=== PATIENT | male | born 1930 | race Hispanic/Latino ===

== ENCOUNTER 2016-12-26 16:41 | Observation (INO) | payer MEDICARE, BC ==
--- NOTE | 2016-12-26 17:52 | ED PDOC ---
Arrival/HPI - General Chief Complaint: Shortness Of Breath Time Seen by Provider: 12/26/16 17:31 Historian: Patient, Family - History of Present Illness Narrative History of Present Illness (Text): 12/26/16 17:49 86-year-old male presents today with shortness of breath and dyspnea on exertion that has been worsening. Family states that the patient was seen by the primary care physician and had outpatient x-rays which showed fluid on the lungs. Patient was told to come to the emergency room for admission to the hospital for dyspnea on exertion and shortness of breath. Patient denies leg pain. States he is doubled his dose of Lasix today. He denies abdominal pain. No nausea or vomiting. Denies chest pain at present time. Denies dizziness or weakness. Time/Duration: 1 week Past Medical History - Provider Review Nursing Documentation Reviewed: Yes - Travel History Have you recently traveled outside [place] w/in the past 3 mons?: No - Infectious Disease Hx of Infectious Diseases: None - Tetanus Immunization Tetanus Immunization: Unknown - Cardiac Hx Hypertension: Yes - Pulmonary Hx Pneumonia: Yes - Neurological Hx Neurological Disorder: No - HEENT Hx HEENT Disorder: No - Renal Other/Comment: ? Bladder Ca per ER report - Endocrine/Metabolic Hx Diabetes Mellitus Type 2: Yes - Hematological/Oncological Hx Blood Transfusions: No Hx Blood Transfusion Reaction: No - Integumentary Hx Dermatological Disorder: No - Musculoskeletal/Rheumatological Hx Falls: No - Gastrointestinal Hx Gastrointestinal Disorders: No (colon polyps) - Genitourinary/Gynecological Hx Genitourinary Disorders: No - Psychiatric Hx Psychophysiologic Disorder: No Hx Emotional Abuse: No Hx Physical Abuse: No Hx Substance Use: No - Past Surgical History Past Surgical History: Non-Contributing - Surgical History Hx Coronary Stent: Yes (X8) - Anesthesia Hx Anesthesia Reactions: Yes (DIFF WAKING UP AFTER A PROCEDURE IN HOSPITAL) Hx Malignant Hyperthermia: No - Suicidal Assessment Feels Threatened In Home Enviroment: No Family/Social History - Physician Review Nursing Documentation Reviewed: Yes Family/Social History: Unknown Family HX Smoking Status: Former Smoker Hx Alcohol Use: Yes (WINE ON OCCASION) Hx Substance Use: No Hx Substance Use Treatment: No Allergies/Home Meds Allergies/Adverse Reactions: Allergies codeine Allergy (Verified 07/21/15 21:04) FATIGUE vancomycin Adverse Reaction (Verified 07/21/15 21:04) RASH Home Medications: Home Meds Medication Instructions Recorded Confirmed Aspirin [Ecotrin] 81 mg PO DAILY 07/21/15 12/26/16 Doxazosin [Cardura] 2 mg PO DAILY 07/21/15 12/26/16 Furosemide [Lasix] 40 mg PO DAILY 07/21/15 12/26/16 Glyburide/Metformin HCl 1 tab PO BID 07/21/15 12/26/16 [Glucovance 5-500 mg Tablet] Losartan Potassium [Cozaar] 50 mg PO DAILY 07/21/15 12/26/16 Metoprolol Succinate [Toprol XL] 100 mg PO DAILY 07/21/15 12/26/16 SITagliptin [Januvia] 50 mg PO DAILY 07/21/15 12/26/16 Simvastatin [Zocor] 20 mg PO DAILY 07/21/15 12/26/16 Folic Acid [Folic Acid] 1 mg PO DAILY 12/26/16 12/26/16 Sucralfate [Carafate] 1 gm PO TID 12/26/16 12/26/16 Review of Systems - Review of Systems Constitutional: absent: Fatigue, Fevers Respiratory: SOB. absent: Cough, Wheezing Cardiovascular: absent: Chest Pain, Palpitations Gastrointestinal: absent: Abdominal Pain, Nausea, Vomiting Genitourinary Male: absent: Dysuria Musculoskeletal: absent: Arthralgias Skin: absent: Rash, Pruritis Neurological: absent: Headache, Dizziness Psychiatric: absent: Anxiety, Depression, Suicidal Ideation Physical Exam Vital Signs Reviewed: Yes Vital Signs Temp Pulse Resp BP Pulse Ox 12/26/16 17:52 18 12/26/16 17:07 98.9 F 89 20 137/71 95 Temperature: Afebrile Blood Pressure: Normal Pulse: Regular Respiratory Rate: Normal Appearance: Positive for: Well-Appearing, Non-Toxic, Comfortable Pain Distress: None Mental Status: Positive for: Alert and Oriented X 3 - Systems Exam Head: Present: Atraumatic Mouth: Present: Moist Mucous Membranes Neck: Present: Normal Range of Motion Respiratory/Chest: Present: Decreased Breath Sounds. No: Respiratory Distress, Wheezes, Tachypneic Cardiovascular: Present: Regular Rate and Rhythm Abdomen: No: Tenderness, Rebound, Guarding Back: Present: Normal Inspection Upper Extremity: Present: Normal Inspection Lower Extremity: Present: Edema, Normal ROM Neurological: Present: GCS=15 Skin: Present: Warm, Dry Psychiatric: Present: Alert, Oriented x 3 Medical Decision Making ED Course and Treatment: 12/26/16 17:51 86yr old male with SOB and DOUGHERTY sent in by PMD for admission. ekg; afib with LBBB at 95b/m no st elevations. compared to 07/21/15 12/26/16 17:55 cbc hgb;10.2 cmp:wnl bnp: 4770 trop: 0.02 cxr: + cardiomegaly with vascular congestion ua: wnl 12/26/16 18:56 laxis given IVP case discussed with dr. chaudhry case discussed with dr. ochoa covering for dr. monreal; accepts observational status admission for chf exacebation impression; CHF exacerbation observational status to tele. - Lab Interpretations Lab Results: 12/26/16 17:40 12/26/16 17:40 Lab Results 12/26/16 18:00: Urine Color Light yellow, Urine Appearance Clear, Urine pH 7.0, Ur Specific [place] 1.010, Urine Protein Negative, Urine Glucose (UA) Negative, Urine Ketones Negative, Urine Blood Negative, Urine Nitrate Negative, Urine Bilirubin Negative, Urine Urobilinogen 0.2, Ur Leukocyte Esterase Negative 12/26/16 17:40: WBC 5.2, RBC 3.24 L, Hgb 10.2 L, Hct 32.2 L, MCV 99.4, MCH 31.5 , MCHC 31.7, RDW 14.5, Plt Count 133, MPV 10.7, Gran % 66.2, Lymph % (Auto) 21.2 L, [place] % (Auto) 11.2 H, Eos % (Auto) 1.2 L, Baso % (Auto) 0.2, Gran # 3.45 , Lymph # 1.1 L, [place] # 0.6, Eos # 0.1, Baso # 0.01 12/26/16 17:40: Sodium 140, Potassium 4.5, Chloride 98, Carbon Dioxide 27, Anion Gap 20, BUN 18, Creatinine 1.1, Est GFR ( Amer) > 60, Est GFR (Non- Af Amer) > 60, Random Glucose 110, Calcium 9.3, Total Bilirubin 0.4, AST 26, ALT 34, Alkaline Phosphatase 48, Lactate Dehydrogenase 335, Total Creatine Kinase 53, Troponin I 0.02 D, NT-Pro-B Natriuret Pep 4770 H, Total Protein 7.5 , Albumin 4.4, Globulin 3.1, Albumin/Globulin Ratio 1.4 - RAD Interpretation Radiology Orders: 12/26/16 17:41 CHEST PORTABLE [RAD] Stat - Medication Orders Current Medication Orders: Discontinued Medications Furosemide (Lasix) 40 mg IVP STAT STA Stop: 12/26/16 18:32 Disposition/Present on Arrival - Present on Arrival Any Indicators Present on Arrival: Yes History of DVT/PE: No History of Uncontrolled Diabetes: Yes Urinary Catheter: No History of Decub. Ulcer: No History Surgical Site Infection Following: None - Disposition Have Diagnosis and Disposition been Completed?: Yes Diagnosis: CHF exacerbation Disposition: HOSPITALIZED Disposition Time: 19:00 Patient Plan: Observation, Telemetry Condition: FAIR Discharge Instructions (ExitCare): Heart Failure (ED) Referrals: Nadir Monreal MD [Primary Care Provider] - Follow up with primary Forms: [employer] (Moroccan)
[2016-12-26 18:02] LABS: BASO # 0.01 K/mm3 (0.0-2.0); BASO % 0.2 % (0.0-3.0); EOS # 0.1 (0.0-0.7); EOS % 1.2 % (1.5-5.0); GRAN # 3.45 (1.4-6.5); GRAN % 66.2 % (50.0-68.0); HEMATOCRIT 32.2 % (42.0-52.0); LYMPH # 1.1 (1.2-3.4); LYMPH % 21.2 % (22.0-35.0); MEAN CELL VOLUME 99.4 fl (80.0-105.0); MEAN CORPUSCULAR HEMOGLOBIN 31.5 pg (25.0-35.0); MEAN CORPUSCULAR HGB CONC 31.7 g/dl (31.0-37.0); MEAN PLATELET VOLUME 10.7 fl (7.0-11.0); MONO # 0.6 (0.1-0.6); MONO % 11.2 % (1.0-6.0); RED CELL DISTRIBUTION WIDTH 14.5 % (11.5-14.5); WHITE BLOOD COUNT 5.2 10^3/ul (4.5-11.0)
[2016-12-26 18:16] LABS: ALB/GLOB RATIO 1.4 (1.1-1.8); ALKALINE PHOSPHATASE 48 U/L (38-133); ALT/SGPT 34 U/L (7-56); AST/SGOT 26 U/L (15-59); BILIRUBIN,TOTAL 0.4 mg/dL (0.2-1.3); BLOOD UREA NITROGEN 18 mg/dL (7-21); CALCIUM 9.3 mg/dL (8.4-10.5); CARBON DIOXIDE 27 mmol/L (21-33); CHLORIDE 98 mmol/L (98-107); GFR AFRICAN-AMERICAN > 60; GLUCOSE,RANDOM 110 mg/dL (70-110); POTASSIUM 4.5 mmol/L (3.6-5.0); SODIUM 140 mmol/L (132-148); TOTAL PROTEIN 7.5 g/dL (5.8-8.3)
--- NOTE | 2016-12-26 18:24 | RAD ---
HISTORY: sob/stewart COMPARISON: 07/21/2015. FINDINGS: LUNGS: There is severe pulmonary venous congestion. There is subsegmental atelectasis/ scarring in the right lung base. No focal consolidation. PLEURA: No significant pleural effusion identified, no pneumothorax apparent. CARDIOVASCULAR: Again seen is severe cardiomegaly. Atherosclerotic aortic arch calcifications are present. OSSEOUS STRUCTURES: No significant abnormalities. VISUALIZED UPPER ABDOMEN: Normal. OTHER FINDINGS: None. IMPRESSION: Severe cardiomegaly and pulmonary venous congestion.
[2016-12-26 18:28] LABS: TROPONIN I 0.02 ng/mL
[2016-12-26 18:30] LABS: URINE APPEARANCE CLEAR (CLEAR); URINE BILIRUBIN NEGATIVE (NEGATIVE); URINE BLOOD NEGATIVE (NEGATIVE); URINE COLOR LIGHT YELLOW (YELLOW); URINE GLUCOSE (UA) NEGATIVE (NEGATIVE); URINE KETONE NEGATIVE (NEGATIVE); URINE LEUKOCYTE ESTERASE NEGATIVE Leu/uL (NEGATIVE); URINE PROTEIN NEGATIVE mg/dL (<30 mg/dL); URINE UROBILINOGEN 0.2 E.U./dL (<1 E.U./dL)
--- NOTE | 2016-12-26 23:10 | CARD ---
APPROVED REPORT EKG Measurement Heart [id number] <Conclusion> Undetermined rhythm Left bundle branch block Abnormal ECG
[2016-12-26 23:20] VITALS: BMI 33.3
[2016-12-26] MEDS ORDERED: Pneumococcal 23-Valent Vaccine IM ONE (23:20)
--- NOTE | 2016-12-27 07:15 | HP ---
HISTORY OF PRESENT ILLNESS: Mr. Pierce is an 86-year-old male well known to me from office. He was admitted with shortness of breath and dyspnea on exertion, which was worsened for past few days. Chest x-ray showed cardiomegaly . He has a history of GI bleed. He recently received IV iron for sudden drop in blood iron level. Stool occult blood was positive. Both family and the patient refused GI workup for further evaluation of GI bleed. He has a history of large gastric ulcer. He has endoscopy more than a year ago. He also has a history of bladder cancer, and follows with Dr. Whiteside. History of CAD. He received IV Lasix 40 mg in the ER. Diabetes mellitus type 2 controlled on current medications. PAST MEDICAL HISTORY: Hepatitis C and treated, CHF, coronary artery disease, bladder cancer, history of GI bleed, iron deficiency anemia. PAST SURGICAL HISTORY: Coronary artery stent. Repeated cystoscopy for bladder cancer. FAMILY HISTORY: Noncontributory. No positive history for mother and father. PERSONAL HISTORY: Former smoker. No history of alcohol abuse. He drinks occasionally wine. ALLERGIES: VANCOMYCIN, CODEINE. SOCIAL HISTORY: Lives with daughter. HOME MEDICATIONS: Aspirin 81 mg daily, Cardura 2 mg daily, Lasix 40 mg daily, glyburide metformin one tablet p.o. b.i.d., Cozaar 50 mg daily, metoprolol 100 mg daily, Januvia 50 mg daily, Zocor 20 mg daily, folic acid 1 mg daily, Carafate 1 gram p.o. t.i.d. REVIEW OF SYSTEMS: As per HPI. Rest of the 12-point review of systems reviewed and negative. PHYSICAL EXAMINATION: GENERAL: Comfortable in bed. In no acute distress. Alert and oriented x3. VITAL SIGNS: Temperature 98.7, heart rate is 89 per minute, blood pressure 137/70, pulse oximetry is 95% on oxygen by nasal cannula. HEENT: Normal. NECK: No lymphadenopathy. CHEST: Air entry present and equal bilaterally. No added sounds. CARDIOVASCULAR: S1 and S2 normal. No murmur. No gallop. ABDOMEN: Soft, nontender. No hepatosplenomegaly. No guarding and no rigidity. EXTREMITIES: No edema. SKIN: Warm and dry. SPINE: Nontender. [employer]: Awake, alert, and oriented x3. No focal sensory motor deficit. LABORATORY DATA: White count 5.2, hemoglobin 10.2, hematocrit 32.2, and platelet count 133. Sodium 140, potassium 4.5, BUN 18, creatinine 1.1, glucose 110. BNP 4700, troponin 0.02. Chest x-ray, cardiomegaly. Bilateral pleural effusion. ASSESSMENT: 1. Congestive heart failure acute exacerbation. 2. Coronary artery disease. 3. Chronic iron deficiency anemia. 4. History of gastrointestinal bleed. 5. History of bladder cancer. 6. Diabetes mellitus type 2. 7. Hepatitis C untreated. PLAN: He will be admitted to daily monitoring. Continue aspirin 81 mg daily, Lipitor 10 mg daily, Cardura 2 mg p.o. daily. Continue folic acid 1 mg daily, Lasix 40 mg IV b.i.d., potassium supplement 20 mEq p.o. b.i.d. We will continue Cozaar 50 mg daily, metoprolol 100 mg p.o. daily. Glucose check q.c. and at bedtime, Januvia 50 mg daily. We will continue cardiology consultation with Dr. Beach requested. Heart healthy diet. Continue to monitor vital signs q.4h. Bedside physical therapy. Anemia, hemoglobin and hematocrit stable. Recent IV at an infusion. Has occult GI bleed, stool occult blood positive as outpatient. Family does not want any further workup for GI. History of bladder cancer followed by Dr. Whiteside. Untreated hepatitis C. Family declined treatment for hepatitis C. Lisset Alexander MD [facility]
[2016-12-27] MEDS: Levalbuterol 0.63 MG/3 ML Inhal Soln UD IH SCH ×3 (07:45→19:29)
[2016-12-27] MEDS ORDERED: Metoprolol Succinate 100 mg XL Tab PO SCH (10:00)
[2016-12-27] MEDS ORDERED: DOXAZOSIN 2 MG PO SCH (10:00)
--- NOTE | 2016-12-27 12:06 | CON ---
DATE: 12/27/2016 CONSULTATION INDICATION: Shortness of breath and congestive heart failure. HISTORY OF PRESENT ILLNESS: This is an 86-year-old man well known to me admitted yesterday after he was sent to the emergency room with complaints of dyspnea and abnormal chest x-ray. He complained of shortness of breath, which had been getting worse for a few days. There was no chest pain, orthopnea, PND, syncope, presyncope, lightheadedness, dizziness, vertigo, palpations, claudication, fever, chills, cough, sputum production, hemoptysis, abdominal pain, nausea, vomiting, diarrhea, constipation or melena. Since admission, he has received IV Lasix with diuresis. His breathing has improved. He is resting comfortably on telemetry this morning. PAST MEDICAL HISTORY: Complex. He has coronary artery disease with remote myocardial infarction and remote coronary intervention. He has moderate LV dysfunction, congestive heart failure, atrial fibrillation, and echocardiography has revealed mild to moderate tricuspid regurgitation and moderate pulmonary hypertension. There was a history of diabetes, peripheral neuropathy, hypertension, left bundle-branch block, bladder cancer followed by Dr. Whiteside, B12 deficiency, clonic polyps, and GI bleeding with iron deficiency anemia. He has been followup by Dr. Alexander, he has refused additional GI evaluation in favor of conservative management. There is a history of hepatitis C and he is a former smoker. There is no history rheumatic fever, stroke, TIA, or gout. MEDICATION AT THE TIME OF ADMISSION: Include aspirin, Cardura, Lasix, glyburide, metformin, Cozaar, metoprolol, Januvia, Zocor, folic acid, Carafate, and melatonin. ALLERGIES: HE NOTES AN ALLERGY TO CODEINE AND VANCOMYCIN. SOCIAL HISTORY: He lives at home with assistance by his family. He does not currently smoke cigarettes. He does not drink alcohol significantly. He is ambulatory, but limited. REVIEW OF SYSTEMS: A 10-point review of systems is otherwise unremarkable. FAMILY HISTORY: Noncontributory. PHYSICAL EXAMINATION: GENERAL: He is well-developed elderly male lying in bed on telemetry, in no acute distress. VITAL SIGNS: Notable for atrial fibrillation with heart rate 60 to 89 beats per minute. He is afebrile. Blood pressure is 118/59, respirations are 18 to 20, O2 saturation of 95% to 98% on room air. HEENT: Exam reveals no neck vein distention, thyromegaly or carotid bruit. Mucous membranes are moist. Conjunctivae are pink. NECK: Supple. LUNGS: Lung hines, scattered rhonchi and a few rales at the bases. CARDIOVASCULAR: Examination of heart reveals normal first and second heart sounds. There is a soft systolic murmur along the left sternal border. PMI is not palpable. ABDOMEN: Obese and benign. Bowel sounds present. No mass, organomegaly, tenderness, rebound, guarding, CVA tenderness, or palpable abdominal aortic aneurysm. EXTREMITIES: Exam revealed no cyanosis, clubbing or edema. NEUROLOGIC: Awake, alert and oriented. SKIN: Warm and dry. No rashes cellulitis. PSYCHIATRIC: Normal as to mood and affect. LABORATORY AND IMAGING DATA: A portable chest x-ray reveals cardiomegaly and vascular congestion. EKG demonstrates atrial fibrillation and left bundle-branch block. White count is normal and platelet count is normal. Hemoglobin is 10.2 and hematocrit is 32.2. Electrolytes; BUN, creatinine, blood sugar and liver function test are unremarkable. CK of 53, troponin of 0.02, and BNP of 4770. Urinalysis noted. IMPRESSION: Josh Pierce is an 86-year-old man with known heart disease admitted with increasing dyspnea in the setting of worsening congestive heart failure with responded to therapy with intravenous Lasix with improved symptomatology. He is in atrial fibrillation, but not on anticoagulation because of history of gastrointestinal bleeding and iron deficiency anemia. He has refused gastrointestinal evaluation in favor of conservative management. PLAN: At this time, I agree with current plans. I will continue IV Lasix and monitor I's and O's and labs. Check stool for occult blood. Review of old records including last year's echocardiogram. I would continue metoprolol, Lipitor as a substitute for Zocor, aspirin, Losartan, and Cardura. He can be out of bed to a chair. I will follow along with you and I will make additional recommendation based on his clinical course. Overall a conservative course of cardiac care is anticipated. Ney Beach MD [facility]
[2016-12-28] MEDS: Levalbuterol 0.63 MG/3 ML Inhal Soln UD IH SCH ×3 (07:35→19:22)
[2016-12-28] MEDS: MELATONIN 10 MG PO SCH ×2 (07:37→21:23)
[2016-12-28 08:33] LABS: BLOOD UREA NITROGEN 24 mg/dL (7-21); CALCIUM 9.1 mg/dL (8.4-10.5); CARBON DIOXIDE 31 mmol/L (21-33); CHLORIDE 98 mmol/L (98-107); GFR AFRICAN-AMERICAN > 60; GLUCOSE,RANDOM 122 mg/dL (70-110); POTASSIUM 3.8 mmol/L (3.6-5.0); SODIUM 139 mmol/L (132-148)
[2016-12-28] MEDS: Metoprolol Succinate 50 mg XL Tab PO SCH (09:55)
--- NOTE | 2016-12-28 21:06 | CARD ---
APPROVED REPORT EKG Measurement Heart [id number] <Conclusion> Atrial fibrillation with slow ventricular response Left bundle branch block Abnormal ECG
--- NOTE | 2016-12-28 21:16 | CP.PCM.PN ---
Subjective - Date & Time of Evaluation Date of Evaluation: 12/28/16 Time of Evaluation: 10:00 - Subjective Subjective: HISTORY OF PRESENT ILLNESS: Mr. Pierce is an 86-year-old male well known to me from office. He was admitted with shortness of breath and dyspnea on exertion, which was worsened for past few days. Chest x-ray showed cardiomegaly . He has a history of GI bleed. He recently received IV iron for sudden drop in blood iron level. Stool occult blood was positive. Both family and the patient refused GI workup for further evaluation of GI bleed. He has a history of large gastric ulcer. He has endoscopy more than a year ago. He also has a history of bladder cancer, and follows with Dr. Whiteside. History of CAD. He received IV Lasix 40 mg in the ER. Diabetes mellitus type 2 controlled on current medications. he had pauses on tele monitoring. Beta zafar dose reduced by Dr. Beach. Able to sleep in night. Complaining of nasal congestion. No fever. PAST MEDICAL HISTORY: Hepatitis C and treated, CHF, coronary artery disease, bladder cancer, history of GI bleed, iron deficiency anemia. PAST SURGICAL HISTORY: Coronary artery stent. Repeated cystoscopy for bladder cancer. FAMILY HISTORY: Noncontributory. No positive history for mother and father. PERSONAL HISTORY: Former smoker. No history of alcohol abuse. He drinks occasionally wine. ALLERGIES: VANCOMYCIN, CODEINE. SOCIAL HISTORY: Lives with daughter. HOME MEDICATIONS: reviewed. REVIEW OF SYSTEMS: As per HPI. Rest of the 12-point review of systems reviewed and negative. PHYSICAL EXAMINATION: GENERAL: Comfortable in bed. In no acute distress. Alert and oriented x3. VITAL SIGNS: reviewed. HEENT: Normal. NECK: No lymphadenopathy. CHEST: Air entry present and equal bilaterally. No added sounds. CARDIOVASCULAR: S1 and S2 normal. No murmur. No gallop. ABDOMEN: Soft, nontender. No hepatosplenomegaly. No guarding and no rigidity. EXTREMITIES: No edema. SKIN: Warm and dry. SPINE: Nontender. HOMEBIRTH MIDWIFE: Awake, alert, and oriented x3. No focal sensory motor deficit. LABORATORY DATA: reviewed. ASSESSMENT: 1. Congestive heart failure acute exacerbation. 2. Coronary artery disease. 3. Chronic iron deficiency anemia. 4. History of gastrointestinal bleed. 5. History of bladder cancer. 6. Diabetes mellitus type 2. 7. Hepatitis C untreated. 8. B12 deficiency PLAN: Pause on tele. Metoprolol dose reduced to 50 mg daily. Continue aspirin 81 mg daily, Lipitor 10 mg daily, Cardura 2 mg p.o. daily. Continue folic acid 1 mg daily, Lasix 40 mg IV b.i.d., potassium supplement 20 mEq p.o. b.i.d. continue Cozaar 50 mg daily, metoprolol 100 mg p.o. daily. Glucose check q.c. and at bedtime, Januvia 50 mg daily. cardiology consultation with Dr. Beach appreciated. . Anemia, hemoglobin and hematocrit stable. Recent IV iron infusion. Has occult GI bleed, stool occult blood positive as outpatient. Family does not want any further workup for GI. On B12 IM monthly. History of bladder cancer followed by Dr. Whiteside. Untreated hepatitis C. Family declined treatment for hepatitis C. If rythm stable for next 24 hours, discharge planning. Lisset Alexander MD Objective - Vital Signs/Intake and Output Vital Signs (last 24 hours): Temp Pulse Resp BP Pulse Ox 98.4 F 55 L 18 103/76 98 12/28/16 16:47 12/28/16 16:47 12/28/16 16:47 12/28/16 18:06 12/28/16 00:01 Intake and Output: 12/28/16 12/29/16 18:59 06:59 Output Total 625 Balance -625 - Medications Medications: Current Medications Aspirin (Ecotrin) 81 mg PO DAILY [facility] Last Admin: 12/28/16 09:55 Dose: 81 mg Atorvastatin Calcium (Lipitor) 10 mg PO HS [facility] Last Admin: 12/27/16 21:45 Dose: 10 mg Doxazosin Mesylate (Cardura) 2 mg PO DAILY [facility] Last Admin: 12/28/16 10:10 Dose: 2 mg Folic Acid (Folic Acid) 1 mg PO DAILY [facility] Last Admin: 12/28/16 09:55 Dose: 1 mg Furosemide (Lasix) 40 mg IVP BID [facility] Last Admin: 12/28/16 18:06 Dose: 40 mg Glyburide (Micronase) 5 mg PO BID [facility] Last Admin: 12/28/16 18:05 Dose: 5 mg Levalbuterol HCl (Xopenex) 0.63 mg IH TIDRESP [facility] Last Admin: 12/28/16 19:22 Dose: 0.63 mg Losartan Potassium (Cozaar) 50 mg PO DAILY [facility] Last Admin: 12/28/16 09:55 Dose: 50 mg Metformin HCl (Glucophage) 500 mg PO BID [facility] Last Admin: 12/28/16 18:12 Dose: 500 mg Metoprolol Succinate (Toprol Xl) 50 mg PO DAILY [facility] Last Admin: 12/28/16 09:55 Dose: 50 mg Melatonin [Melatonin (] 10 Mg (Home Med)) 10 mg PO HS [facility] Last Admin: 12/28/16 07:37 Dose: Not Given Sitagliptin Phosphate (Januvia) 50 mg PO DAILY [facility] Last Admin: 12/28/16 09:56 Dose: 50 mg Sodium Chloride ([place] Nasal [place]) 0 ml NS BID [facility] Last Admin: 12/28/16 17:31 Dose: 2 drop - Labs Labs: 12/28/16 07:20
[2016-12-29 00:12] VITALS: RESP 20
--- NOTE | 2016-12-29 00:56 | CP.PCM.PN ---
Subjective - Date & Time of Evaluation Date of Evaluation: 12/29/16 Time of Evaluation: 00:55 - Subjective Subjective: Patient was seen because he had requested nasal spray. Indicates that he has nasal congestion. He received Morton Alger nasal spray at 6PM: Has no other complaints now. ROS:Negative except as mentioned above. Medical record was reviewed. This 86 year old male was admitted with sob, stewart, CHF acute exacerbation. Has PMH of CAD, CHF, hepatitis C, Obesity, bladder cancer , GI bleeding, iron deficiency anemia, coronary stent, multiple cystoscopies. Objective - Vital Signs/Intake and Output Vital Signs (last 24 hours): Temp Pulse Resp BP Pulse Ox 98.1 F 54 L 20 101/55 L 96 12/29/16 00:01 12/29/16 00:01 12/29/16 00:01 12/29/16 00:01 12/29/16 00:01 Intake and Output: 12/28/16 12/29/16 18:59 06:59 Output Total 625 Balance -625 - Medications Medications: Current Medications Aspirin (Ecotrin) 81 mg PO DAILY [facility] Last Admin: 12/28/16 09:55 Dose: 81 mg Atorvastatin Calcium (Lipitor) 10 mg PO HS [facility] Last Admin: 12/28/16 21:21 Dose: 10 mg Doxazosin Mesylate (Cardura) 2 mg PO DAILY [facility] Last Admin: 12/28/16 10:10 Dose: 2 mg Folic Acid (Folic Acid) 1 mg PO DAILY [facility] Last Admin: 12/28/16 09:55 Dose: 1 mg Furosemide (Lasix) 40 mg IVP BID [facility] Last Admin: 12/28/16 18:06 Dose: 40 mg Glyburide (Micronase) 5 mg PO BID [facility] Last Admin: 12/28/16 18:05 Dose: 5 mg Levalbuterol HCl (Xopenex) 0.63 mg IH TIDRESP [facility] Last Admin: 12/28/16 19:22 Dose: 0.63 mg Losartan Potassium (Cozaar) 50 mg PO DAILY [facility] Last Admin: 12/28/16 09:55 Dose: 50 mg Metformin HCl (Glucophage) 500 mg PO BID [facility] Last Admin: 12/28/16 18:12 Dose: 500 mg Metoprolol Succinate (Toprol Xl) 50 mg PO DAILY [facility] Last Admin: 12/28/16 09:55 Dose: 50 mg Melatonin [Melatonin (] 10 Mg (Home Med)) 10 mg PO HS [facility] Last Admin: 12/28/16 21:23 Dose: 10 mg Sitagliptin Phosphate (Januvia) 50 mg PO DAILY [facility] Last Admin: 12/28/16 09:56 Dose: 50 mg Sodium Chloride (Morton Nasal Alger) 0 ml NS BID [facility] Last Admin: 12/28/16 17:31 Dose: 2 drop - Labs Labs: 12/28/16 07:20 Most Recent Lab Values WBC 5.2 10^3/ul (4.5-11.0) 12/26/16 17:40 RBC 3.24 10^6/uL (3.5-6.1) L 12/26/16 17:40 Hgb 10.2 g/dL (14.0-18.0) L 12/26/16 17:40 Hct 32.2 % (42.0-52.0) L 12/26/16 17:40 MCV 99.4 fl (80.0-105.0) 12/26/16 17:40 MCH 31.5 pg (25.0-35.0) 12/26/16 17:40 MCHC 31.7 g/dl (31.0-37.0) 12/26/16 17:40 RDW 14.5 % (11.5-14.5) 12/26/16 17:40 Plt Count 133 10^3/uL (120.0-450.0) 12/26/16 17:40 MPV 10.7 fl (7.0-11.0) 12/26/16 17:40 Gran % 66.2 % (50.0-68.0) 12/26/16 17:40 Lymph % (Auto) 21.2 % (22.0-35.0) L 12/26/16 17:40 [place] % (Auto) 11.2 % (1.0-6.0) H 12/26/16 17:40 Eos % (Auto) 1.2 % (1.5-5.0) L 12/26/16 17:40 Baso % (Auto) 0.2 % (0.0-3.0) 12/26/16 17:40 Gran # 3.45 (1.4-6.5) 08/25/17 17:40 Lymph # 1.1 (1.2-3.4) L 12/26/16 17:40 [place] # 0.6 (0.1-0.6) 12/26/16 17:40 Eos # 0.1 (0.0-0.7) 12/26/16 17:40 Baso # 0.01 K/mm3 (0.0-2.0) 12/26/16 17:40 Sodium 139 mmol/L (132-148) 12/28/16 07:20 Potassium 3.8 mmol/L (3.6-5.0) 12/28/16 07:20 Chloride 98 mmol/L (98-107) 12/28/16 07:20 Carbon Dioxide 31 mmol/L (21-33) 12/28/16 07:20 Anion Gap 14 (10-20) 12/28/16 07:20 BUN 24 mg/dL (7-21) H 12/28/16 07:20 Creatinine 1.1 mg/dL (0.5-1.4) 12/28/16 07:20 Est GFR ( Amer) > 60 12/28/16 07:20 Est GFR (Non-Af Amer) > 60 12/28/16 07:20 POC Glucose (mg/dL) 203 mg/dL (65-110) H 12/28/16 16:57 Random Glucose 122 mg/dL (70-110) H 12/28/16 07:20 Calcium 9.1 mg/dL (8.4-10.5) 12/28/16 07:20 Total Bilirubin 0.4 mg/dL (0.2-1.3) 12/26/16 17:40 AST 26 U/L (15-59) 12/26/16 17:40 ALT 34 U/L (7-56) 12/26/16 17:40 Alkaline Phosphatase 48 U/L (38-133) 12/26/16 17:40 Lactate Dehydrogenase 335 U/L (333-699) 12/26/16 17:40 Total Creatine Kinase 53 U/L (35-230) 12/26/16 17:40 Troponin I 0.02 ng/mL D 12/26/16 17:40 NT-Pro-B Natriuret Pep 4770 pg/mL (0-450) H 12/26/16 17:40 Total Protein 7.5 g/dL (5.8-8.3) 12/26/16 17:40 Albumin 4.4 g/dL (3.0-4.8) 12/26/16 17:40 Globulin 3.1 gm/dL 12/26/16 17:40 Albumin/Globulin Ratio 1.4 (1.1-1.8) 12/26/16 17:40 Urine Color Light yellow (YELLOW) 12/26/16 18:00 Urine Appearance Clear (CLEAR) 12/26/16 18:00 Urine pH 7.0 (4.7-8.0) 12/26/16 18:00 Ur Specific [place] 1.010 (1.005-1.035) 12/26/16 18:00 Urine Protein Negative mg/dL (<30 mg/dL) 12/26/16 18:00 Urine Glucose (UA) Negative mg/dL (NEGATIVE) 12/26/16 18:00 Urine Ketones Negative mg/dL (NEGATIVE) 12/26/16 18:00 Urine Blood Negative (NEGATIVE) 12/26/16 18:00 Urine Nitrate Negative (NEGATIVE) 12/26/16 18:00 Urine Bilirubin Negative (NEGATIVE) 12/26/16 18:00 Urine Urobilinogen 0.2 E.U./dL (<1 E.U./dL) 12/26/16 18:00 Ur Leukocyte Esterase Negative Pa[place]/uL (NEGATIVE) 12/26/16 18:00 - Constitutional Appears: Well, No Acute Distress - Head Exam Head Exam: ATRAUMATIC, NORMAL INSPECTION, NORMOCEPHALIC Additional comments: Obese person. - Eye Exam Eye Exam: Normal appearance - ENT Exam ENT Exam: Mucous Membranes Moist, Normal External Ear Exam - Neck Exam Neck Exam: Normal Inspection - Respiratory Exam Respiratory Exam: NORMAL BREATHING PATTERN - Cardiovascular Exam Cardiovascular Exam: absent: JVD - GI/Abdominal Exam GI & Abdominal Exam: absent: Distended - Exam Additional comments: Deferred. - Extremities Exam Extremities Exam: Normal Inspection - Back Exam Back Exam: NORMAL INSPECTION - Neurological Exam Neurological Exam: Alert, Awake - Psychiatric Exam Psychiatric exam: Normal Affect, Normal Mood - Skin Skin Exam: Normal Color Assessment and Plan - Assessment and Plan (Free Text) Assessment: Nasal congestion. CHF exacerbation. CAD. HTN. Hx Hepatitis. Obesity. Hx bladder cancer. Anemia-Iron def. Plan: Morton Alger nasal spray stat. Continue present management.
[2016-12-29 07:01] LABS: BLOOD UREA NITROGEN 28 mg/dL (7-21); CARBON DIOXIDE 31 mmol/L (21-33); CHLORIDE 99 mmol/L (98-107); GFR AFRICAN-AMERICAN > 60; GLUCOSE,RANDOM 121 mg/dL (70-110); MAGNESIUM 2.1 mg/dL (1.7-2.2); POTASSIUM 4.6 mmol/L (3.6-5.0); SODIUM 140 mmol/L (132-148)
[2016-12-29 08:03] VITALS: O2SAT 99
[2016-12-29] MEDS: Levalbuterol 0.63 MG/3 ML Inhal Soln UD IH SCH ×2 (08:23→13:22)
[2016-12-29] MEDS: Metoprolol Succinate 50 mg XL Tab PO SCH (09:27)
[2016-12-29 12:26] VITALS: BP 134/84; PULSE 60; TEMP 97.1
--- NOTE | 2016-12-29 13:00 | PN ---
DATE: 12/29/2016 SUBJECTIVE: The patient is seen sitting in chair, on telemetry. He is comfortable at the present time. He denies any lightheadedness or syncope. He states his dyspnea is improved. CURRENT MEDICATIONS: Include Cardura, Cozaar 50 mg daily, Ecotrin once daily, Glucophage 500 mg b.i.d., Januvia 50 mg daily, Lasix 40 mg IV b.i.d., Lipitor 10 mg daily, Micronase 5 mg b.i.d., Toprol-XL 50 mg daily, and Xopenex. OBJECTIVE: GENERAL: He is an elderly man, appears comfortable at rest. VITAL SIGNS: Blood pressure is 140/66, pulse of 50 to 60 and in atrial fibrillation, and respirations are 16. He is currently afebrile. HEENT: No JVD. CHEST: Few scattered rhonchi heard. HEART: PMI displaced laterally with systolic murmur left sternal border. ABDOMEN: Soft and nontender with normoactive bowel sounds. EXTREMITIES: No edema. DIAGNOSTIC DATA: Potassium is 4.6 and BUN and creatinine are 28 and 1.3. IMPRESSION: 1. Decompensating congestive heart failure, acute on chronic primarily diastolic in nature, clinically improved. 2. Atrial fibrillation with slow ventricular response, metoprolol has been on hold. 3. History of gastrointestinal bleeding, refusing invasive workup. 4. Coronary artery disease, status post percutaneous coronary intervention. RECOMMENDATIONS: Lasix can be switched to oral administration. Metoprolol will be held today and resumed at 50 mg daily tomorrow. Continue certain restriction was advised. He remain of anticoagulation, despite his stroke risk, given his history of severe GI bleeding in the past. From a cardiac standpoint, he appears stable for discharge home today and outpatient follow up will be arranged. Juan David Vincent MD
--- NOTE | 2017-01-07 19:56 | DS ---
DISCHARGE DIAGNOSES: 1. Congestive cardiac failure, acute exacerbation. 2. History of gastrointestinal bleed. 3. Chronic iron deficiency anemia. 4. Coronary artery disease. 5. Hepatitis C, untreated. HOSPITAL COURSE: The patient was admitted with shortness of breath. The cardiology consultation was started during the hospitalization. The heart failure was optimized with medical management. He improved during the hospitalization. He has also CAD. Diabetes mellitus is fairly controlled. He has history of GI bleed. He receives IV iron as outpatient. He is currently in stable condition, being discharged home. PHYSICAL EXAMINATION ON DISCHARGE: GENERAL: Comfortable in bed, in no acute distress. VITAL SIGNS: Stable. Temperature 98.6, heart rate is 80 per minute, blood pressure 130/70, and pulse ox is 98% on room air. HEENT: Normal. Pallor positive. NECK: No lymphadenopathy. CHEST: Air entry present and equal bilaterally. No added sounds. CARDIOVASCULAR EXAM: S1 and S2 normal. No murmur and no gallop. ABDOMEN: Soft and nontender. No hepatosplenomegaly. EXTREMITIES: No edema. CR[employer] SC[employer] ANALYST: Alert and oriented x3. SPINE: Nontender. LABORATORY DATA: White count 5.2, hemoglobin 10.2, hematocrit 32.2, and platelet 133. Sodium 140, potassium 4.6, and creatinine 1.3. DISPOSITION: Discharge home. DISCHARGE MEDICATIONS: Aspirin 81 mg daily, Lipitor 10 mg daily, Cardura 2 mg daily, folic acid 1 mg daily, Lasix 40 mg daily, Micronase 5 mg p.o. b.i.d., Cozaar 50 mg daily, Glucophage 500 mg p.o. b.i.d., and metoprolol 100 mg daily. CONDITION ON DISCHARGE: Stable. DIET: Regular. FOLLOWUP: Followup with in one week. Followup with Dr. Alexander for anemia, one week. All prescriptions given. Discussed with the staff nurse, discussed with the patient, discussed with daughter. Time spent in preparing discharge and coordinating care 50 minutes. Lisset Alexander MD
== END 2016-12-29 14:33 | disposition home or self-care (01) ==
LOC: ED 16:41 → ERH 19:43 → 2RSO 22:08
PROVIDERS: ADMIT Internal Medicine Nephrology; ATTEND Internal Medicine Nephrology
DX: I11.0 Hypertensive heart disease with heart failure (principal); I50.33 Acute on chronic diastolic (congestive) heart failure; I25.10 Atherosclerotic heart disease of native coronary artery without angina pectoris; D50.9 Iron deficiency anemia, unspecified; B19.20 Unspecified viral hepatitis C without hepatic coma; I27.2 Other secondary pulmonary hypertension; I48.91 Unspecified atrial fibrillation; E11.42 Type 2 diabetes mellitus with diabetic polyneuropathy; E53.8 Deficiency of other specified B group vitamins; R09.81 Nasal congestion; I36.1 Nonrheumatic tricuspid (valve) insufficiency; I25.2 Old myocardial infarction; E66.9 Obesity, unspecified; Z68.33 Body mass index [BMI] 33.0-33.9, adult; Z87.11 Personal history of peptic ulcer disease; Z85.51 Personal history of malignant neoplasm of bladder; Z79.82 Long term (current) use of aspirin; Z79.84 Long term (current) use of oral hypoglycemic drugs; Z95.5 Presence of coronary angioplasty implant and graft; Z87.891 Personal history of nicotine dependence
CPT/HCPCS: 36415; 71010; 80048; 80053; 81003; 82550; 82948; 83615; 83735; 83880; 84484; 85025; 93005; 94640; 96374; 99285; G0378; J1940

== ENCOUNTER 2017-06-07 17:05 | Inpatient (IN) | payer OTHER, BC ==
[2017-06-07 18:31] VITALS: BMI 35.5
[2017-06-07] MEDS: Nystatin 100,000 Units/gm Topical Pow(15 gm) TOP SCH (19:09)
[2017-06-07] MEDS: Levalbuterol 1.25 MG/3 ML Inhal Soln UD IH SCH (21:48)
[2017-06-07] MEDS: Insulin Lispro (humaLOG) MEDIUM Coverage SC SCH (21:53)
[2017-06-08] MEDS: Pantoprazole 40 mg EC Tab PO SCH (05:21)
[2017-06-08] MEDS: Nystatin 100,000 Units/gm Topical Pow(15 gm) TOP SCH ×2 (05:29→17:37)
[2017-06-08] MEDS: Insulin Lispro (humaLOG) MEDIUM Coverage SC SCH ×4 (06:47→22:05)
--- NOTE | 2017-06-08 07:51 | CP.PCM.PN ---
Subjective - Date & Time of Evaluation Date of Evaluation: 06/08/17 Time of Evaluation: 07:00 - Subjective Subjective: Stable on TCU now. Stll some orthopnea and Congestion. No CP. V/S noted. PE: Lungs: rhonchi Cor.: irreg, S1S2 Abd.: soft Ext.: + edema Neuro.: alert 2/4 BMP noted. Objective - Vital Signs/Intake and Output Vital Signs (last 24 hours): Temp Pulse Resp BP Pulse Ox 97.9 F 89 20 128/79 06/07/17 19:37 06/07/17 21:53 06/07/17 19:37 06/07/17 19:37 - Medications Medications: Current Medications Acetaminophen (Tylenol 325mg Tab) 650 mg PO Q6H PRN; Protocol PRN Reason: Fever >100.4 F Aspirin (Ecotrin) 81 mg PO 0800 [facility] PRN Reason: Protocol Atorvastatin Calcium (Lipitor) 10 mg PO DIN [facility] PRN Reason: Protocol Last Admin: 06/07/17 19:08 Dose: 10 mg Doxazosin Mesylate (Cardura) 4 mg PO DAILY [facility] PRN Reason: Protocol Folic Acid (Folic Acid) 1 mg PO DAILY [facility] PRN Reason: Protocol Furosemide (Lasix) 40 mg PO BID [facility] PRN Reason: Protocol Last Admin: 06/07/17 19:08 Dose: 40 mg Insulin Human Lispro (Humalog Med) 0 units SC ACHS [facility] PRN Reason: Protocol Last Admin: 06/08/17 06:47 Dose: 1 units Levalbuterol HCl (Xopenex) 1.25 mg IH TIDRESP [facility] PRN Reason: Protocol Last Admin: 06/07/17 21:48 Dose: 1.25 mg Levalbuterol HCl (Xopenex) 1.25 mg IH Q2H PRN; Protocol PRN Reason: Shortness of Breath Losartan Potassium (Cozaar) 50 mg PO DAILY [facility] PRN Reason: Protocol Mupirocin (Bactroban Ointment) 0 gm NS BID [facility] PRN Reason: Protocol Stop: 06/12/17 18:01 Nystatin (Nystop Topical Powder) 0 gm TOP Q12H [facility] PRN Reason: Protocol Last Admin: 06/08/17 05:29 Dose: 1 applic Pantoprazole Sodium (Protonix Ec Tab) 40 mg PO 0600 [facility] PRN Reason: Protocol Last Admin: 06/08/17 05:21 Dose: 40 mg Polyethylene Glycol (Miralax) 17 gm PO BID [facility] PRN Reason: Protocol Sitagliptin Phosphate (Januvia) 50 mg PO DAILY [facility] PRN Reason: Protocol Assessment and Plan - Assessment and Plan (Free Text) Assessment: Dyspnea/Cough/Congested NSTEMI CHF Influenza CAD/Old CA/Remote PCI/Moderate LVD AF. No A/C b/o GIB and bleeding (recent, while on heparin drip) Moderate TR and PH on echo Diabetes COPD PN LBBB Bladder cancer Anemia Plan: Continue BID PO Lasix Monitor labs, I/O. F/U CXR today OOB as gale/PT/Rehab efforts
[2017-06-08] MEDS: Levalbuterol 1.25 MG/3 ML Inhal Soln UD IH SCH ×3 (08:51→20:20)
--- NOTE | 2017-06-08 09:01 | PN ---
DATE: 06/08/2017 PULMONARY NOTE SUBJECTIVE: Patient appears comfortable this morning. He is not short of breath at rest. PHYSICAL EXAMINATION: VITAL SIGNS (Last noted in the computer): Temperature 97.9, pulse 89, respirations 18/20, blood pressure 128/79. Oxygen saturation on nasal cannula ranges between 92%-97%. HEENT: Normocephalic, atraumatic. No JVD. CARDIOVASCULAR: Systolic ejection murmur at the lower left sternal border. Questionable S3 gallop. LUNGS: Minimal crackles at the bases. Minimal bilateral rhonchi. No wheezing. EXTREMITIES: Positive for edema. No cyanosis, no clubbing. Calves are nontender to palpation. GASTROINTESTINAL: Abdomen is soft, nontender and nondistended. Bowel sounds are positive. SKIN: No acute rash. NEUROLOGIC: Limited at the present time. IMPRESSION: 1. Acute congestive heart failure. 2. Chronic obstructive pulmonary disease. 3. Influenza A positivity. 4. Mild bronchospasm. 5. Coronary artery disease. 6. Possible underlying pneumonia. PLAN: Patient appears comfortable this morning. He is not short of breath at rest. He does state to feeling better overall. On physical exam, there is no significant bronchospasm noted. In addition, there is no significant alveolar-arterial gradient. I will continue with the current nebulizer treatments for now. I would continue with the treatment for congestive heart failure, as per Cardiology. The patient remains on Lasix/afterload reduction. I would continue with the Infectious Disease evaluation. Inputs are noted. Clinical status of the patient is certainly improved - compared to the initial presentation. The patient is now on the Transitional Unit - where he will participate with physical therapy. I will discuss the above with the attending physician. Brandon Camacho MD [facility]
--- NOTE | 2017-06-08 09:36 | PN ---
DATE: 06/06/2017 SUBJECTIVE: Patient is seen in bed, in no acute distress. Nontoxic. Patient was seen early this morning. PHYSICAL EXAMINATION: VITAL SIGNS: Temperature is 98, blood pressure is 116/60, respiratory rate 16. HEENT: Examination of HEENT is unremarkable. NECK: Supple. LUNGS: Have decreased breath sounds. HEART: Normal S1 and S2. ABDOMEN: Soft, nontender. LABORATORY DATA: Reveals a white count of 4.6, hemoglobin of 9, platelets of 110. BUN is 32, creatinine of 1.2, and procalcitonin is . Blood cultures have no growth. Urine cultures have no growth. MRSA is not detected. ASSESSMENT AND PLAN: An 87-year-old male who was seen early this morning, who has systemic inflammatory response syndrome and severe sepsis, with acute renal failure due to influenza and community-acquired pneumonia, coronary artery disease, chronic congestive heart failure, hypertension, history of bronchitis, day #6 day of Tamiflu, day #6 of Zithromax. Patient is doing well. Tamiflu is now off. Patient is still on p.o. Zithromax. Lalito Willis MD
--- NOTE | 2017-06-08 10:51 | RAD ---
HISTORY: F/U CHF, Influenza,Dyspnea COMPARISON: 06/01/2017 TECHNIQUE: Chest PA and lateral FINDINGS: LUNGS: No evidence of pneumonia PLEURA: No significant pleural effusion identified. No pneumothorax apparent. CARDIOVASCULAR: Mild cardiomegaly. Mild vascular congestion and peribronchial thickening. OSSEOUS STRUCTURES: No significant abnormalities. VISUALIZED UPPER ABDOMEN: Normal. OTHER FINDINGS: None. IMPRESSION: Mild cardiomegaly. Mild vascular congestion and peribronchial thickening.
--- NOTE | 2017-06-08 11:48 | PN ---
DATE: SUBJECTIVE: The patient has no complaints of any chest pain or shortness of breath. No headaches or dizziness. The patient is in the Transitional Care Unit for rehab. His initial H and P has been reviewed. He had come in with positive flu. He has no complaints of any headaches or dizziness. He states he is eating. PHYSICAL EXAMINATION VITAL SIGNS: Temperature is 97.9, pulse of 73, blood pressure is 120/79, respirations 20. O2 saturation 92%. GENERAL: The patient is lying in bed, flat, comfortable. HEENT: No oral lesion. Anicteric sclerae. Moist mucosa. NECK: No JVD, adenopathy, or thyromegaly. CARDIOVASCULAR: S1 and S2, regular. No murmurs, rubs, or gallops. LUNGS: Good bilateral air entry. There is mild wheezing. ABDOMEN: Bowel sounds are positive. Soft, nontender and nondistended. EXTREMITIES: No cyanosis, clubbing or edema. ASSESSMENT 1. Viral syndrome secondary to influenza, resolved. 2. Hematuria, resolved. 3. Diabetes type 2. 4. Dyslipidemia. 5. Hypertension. 6. Acute kidney injury, resolved. 7. Atrial fibrillation, not on anticoagulation. 8. Coronary artery disease. 9. History of bladder cancer. 10. Iron deficiency anemia. 11. Do not resuscitate/do not intubate. PLAN: The patient is currently on losartan. He is going to continue with aspirin. The patient is on folic acid and is on Januvia for his diabetes. He is on Lasix daily. He is on Lipitor for dyslipidemia. The patient is on Protonix. He is going to continue with physical therapy. Jamarcus Coats MD
--- NOTE | 2017-06-08 12:20 | CP.PCM.CON ---
History of Present Illness - History of Present Illness History of Present Illness: 87 year old male with PMH of CAD, chronic CHF, HTN, history of bronchitis, history of pneumonia, DM, history of bladder cancer, history of hepatitis C was initially brought in to [facility] ([facility] because of worsening cough and shortness of breath for the past 2-3 days. He was found to have Influenza and atypical pneumonia and had been on Tamiflu and Zithromax, completed 7 day course. He is now transferred to [facility] for continued medical therapy and physical rehab. Infectious Diseases consult is requested to re-evaluate if patient still needs therapy. Currently he has no fever, no abdominal pain, no better breathing, still with cough but better, no nausea or vomiting, no chest pain, no diarrhea, no dysuria, no sore throat. Review of Systems - Review of Systems All systems: reviewed and no additional remarkable complaints except (as per HPI ) Past Patient History - Infectious Disease Hx of Infectious Diseases: None - Tetanus Immunizations Tetanus Immunization: Unknown - Past Social History Smoking Status: Former Smoker - CARDIAC Hx Cardiac Disorders: (cad, denies mi) Hx Congestive Heart Failure: Yes Hx Hypertension: Yes - PULMONARY Hx Bronchitis: Yes (Chronic) Hx Pneumonia: Yes - NEUROLOGICAL Hx Neurological Disorder: No - HEENT Hx HEENT Problems: Yes (eyeglasses) - RENAL Other/Comment: Bladder Ca remission - ENDOCRINE/METABOLIC Hx Diabetes Mellitus Type 2: Yes - HEMATOLOGICAL/ONCOLOGICAL Hx Blood Disorders: Yes (sepsis) Hx Anemia: Yes (iron deficiency) Hx Cancer: Yes (bladder dx 10 yrs ago) Hx Chemotherapy: No Hx Hepatitis C: Yes - INTEGUMENTARY Hx Dermatological Problems: No - MUSCULOSKELETAL/RHEUMATOLOGICAL Hx Musculoskeletal Disorders: No Hx Falls: No - GASTROINTESTINAL Hx Gastrointestinal Disorders: No (colon polyps) - GENITOURINARY/GYNECOLOGICAL Hx Genitourinary Disorders: No - PSYCHIATRIC Hx Psychophysiologic Disorder: No - SURGICAL HISTORY Other/Comment: tooth extraction 3 months ago, cysto turbt x 3 or 4 - ANESTHESIA Hx Anesthesia Reactions: Yes (DIFF WAKING UP AFTER A PROCEDURE IN HOSPITAL) Hx Malignant Hyperthermia: No Meds Allergies/Adverse Reactions: Allergies Allergy/AdvReac Type Severity Reaction Status Date / Time codeine Allergy FATIGUE Verified 05/31/17 16:25 mushroom Allergy RASH Verified 05/31/17 16:25 vancomycin AdvReac RASH Verified 05/31/17 16:25 - Medications Medications: Current Medications Acetaminophen (Tylenol 325mg Tab) 650 mg PO Q6H PRN; Protocol PRN Reason: Fever >100.4 F Aspirin (Ecotrin) 81 mg PO 0800 [facility] PRN Reason: Protocol Last Admin: 06/08/17 08:35 Dose: 81 mg Atorvastatin Calcium (Lipitor) 10 mg PO DIN [facility] PRN Reason: Protocol Last Admin: 06/07/17 19:08 Dose: 10 mg Doxazosin Mesylate (Cardura) 4 mg PO DAILY [facility] PRN Reason: Protocol Folic Acid (Folic Acid) 1 mg PO DAILY [facility] PRN Reason: Protocol Furosemide (Lasix) 40 mg PO BID [facility] PRN Reason: Protocol Last Admin: 06/07/17 19:08 Dose: 40 mg Insulin Human Lispro (Humalog Med) 0 units SC ACHS [facility] PRN Reason: Protocol Last Admin: 06/08/17 06:47 Dose: 1 units Levalbuterol HCl (Xopenex) 1.25 mg IH TIDRESP [facility] PRN Reason: Protocol Last Admin: 06/08/17 08:51 Dose: 1.25 mg Levalbuterol HCl (Xopenex) 1.25 mg IH Q2H PRN; Protocol PRN Reason: Shortness of Breath Losartan Potassium (Cozaar) 50 mg PO DAILY [facility] PRN Reason: Protocol Mupirocin (Bactroban Ointment) 0 gm NS BID [facility] PRN Reason: Protocol Stop: 06/12/17 18:01 Nystatin (Nystop Topical Powder) 0 gm TOP Q12H [facility] PRN Reason: Protocol Last Admin: 06/08/17 05:29 Dose: 1 applic Pantoprazole Sodium (Protonix Ec Tab) 40 mg PO 0600 [facility] PRN Reason: Protocol Last Admin: 06/08/17 05:21 Dose: 40 mg Polyethylene Glycol (Miralax) 17 gm PO BID [facility] PRN Reason: Protocol Sitagliptin Phosphate (Januvia) 50 mg PO DAILY [facility] PRN Reason: Protocol Physical Exam - Constitutional Appears: Non-toxic, Chronically Ill - Head Exam Head Exam: NORMAL INSPECTION - ENT Exam ENT Exam: Mucous Membranes Moist - Neck Exam Neck exam: Negative for: Meningismus - Respiratory Exam Respiratory Exam: Decreased Breath Sounds - Cardiovascular Exam Cardiovascular Exam: +S1, +S2 - GI/Abdominal Exam GI & Abdominal Exam: Soft. absent: Tenderness Results - Vital Signs Recent Vital Signs: Last Vital Signs Temp 97.9 F 06/07/17 19:37 Pulse 89 06/07/17 21:53 Resp 20 06/07/17 19:37 BP 128/79 06/07/17 19:37 Pulse Ox Assessment & Plan - Assessment and Plan (Free Text) Plan: Assessment S/P Systemic Inflammatory Response Syndrome, S/P severe sepsis with acute renal failure due to systemic viral illness with Influenza, R/O community-acquired pneumonia, clinically improved and S/P treatment CAD chronic CHF HTN history of bronchitis history of pneumonia DM history of bladder cancer history of hepatitis C Plan continue to monitor off antibiotics since he is at risk for nosocomial infections
[2017-06-08] MEDS: POLYETHYLENE GLYCOL 3350 17 GM/Dose PACKET PO SCH ×2 (13:16→17:37)
[2017-06-09] MEDS: Nystatin 100,000 Units/gm Topical Pow(15 gm) TOP SCH ×2 (05:40→18:01)
[2017-06-09] MEDS: Pantoprazole 40 mg EC Tab PO SCH (05:40)
[2017-06-09] MEDS: Levalbuterol 1.25 MG/3 ML Inhal Soln UD IH SCH ×3 (07:25→21:02)
--- NOTE | 2017-06-09 07:47 | CP.PCM.PN ---
Subjective - Date & Time of Evaluation Date of Evaluation: 06/09/17 Time of Evaluation: 07:00 - Subjective Subjective: Stable on TCU now. Stll some orthopnea and congestion. No CP. V/S noted. PE: Lungs: rhonchi Cor.: irreg, S1S2 Abd.: soft Ext.: + edema Neuro.: alert Labs pedning CXR 2/: mild vasc. congestion. Objective - Vital Signs/Intake and Output Vital Signs (last 24 hours): Temp Pulse Resp BP Pulse Ox 97.5 F L 64 18 118/69 98 06/09/17 06:00 06/09/17 06:00 06/09/17 06:00 06/09/17 06:00 06/09/17 06:00 - Medications Medications: Current Medications Acetaminophen (Tylenol 325mg Tab) 650 mg PO Q6H PRN; Protocol PRN Reason: Fever >100.4 F Aspirin (Ecotrin) 81 mg PO 0800 FREDY PRN Reason: Protocol Last Admin: 06/08/17 08:35 Dose: 81 mg Atorvastatin Calcium (Lipitor) 10 mg PO DIN FREDY PRN Reason: Protocol Last Admin: 06/08/17 17:36 Dose: 10 mg Doxazosin Mesylate (Cardura) 4 mg PO DAILY FREDY PRN Reason: Protocol Last Admin: 06/08/17 13:13 Dose: 4 mg Folic Acid (Folic Acid) 1 mg PO DAILY FREDY PRN Reason: Protocol Last Admin: 06/08/17 13:14 Dose: 1 mg Furosemide (Lasix) 40 mg PO BID FREDY PRN Reason: Protocol Last Admin: 06/08/17 17:36 Dose: 40 mg Insulin Human Lispro (Humalog Med) 0 units SC ACHS FREDY PRN Reason: Protocol Last Admin: 06/08/17 22:05 Dose: Not Given Levalbuterol HCl (Xopenex) 1.25 mg IH TIDRESP FREDY PRN Reason: Protocol Last Admin: 06/09/17 07:25 Dose: 1.25 mg Levalbuterol HCl (Xopenex) 1.25 mg IH Q2H PRN; Protocol PRN Reason: Shortness of Breath Losartan Potassium (Cozaar) 50 mg PO DAILY FREDY PRN Reason: Protocol Last Admin: 06/08/17 13:14 Dose: 50 mg Metolazone (Zaroxolyn) 5 mg PO DAILY ONE Stop: 06/09/17 20:01 Mupirocin (Bactroban Ointment) 0 gm NS BID FREDY PRN Reason: Protocol Stop: 06/12/17 18:01 Last Admin: 06/08/17 17:32 Dose: 1 applic Nystatin (Nystop Topical Powder) 0 gm TOP Q12H FREDY PRN Reason: Protocol Last Admin: 06/09/17 05:40 Dose: 1 applic Pantoprazole Sodium (Protonix Ec Tab) 40 mg PO 0600 FREDY PRN Reason: Protocol Last Admin: 06/09/17 05:40 Dose: 40 mg Polyethylene Glycol (Miralax) 17 gm PO BID FREDY PRN Reason: Protocol Last Admin: 06/08/17 17:37 Dose: 17 gm Sitagliptin Phosphate (Januvia) 50 mg PO DAILY FREDY PRN Reason: Protocol Last Admin: 06/08/17 13:15 Dose: 50 mg Assessment and Plan - Assessment and Plan (Free Text) Assessment: Dyspnea/Cough/Congested NSTEMI CHF Influenza CAD/Old [place]/Remote PCI/Moderate LVD AF. No A/C b/o GIB and bleeding (recent, while on heparin drip) Moderate TR and PH on echo Diabetes COPD PN LBBB Bladder cancer Anemia Plan: AM labs pending. Continue BID PO Lasix Metolazone dose today noted As per ID and Dr. Pauly HART as gale/PT/Rehab efforts
[2017-06-09 08:00] LABS: BLOOD UREA NITROGEN 31 mg/dL (7-21); CALCIUM 9.4 mg/dL (8.4-10.5); GFR AFRICAN-AMERICAN > 60; GFR NON-AFRICAN AMERICAN > 60
--- NOTE | 2017-06-09 08:18 | PN ---
DATE: 06/09/2017 PULMONARY NOTE SUBJECTIVE: The patient appears comfortable this morning. He is not short of breath at rest. PHYSICAL EXAMINATION VITAL SIGNS: Temperature is 97.5, pulse 64, respirations 18, blood pressure 118/69. Oxygen saturation on nasal cannula is 98%. HEENT: Normocephalic, atraumatic. No JVD. CARDIOVASCULAR: Systolic ejection murmur at the lower left sternal border. Questionable S3 gallop. LUNGS: Mild crackles at the bases. Mild bilateral rhonchi. No wheezing. EXTREMITIES: Positive for edema. No cyanosis, no clubbing. Calves are nontender to palpation. GI: Abdomen is soft, nontender and nondistended. Bowel sounds are positive. SKIN: No acute rash. NEUROLOGIC: Limited at the present time. PERTINENT LABORATORY DATA: Chest x-ray was repeated yesterday and reviewed. There remains some mild vascular congestion and mild cardiomegaly. There is no evidence of pneumonia. IMPRESSION: 1. Acute congestive heart failure. 2. Chronic obstructive pulmonary disease. 3. Influenza A positivity. 4. Mild bronchospasm. 5. Coronary artery disease. 6. Status post pneumonia. PLAN: The patient appears comfortable this morning. He is not short of breath at rest. He states to feeling much better overall. On physical exam, there is no significant bronchospasm noted. In addition, there is no significant alveolar-arterial gradient. Oxygen saturation on nasal cannula is now 98%. I will continue the current nebulizer treatments for now. I would continue with the treatment for congestive heart failure as per Cardiology. Input by Dr. Beach is noted. The patient remains on Lasix/afterload reduction. Input by Infectious Disease is also noted. Clinical status of the patient is significantly improved. I will discuss the above with Dr. Coats. Brandon Camacho MD [facility]
[2017-06-09] MEDS: POLYETHYLENE GLYCOL 3350 17 GM/Dose PACKET PO SCH ×2 (09:22→18:00)
[2017-06-09] MEDS: Insulin Lispro (humaLOG) MEDIUM Coverage SC SCH ×3 (13:30→22:10)
[2017-06-09] MEDS ORDERED: metOLazone 5 MG TAB PO ONE (20:00)
[2017-06-10] MEDS: Pantoprazole 40 mg EC Tab PO SCH (05:15)
[2017-06-10] MEDS: Nystatin 100,000 Units/gm Topical Pow(15 gm) TOP SCH ×2 (06:54→18:20)
--- NOTE | 2017-06-10 07:21 | CP.PCM.PN ---
Subjective - Date & Time of Evaluation Date of Evaluation: 06/10/17 Time of Evaluation: 07:00 - Subjective Subjective: Stable on TCU now. No SOB. No CP. V/S noted. PE: Lungs: scattered rhonchi Cor.: irreg, S1S2 Abd.: soft Ext.: + edema Neuro.: alert Labs 06/09 noted CXR 06/08: mild vasc. congestion. Objective - Vital Signs/Intake and Output Vital Signs (last 24 hours): Temp Pulse Resp BP Pulse Ox 98.5 F 67 16 115/71 100 06/09/17 17:57 06/09/17 17:57 06/09/17 17:57 06/09/17 17:59 06/09/17 17:57 - Medications Medications: Current Medications Acetaminophen (Tylenol 325mg Tab) 650 mg PO Q6H PRN; Protocol PRN Reason: Fever >100.4 F Aspirin (Ecotrin) 81 mg PO 0800 FREDY PRN Reason: Protocol Last Admin: 06/09/17 09:20 Dose: 81 mg Atorvastatin Calcium (Lipitor) 10 mg PO DIN FREDY PRN Reason: Protocol Last Admin: 06/09/17 17:58 Dose: 10 mg Doxazosin Mesylate (Cardura) 4 mg PO DAILY FREDY PRN Reason: Protocol Last Admin: 06/09/17 09:18 Dose: 4 mg Folic Acid (Folic Acid) 1 mg PO DAILY FREDY PRN Reason: Protocol Last Admin: 06/09/17 09:20 Dose: 1 mg Furosemide (Lasix) 40 mg PO BID FREDY PRN Reason: Protocol Last Admin: 06/09/17 17:59 Dose: 40 mg Insulin Human Lispro (Humalog Med) 0 units SC ACHS FREDY PRN Reason: Protocol Last Admin: 06/09/17 22:10 Dose: Not Given Levalbuterol HCl (Xopenex) 1.25 mg IH TIDRESP FREDY PRN Reason: Protocol Last Admin: 06/09/17 21:02 Dose: 1.25 mg Levalbuterol HCl (Xopenex) 1.25 mg IH Q2H PRN; Protocol PRN Reason: Shortness of Breath Losartan Potassium (Cozaar) 50 mg PO DAILY FREDY PRN Reason: Protocol Last Admin: 06/09/17 09:19 Dose: 50 mg Mupirocin (Bactroban Ointment) 0 gm NS BID FREDY PRN Reason: Protocol Stop: 06/12/17 18:01 Last Admin: 06/09/17 17:54 Dose: 2 applic Nystatin (Nystop Topical Powder) 0 gm TOP Q12H FREDY PRN Reason: Protocol Last Admin: 06/10/17 06:54 Dose: 1 applic Pantoprazole Sodium (Protonix Ec Tab) 40 mg PO 0600 FREDY PRN Reason: Protocol Last Admin: 06/10/17 05:15 Dose: 40 mg Polyethylene Glycol (Miralax) 17 gm PO BID FREDY PRN Reason: Protocol Last Admin: 06/09/17 18:00 Dose: 17 gm Sitagliptin Phosphate (Januvia) 50 mg PO DAILY FREDY PRN Reason: Protocol Last Admin: 06/09/17 09:21 Dose: 50 mg - Labs Labs: 06/09/17 06:40 Assessment and Plan - Assessment and Plan (Free Text) Assessment: Dyspnea/Cough/Congested NSTEMI CHF Influenza CAD/Old [place]/Remote PCI/Moderate LVD AF. No A/C b/o GIB and bleeding (recent, while on heparin drip) Moderate TR and PH on echo Diabetes COPD PN LBBB Bladder cancer Anemia Plan: Continue BID PO Lasix As per ID, Pulm. and Dr. Pauly HART as gale/PT/Rehab efforts
[2017-06-10] MEDS: Levalbuterol 1.25 MG/3 ML Inhal Soln UD IH SCH ×3 (07:31→20:44)
[2017-06-10] MEDS: Insulin Lispro (humaLOG) MEDIUM Coverage SC SCH ×4 (07:36→22:02)
--- NOTE | 2017-06-10 08:39 | CON ---
DATE: 06/09/2017 CHIEF COMPLAINT: Shortness of breath. HISTORY OF PRESENT ILLNESS: The is an 87-year-old male who initially was seen on the acute care side. We were called as the patient was admitted with shortness of breath, influenza and respiratory distress. During his admission, Martinez catheter had been placed and the patient was having some hematuria. Patient is now seen on the Transitional Care Unit at [facility]. He has recovered from his respiratory issues and is feeling much better. Urologically, the Martinez catheter has been removed. The patient reports he is voiding without any difficulty. He reports a good force of urinary stream. He denies any current dysuria or gross hematuria. He does have mild frequency which he reports is chronic. He has no flank pain or history of renal colic. PAST MEDICAL HISTORY: Significant for hypertension, congestive heart failure, coronary artery disease, hepatitis C, history of bladder cancer, history of peptic ulcer disease with GI bleed, iron deficiency anemia. MEDICATIONS: Currently include Bactroban, Cardura, Cozaar, aspirin, folic acid, insulin, Januvia, Lasix, Lipitor, MiraLax, nystatin powder, Protonix, Tylenol, Xopenex and Zaroxolyn. ALLERGIES: ALLERGIC TO CODEINE, VANCOMYCIN. FAMILY HISTORY: Noncontributory. SOCIAL HISTORY: No current smoking or EtOH use. Positive for smoking in the past. REVIEW OF SYSTEMS: A 12-point review of systems was obtained. Positives for mild shortness of breath and cough. Positive for some joint pain and weakness, difficulty ambulating. Other systems are negative. PHYSICAL EXAMINATION: GENERAL: The patient is awake and alert. He is seen in his room. He is in no acute distress. He is sitting in bed and he has been ambulating by report. VITAL SIGNS: Afebrile, temperature 97.5, pulse of 64, BP 118/79, respirations 18. NECK: His neck is supple. There is no adenopathy. CHEST: Reveals a slightly increased inspiratory effort. CARDIAC: Shows positive S1, S2. There is mild peripheral edema noted. ABDOMEN: The abdomen is obese, soft, nontender, nondistended. There is no hepatosplenomegaly. There is no costovertebral angle tenderness. GENITOURINARY: Phallus is normal. Scrotum is normal. Testes bilaterally descended, nontender, no masses. Epididymides are normal. LABORATORY DATA: Urinalysis from June 05 showed 1-3 rbc's, 1-3 wbc's. Urinalysis from May 31 showed 0-2 rbc's, and from June 01 showed 5-10 rbc's. Urine culture showed 10,000-50,000 colonies of multiple species, likely contamination. Previously, most recent urine culture from May 31 showed no growth. On radiologic exam, the patient had a CT scan of the abdomen and pelvis from July. There is no more recent pertinent urologic imaging. CT scan from July 2015 showed unremarkable kidneys with no masses or hydronephrosis. Bladder was unremarkable. IMPRESSION AND PLAN: This is an 87-year-old male who is seen, recovering from respiratory distress from influenza and congestive heart failure. Urologically, patient reports he is voiding without difficulty. His urine is now clear. By the chart, he does have a history of bladder cancer and it is unclear when his last cystoscopy was. Plan now would be to have patient return home when he has fully recovered. Patient will need outpatient urologic followup regarding the hematuria and history of bladder cancer. I will need to check the office records to see when his last cystoscopy was, and if he is overdue, this will need to be scheduled. Thank you for allowing me to participate in the care of this patient. We will follow him with you. Prateek Reed MD
--- NOTE | 2017-06-10 09:55 | PN ---
DATE: 06/10/2017 PULMONARY NOTE SUBJECTIVE: The patient appears comfortable this morning. He is out of bed, sitting in the chair. He is not short of breath at rest. PHYSICAL EXAMINATION VITAL SIGNS: Temperature is 98.5, pulse 67, respirations 16, blood pressure 115/71. Oxygen saturation on nasal cannula is 100%. HEENT: Normocephalic, atraumatic. No JVD. CARDIOVASCULAR: Systolic ejection murmur at the lower left sternal border. Questionable S3 gallop. LUNGS: Minimal crackles at the bases. Minimal/less rhonchi. No wheezing. EXTREMITIES: Positive for mild edema. No cyanosis, no clubbing. Calves are nontender to palpation. GI: Abdomen is soft, nontender and nondistended. Bowel sounds are positive. SKIN: No acute rash. NEUROLOGIC: Limited at the present time. IMPRESSION: 1. Acute congestive heart failure. 2. Chronic obstructive pulmonary disease. 3. Influenza A positivity. 4. Mild bronchospasm. 5. Coronary artery disease. 6. Status post pneumonia. PLAN: The patient appears comfortable this morning. He is not short of breath at rest. He is out of bed, sitting in the chair. He does state to feeling much better overall. On physical exam, there is less bronchospasm noted. In addition, the oxygen saturation on nasal cannula is now 100%. I will continue the current nebulizer treatments for now. I would continue with the treatment for congestive heart failure as per Cardiology. Input by Dr. Beach is noted. The patient remains on Lasix/afterload reduction. Clinical status of the patient is certainly improved overall. I will discuss the above with Dr. Coats. Brandon Camacho MD K[facility]STA
[2017-06-10] MEDS: POLYETHYLENE GLYCOL 3350 17 GM/Dose PACKET PO SCH ×2 (10:17→18:20)
--- NOTE | 2017-06-10 12:22 | PN ---
DATE: 06/10/2017 SUBJECTIVE: The patient has no complaints of any chest pain, no shortness of breath, no headaches. PHYSICAL EXAMINATION: VITAL SIGNS: Temperature is 98.5, pulse is 67, blood pressure is and respirations 16. GENERAL: The patient is lying in bed, flat, comfortable. HEENT: No oral lesion. Anicteric sclerae. Moist mucosa. NECK: No JVD, adenopathy, or thyromegaly. CARDIOVASCULAR: S1 and S2, regular. No murmurs, rubs, or gallops. LUNGS: Clear to auscultation bilaterally. No wheeze, rales, or rhonchi. ABDOMEN: Bowel sounds are positive, soft, nontender and nondistended. EXTREMITIES: 1+ edema. DIAGNOSTIC DATA: Chest x-ray done shows no cardiomegaly, . ASSESSMENT: 1. Viral syndrome secondary to influenza, resolved. 2. Lower extremity edema. 3. Diabetes type 2. 4. Hematuria, resolved. 5. Dyslipidemia. 6. Hypertension. 7. Acute kidney injury, resolved. 8. Atrial fibrillation, on anticoagulation . 9. Coronary artery disease. 10. History of bladder cancer. 11. Iron deficiency anemia. 12. Do not resuscitate/do not intubate. PLAN: The patient is . He is getting physical therapy. He is on diuretic therapy for his edema. He was given a dose of . The patient is on doxazosin for his prostate. He is on aspirin. He is going to continue with Januvia for his diabetes. He is receiving Lipitor for dyslipidemia. He is on oxygen. He is on carbohydrate consistent diet. Jamarcus Coats MD
[2017-06-10] MEDS: Levalbuterol 1.25 MG/3 ML Inhal Soln UD IH PRN ×2 (18:42→23:56)
[2017-06-11] MEDS: Nystatin 100,000 Units/gm Topical Pow(15 gm) TOP SCH ×2 (06:07→17:36)
[2017-06-11] MEDS: Pantoprazole 40 mg EC Tab PO SCH (06:08)
[2017-06-11] MEDS: Insulin Lispro (humaLOG) MEDIUM Coverage SC SCH ×4 (06:36→22:10)
--- NOTE | 2017-06-11 07:45 | CP.PCM.PN ---
Subjective - Date & Time of Evaluation Date of Evaluation: 06/11/17 Time of Evaluation: 07:00 - Subjective Subjective: Stable on TCU now. No SOB. No CP. He feels better. + Ambulations V/S noted. PE: Lungs: few rhonchi Cor.: irreg, S1S2 Abd.: soft Ext.: mild edema Neuro.: alert Labs 06/09 noted CXR 06/08: mild vasc. congestion. Objective - Vital Signs/Intake and Output Vital Signs (last 24 hours): Temp Pulse Resp BP Pulse Ox 97.8 F 72 20 113/70 96 06/10/17 17:38 06/10/17 17:38 06/10/17 17:38 06/10/17 18:19 06/10/17 17:38 Intake and Output: 06/11/17 06/11/17 06:59 18:59 Output Total 1000 Balance -1000 - Medications Medications: Current Medications Acetaminophen (Tylenol 325mg Tab) 650 mg PO Q6H PRN; Protocol PRN Reason: Fever >100.4 F Aspirin (Ecotrin) 81 mg PO 0800 FREDY PRN Reason: Protocol Last Admin: 06/10/17 08:52 Dose: 81 mg Atorvastatin Calcium (Lipitor) 10 mg PO DIN FREDY PRN Reason: Protocol Last Admin: 06/10/17 18:20 Dose: 10 mg Doxazosin Mesylate (Cardura) 4 mg PO DAILY FREDY PRN Reason: Protocol Last Admin: 06/10/17 10:16 Dose: 4 mg Folic Acid (Folic Acid) 1 mg PO DAILY FREDY PRN Reason: Protocol Last Admin: 06/10/17 10:17 Dose: 1 mg Furosemide (Lasix) 40 mg PO BID FREDY PRN Reason: Protocol Last Admin: 06/10/17 18:19 Dose: 40 mg Insulin Human Lispro (Humalog Med) 0 units SC ACHS FREDY PRN Reason: Protocol Last Admin: 06/11/17 06:36 Dose: 1 units Levalbuterol HCl (Xopenex) 1.25 mg IH TIDRESP FREDY PRN Reason: Protocol Last Admin: 06/10/17 20:44 Dose: Not Given Levalbuterol HCl (Xopenex) 1.25 mg IH Q2H PRN; Protocol PRN Reason: Shortness of Breath Last Admin: 02/07/18 23:56 Dose: 1.25 mg Losartan Potassium (Cozaar) 50 mg PO DAILY FREDY PRN Reason: Protocol Last Admin: 06/10/17 10:16 Dose: 50 mg Mupirocin (Bactroban Ointment) 0 gm NS BID FREDY PRN Reason: Protocol Stop: 06/12/17 18:01 Last Admin: 06/10/17 18:18 Dose: 1 applic Nystatin (Nystop Topical Powder) 0 gm TOP Q12H FREDY PRN Reason: Protocol Last Admin: 06/11/17 06:07 Dose: 1 applic Pantoprazole Sodium (Protonix Ec Tab) 40 mg PO 0600 FREDY PRN Reason: Protocol Last Admin: 06/11/17 06:08 Dose: 40 mg Polyethylene Glycol (Miralax) 17 gm PO BID FREDY PRN Reason: Protocol Last Admin: 06/10/17 18:20 Dose: 17 gm Sitagliptin Phosphate (Januvia) 50 mg PO DAILY FREDY PRN Reason: Protocol Last Admin: 06/10/17 10:17 Dose: 50 mg - Labs Labs: 06/09/17 06:40 Assessment and Plan - Assessment and Plan (Free Text) Assessment: Dyspnea/Cough/Congested NSTEMI CHF Influenza CAD/Old [place]/Remote PCI/Moderate LVD AF. No A/C b/o GIB and bleeding (recent, while on heparin drip) Moderate TR and PH on echo Diabetes COPD PN LBBB Bladder cancer Anemia Plan: Continue BID PO Lasix Check BMP in AM As per ID, Pulm. and Dr. Pauly HART as gale/PT/Rehab efforts
[2017-06-11] MEDS: Levalbuterol 1.25 MG/3 ML Inhal Soln UD IH SCH ×3 (08:31→21:09)
--- NOTE | 2017-06-11 08:46 | PN ---
DATE: 06/11/2017 PULMONARY NOTE SUBJECTIVE: The patient appears comfortable this morning. He is not short of breath at rest. He is out of bed, sitting in the chair. PHYSICAL EXAMINATION: VITAL SIGNS (LAST NOTED IN THE COMPUTER): Temperature 97.8, pulse 72, respirations 18, blood pressure 113/70. Oxygen saturation on nasal cannula is 96-100%. HEENT: Normocephalic, atraumatic. No JVD. CARDIOVASCULAR: Systolic ejection murmur at the lower left sternal border. Questionable S3 gallop. LUNGS: Minimal crackles at the bases. Very minimal/less rhonchi. No wheezing. EXTREMITIES: Less edema. No cyanosis. No clubbing. Calves are nontender to palpation. GI: Abdomen is soft, nontender and nondistended. Bowel sounds are positive. SKIN: No acute rash. NEUROLOGIC: Limited at the present time. IMPRESSION: 1. Acute congestive heart failure. 2. Chronic obstructive pulmonary disease. 3. Influenza A positivity. 4. Mild bronchospasm. 5. Coronary artery disease. 6. Status post pneumonia. PLAN: The patient appears comfortable this morning. He is out of bed, sitting in the chair. He is not short of breath at rest. He does state to feeling much better overall. On physical exam, his bronchospasm continues to slowly resolve. In addition, there is no significant alveolar-arterial gradient. I will continue with the current nebulizer treatments for now. The patient remains on Lasix. Input by Cardiology is noted. Clinical status of the patient is significantly improved - but does remain guarded overall. I will discuss the above the attending physician. Brandon Camacho MD MTDD
[2017-06-11] MEDS: POLYETHYLENE GLYCOL 3350 17 GM/Dose PACKET PO SCH ×3 (10:07→17:40)
--- NOTE | 2017-06-11 23:06 | PN ---
DATE: 06/11/2017 SUBJECTIVE: The patient has no complaints of any chest pain or any shortness of breath. No headaches or dizziness. PHYSICAL EXAMINATION: VITAL SIGNS: Temperature is 97.7, pulse is 65, blood pressure is 118/63, respirations 20. GENERAL: The patient is lying in bed, flat, comfortable. HEENT: No oral lesion. Anicteric sclerae. Moist mucosa. NECK: No JVD, adenopathy, or thyromegaly. CARDIOVASCULAR: S1 and S2, regular. No murmurs, rubs, or gallops. LUNGS: Clear to auscultation bilaterally. No wheeze, rales, or rhonchi. ABDOMEN: Bowel sounds are positive, soft, nontender and nondistended. EXTREMITIES: Lower extremities, 1+ edema. ASSESSMENT: 1. Viral syndrome secondary to influenza. 2. Lower extremity edema. 3. Diabetes type 2. 4. Hematuria, resolved. 5. Dyslipidemia. 6. Hypertension. 7. Acute kidney injury, resolved. 8. Atrial fibrillation, on anticoagulation. 9. Coronary artery disease. 10. History of bladder cancer. 11. Iron deficiency. 12. Do not resuscitate/do not intubate. PLAN: The patient is currently comfortable. The patient is on Losartan for hypertension. He is on aspirin daily. The patient is going to continue with the Januvia for diabetes. The patient is on Lasix daily. The patient is on Lipitor for dyslipidemia. He has less swelling in the feet. He is on Protonix. He is doing well with physical therapy and ambulating. We will repeat the patient's chemistry tomorrow. Jamarcus Coats MD
[2017-06-12] MEDS: Levalbuterol 1.25 MG/3 ML Inhal Soln UD IH PRN (02:21)
[2017-06-12] MEDS: Insulin Lispro (humaLOG) MEDIUM Coverage SC SCH ×5 (06:34→21:48)
[2017-06-12] MEDS: Pantoprazole 40 mg EC Tab PO SCH (06:35)
[2017-06-12] MEDS: Nystatin 100,000 Units/gm Topical Pow(15 gm) TOP SCH ×2 (06:35→17:55)
[2017-06-12 07:22] LABS: BLOOD UREA NITROGEN 23 mg/dL (7-21); CALCIUM 9.7 mg/dL (8.4-10.5); GFR AFRICAN-AMERICAN > 60; GFR NON-AFRICAN AMERICAN 57; MAGNESIUM 1.8 mg/dL (1.7-2.2)
[2017-06-12] MEDS: Levalbuterol 1.25 MG/3 ML Inhal Soln UD IH SCH ×3 (07:27→21:13)
--- NOTE | 2017-06-12 08:00 | CP.PCM.PN ---
Subjective - Date & Time of Evaluation Date of Evaluation: 06/12/17 Time of Evaluation: 07:00 - Subjective Subjective: Stable on TCU now. No SOB. No CP. He feels better. + Ambulations V/S noted. PE: Lungs: few rhonchi Cor.: irreg, S1S2 Abd.: soft Ext.: mild edema Neuro.: alert Labs today noted CXR 2/5: mild vasc. congestion. Objective - Vital Signs/Intake and Output Vital Signs (last 24 hours): Temp Pulse Resp BP Pulse Ox 97.7 F 65 20 108/60 97 06/11/17 16:29 06/11/17 16:29 06/11/17 16:29 06/11/17 17:38 06/11/17 16:29 Intake and Output: 06/12/17 06/12/17 06:59 18:59 Intake Total 240 Output Total 900 Balance -660 - Medications Medications: Current Medications Acetaminophen (Tylenol 325mg Tab) 650 mg PO Q6H PRN; Protocol PRN Reason: Fever >100.4 F Aspirin (Ecotrin) 81 mg PO 0800 FREDY PRN Reason: Protocol Last Admin: 06/11/17 08:25 Dose: 81 mg Atorvastatin Calcium (Lipitor) 10 mg PO DIN FREDY PRN Reason: Protocol Last Admin: 06/11/17 17:38 Dose: 10 mg Doxazosin Mesylate (Cardura) 4 mg PO DAILY FREDY PRN Reason: Protocol Last Admin: 06/11/17 10:04 Dose: 4 mg Folic Acid (Folic Acid) 1 mg PO DAILY FREDY PRN Reason: Protocol Last Admin: 06/11/17 10:04 Dose: 1 mg Furosemide (Lasix) 40 mg PO BID FREDY PRN Reason: Protocol Last Admin: 06/11/17 17:38 Dose: 40 mg Insulin Human Lispro (Humalog Med) 0 units SC ACHS FREDY PRN Reason: Protocol Last Admin: 06/12/17 06:34 Dose: 3 units Levalbuterol HCl (Xopenex) 1.25 mg IH TIDRESP FREDY PRN Reason: Protocol Last Admin: 06/12/17 07:27 Dose: 1.25 mg Levalbuterol HCl (Xopenex) 1.25 mg IH Q2H PRN; Protocol PRN Reason: Shortness of Breath Last Admin: 06/12/17 02:21 Dose: 1.25 mg Losartan Potassium (Cozaar) 50 mg PO DAILY FREDY PRN Reason: Protocol Last Admin: 06/11/17 10:05 Dose: 50 mg Mupirocin (Bactroban Ointment) 0 gm NS BID FREDY PRN Reason: Protocol Stop: 06/12/17 18:01 Last Admin: 06/11/17 17:36 Dose: 1 applic Nystatin (Nystop Topical Powder) 0 gm TOP Q12H FREDY PRN Reason: Protocol Last Admin: 06/12/17 06:35 Dose: 1 applic Pantoprazole Sodium (Protonix Ec Tab) 40 mg PO 0600 FREDY PRN Reason: Protocol Last Admin: 06/12/17 06:35 Dose: 40 mg Polyethylene Glycol (Miralax) 17 gm PO BID FREDY PRN Reason: Protocol Last Admin: 06/11/17 17:40 Dose: 17 gm Sitagliptin Phosphate (Januvia) 50 mg PO DAILY FREDY PRN Reason: Protocol Last Admin: 06/11/17 10:06 Dose: 50 mg - Labs Labs: 06/12/17 05:30 Assessment and Plan - Assessment and Plan (Free Text) Assessment: Dyspnea/Cough/Congested NSTEMI CHF Influenza CAD/Old [place]/Remote PCI/Moderate LVD AF. No A/C b/o GIB and bleeding (recent, while on heparin drip) Moderate TR and PH on echo Diabetes COPD PN LBBB Bladder cancer Anemia Plan: Continue BID PO Lasix As per ID, Pulm. and Dr. Pauly HART as gale/PT/Rehab efforts
--- NOTE | 2017-06-12 08:54 | PN ---
DATE: 06/12/2017 PULMONARY NOTE SUBJECTIVE: The patient appears comfortable this morning. He is out of bed, sitting in the chair. He is not short of breath at rest. PHYSICAL EXAMINATION VITAL SIGNS: Temperature is 97.7, pulse 65, respirations 18/20, blood pressure 108/60. Oxygen saturation on nasal cannula is 97%. HEENT: Normocephalic, atraumatic. No JVD. CARDIOVASCULAR: Systolic ejection murmur at the lower left sternal border. Questionable S3 gallop. LUNGS: Minimal crackles at the bases. Very minimal rhonchi. No wheezing. EXTREMITIES: Much less edema. No cyanosis, no clubbing. Calves are nontender to palpation. GI: Abdomen is soft, nontender, nondistended. Bowel sounds are positive. SKIN: No acute rash. NEUROLOGIC: Limited at the present time. IMPRESSION: 1. Acute congestive heart failure. 2. Chronic obstructive pulmonary disease. 3. Influenza A positivity. 4. Mild bronchospasm. 5. Coronary artery disease. 6. Status post pneumonia. PLAN: The patient appears comfortable this morning. He is out of bed, sitting in the chair. He is not short of breath at rest. He does state to feeling much better overall. On physical exam, there is no significant bronchospasm noted. In addition, there is no significant alveolar-arterial gradient. I will continue the current nebulizer treatments for now. I would continue with the treatment for congestive heart failure as per Cardiology. The patient remains on Lasix/afterload reduction. Clinical status of the patient is certainly improved - compared to the initial presentation. However, again, the future status/prognosis does remain very guarded. I will discuss the above with Dr. Coats. Brandon Camacho MD KRISTA
[2017-06-12] MEDS: POLYETHYLENE GLYCOL 3350 17 GM/Dose PACKET PO SCH ×2 (10:14→17:55)
--- NOTE | 2017-06-12 17:55 | CP.PCM.PN ---
Subjective - Date & Time of Evaluation Date of Evaluation: 06/12/17 Time of Evaluation: 11:05 - Subjective Subjective: Breathing ok, no fevers. Objective - Vital Signs/Intake and Output Vital Signs (last 24 hours): Temp Pulse Resp BP Pulse Ox 97.7 F 65 20 108/60 97 06/11/17 16:29 06/11/17 16:29 06/11/17 16:29 06/11/17 17:38 06/11/17 16:29 Intake and Output: 06/12/17 06/12/17 06:59 18:59 Intake Total 240 Output Total 900 Balance -660 - Medications Medications: Current Medications Acetaminophen (Tylenol 325mg Tab) 650 mg PO Q6H PRN; Protocol PRN Reason: Fever >100.4 F Aspirin (Ecotrin) 81 mg PO 0800 FREDY PRN Reason: Protocol Last Admin: 06/12/17 08:02 Dose: 81 mg Atorvastatin Calcium (Lipitor) 10 mg PO DIN FREDY PRN Reason: Protocol Last Admin: 06/11/17 17:38 Dose: 10 mg Doxazosin Mesylate (Cardura) 4 mg PO DAILY FREDY PRN Reason: Protocol Last Admin: 06/11/17 10:04 Dose: 4 mg Folic Acid (Folic Acid) 1 mg PO DAILY FREDY PRN Reason: Protocol Last Admin: 06/11/17 10:04 Dose: 1 mg Furosemide (Lasix) 40 mg PO BID FREDY PRN Reason: Protocol Last Admin: 06/11/17 17:38 Dose: 40 mg Insulin Human Lispro (Humalog Med) 0 units SC ACHS FREDY PRN Reason: Protocol Last Admin: 06/12/17 06:34 Dose: 3 units Levalbuterol HCl (Xopenex) 1.25 mg IH TIDRESP FREDY PRN Reason: Protocol Last Admin: 06/12/17 07:27 Dose: 1.25 mg Levalbuterol HCl (Xopenex) 1.25 mg IH Q2H PRN; Protocol PRN Reason: Shortness of Breath Last Admin: 06/12/17 02:21 Dose: 1.25 mg Losartan Potassium (Cozaar) 50 mg PO DAILY FREDY PRN Reason: Protocol Last Admin: 06/11/17 10:05 Dose: 50 mg Mupirocin (Bactroban Ointment) 0 gm NS BID FREDY PRN Reason: Protocol Stop: 06/12/17 18:01 Last Admin: 06/11/17 17:36 Dose: 1 applic Nystatin (Nystop Topical Powder) 0 gm TOP Q12H FREDY PRN Reason: Protocol Last Admin: 06/12/17 06:35 Dose: 1 applic Pantoprazole Sodium (Protonix Ec Tab) 40 mg PO 0600 FREDY PRN Reason: Protocol Last Admin: 06/12/17 06:35 Dose: 40 mg Polyethylene Glycol (Miralax) 17 gm PO BID FREDY PRN Reason: Protocol Last Admin: 06/11/17 17:40 Dose: 17 gm Sitagliptin Phosphate (Januvia) 50 mg PO DAILY FREDY PRN Reason: Protocol Last Admin: 06/11/17 10:06 Dose: 50 mg - Labs Labs: 06/12/17 05:30 - Constitutional Appears: Chronically Ill - Head Exam Head Exam: NORMAL INSPECTION - Respiratory Exam Respiratory Exam: Decreased Breath Sounds - Cardiovascular Exam Cardiovascular Exam: +S1, +S2 - GI/Abdominal Exam GI & Abdominal Exam: Soft. absent: Tenderness Assessment and Plan - Assessment and Plan (Free Text) Plan: Assessment S/P Systemic Inflammatory Response Syndrome, S/P severe sepsis with acute renal failure due to systemic viral illness with Influenza, R/O community-acquired pneumonia, clinically improved and S/P treatment CAD chronic CHF HTN history of bronchitis history of pneumonia DM history of bladder cancer history of hepatitis C Plan continue to monitor off antibiotics since he is at risk for hospital-acquired infections
[2017-06-13] MEDS: Levalbuterol 1.25 MG/3 ML Inhal Soln UD IH PRN (01:30)
[2017-06-13] MEDS: Pantoprazole 40 mg EC Tab PO SCH (05:38)
[2017-06-13] MEDS: Nystatin 100,000 Units/gm Topical Pow(15 gm) TOP SCH ×2 (05:38→17:37)
[2017-06-13] MEDS: Insulin Lispro (humaLOG) MEDIUM Coverage SC SCH ×4 (06:35→21:24)
[2017-06-13 06:54] VITALS: RESP 18
[2017-06-13] MEDS: Levalbuterol 1.25 MG/3 ML Inhal Soln UD IH SCH ×4 (07:17→23:29)
[2017-06-13] MEDS: POLYETHYLENE GLYCOL 3350 17 GM/Dose PACKET PO SCH ×2 (10:18→17:36)
--- NOTE | 2017-06-13 11:33 | PN ---
DATE: 06/13/2017 SUBJECTIVE: The patient is seen lying in bed, in the Transitional Care Unit. He is comfortable at present. His dyspnea has improved. His current medications remain Cardura, Cozaar 50 mg daily Ecotrin, folic acid, insulin, Januvia, Lasix 40 mg b.i.d., Lipitor 10 mg daily, Protonix, and Xopenex. OBJECTIVE GENERAL: He is a very elderly man who appears comfortable at rest. VITAL SIGNS: His blood pressure is 136/80 with a pulse of 60, respirations are 16. He is afebrile. HEENT: No JVD. CHEST: Bilateral scattered rhonchi heard. HEART: PMI displaced laterally with systolic murmur in the left sternal border. ABDOMEN: Soft, nontender with normoactive bowel sounds. EXTREMITIES: No edema. DIAGNOSTIC DATA Blood work is pending. IMPRESSION 1. Recent bronchitis. 2. Qws-DA-grrfadh elevation myocardial fraction, clinically stable. 3. Chylm-uq-hqjdorv congestive heart failure, combined systolic and diastolic, clinically improved. 4. Remote myocardial infarction. 5. Prior gastrointestinal bleeding and genitourinary bleeding. 6. Atrial fibrillation, not currently on anticoagulation because of the above. 7. Rest of the problems as noted. RECOMMENDATIONS Current medications, should continue for now. From a cardiac standpoint, he appears fairly stable for discharge home soon. Outpatient followup will be arranged. We will follow along as needed. Juan David Vincent MD
[2017-06-13 14:50] VITALS: TEMP 97.9
[2017-06-13 16:05] VITALS: O2SAT 97
--- NOTE | 2017-06-13 17:10 | PN ---
DATE: 06/13/2017 PULMONARY PROGRESS NOTE SUBJECTIVE: The patient was seen and examined on Transitional Care Unit. He is complaining of cough. His shortness of breath has diminished greatly. PHYSICAL EXAMINATION: HEENT: Head, ears, nose, and throat are within normal limits. NECK: Supple with no jugular vein distention. No adenopathy. CARDIOVASCULAR: S1 and S2. No S3. Regular. PULMONARY: Diminished breath sounds at both lung bases with no wheezing. GASTROINTESTINAL: Soft and nontender with no organomegaly. : Within normal limits EXTREMITIES: No edema. NEUROLOGIC: No memory loss SKIN: No rashes LABORATORY DATA: There is no new laboratory reports to review. ASSESSMENT: 1. Acute congestive heart failure. 2. Chronic obstructive pulmonary disease. 3. Influenza A positivity. 4. Mild bronchospasm. PLAN: The patient is improving. He is afebrile. Pulmonary exam, there is no significant bronchospasm. We will continue with nebulizer treatment and cardiac care as per Cardiology. Hilario Mora MD MTDD
[2017-06-14] MEDS: Pantoprazole 40 mg EC Tab PO SCH (05:31)
[2017-06-14] MEDS: Nystatin 100,000 Units/gm Topical Pow(15 gm) TOP SCH (05:31)
[2017-06-14] MEDS: Levalbuterol 1.25 MG/3 ML Inhal Soln UD IH PRN (06:00)
[2017-06-14] MEDS: Insulin Lispro (humaLOG) MEDIUM Coverage SC SCH (06:52)
[2017-06-14] MEDS: Levalbuterol 1.25 MG/3 ML Inhal Soln UD IH SCH (07:30)
[2017-06-14] MEDS: POLYETHYLENE GLYCOL 3350 17 GM/Dose PACKET PO SCH (09:29)
[2017-06-14 09:31] VITALS: BP 116/79; PULSE 71
--- NOTE | 2017-06-14 13:49 | PN ---
DATE: 06/14/2017 SUBJECTIVE: The patient is seen earlier this morning in no acute distress, now in the Transitional Care Unit, Room 320. OBJECTIVE GENERAL: Awake and alert. VITAL SIGNS: On exam, temperature is 97, blood pressure is 116/70, respiratory rate of 16. HEENT: Examination is unremarkable. NECK: Supple. LUNGS: Have decreased breath sounds. HEART: Normal S1, S2. ABDOMEN: Soft, nontender. LABORATORY EXAMINATION: Reviewed. ASSESSMENT AND PLAN: This is an 87-year-old male with systemic inflammatory response syndrome, status post severe sepsis, acute renal failure due to systemic viral illness and influenza, currently off of antibiotics, afebrile, possibly discharge today. We will follow closely with you as outpatient Lalito Willis MD
--- NOTE | 2017-06-15 09:08 | PN ---
DATE: 06/13/2017 SUBJECTIVE: Patient is in bed, in no acute distress. PHYSICAL EXAMINATION VITAL SIGNS: Temperature is 97, blood pressure is 120/80, respiratory rate is 18, heart rate of 100. HEENT: Unremarkable. NECK: Supple. LUNGS: Have decreased breath sounds. HEART: Normal S1 and S2. ABDOMEN: Soft, nontender. LABORATORY EXAMINATION: Reviewed. ASSESSMENT AND PLAN: This is an 87-year-old male who was seen early this morning in the transitional care with systemic inflammatory response syndrome, status post severe sepsis, acute renal failure due to systemic viral illness with influenza, community-acquired pneumonia, currently now off of antibiotics, afebrile. Patient is at risk for developing nosocomial infections. Lalito Willis MD
--- NOTE | 2017-06-15 09:52 | PN ---
HISTORY OF PRESENT ILLNESS: The patient has no complaints of any chest pain or shortness of breath. No headaches. He has been in the transitional care unit for rehab. He is doing fairly well. PHYSICAL EXAMINATION: VITAL SIGNS: Temperature is 97.8, pulse is 73, blood pressure 132/60, O2 saturation 95%. GENERAL: The patient is lying in bed, flat, comfortable. HEENT: No oral lesion. Anicteric sclerae. Moist mucosa. NECK: No JVD, adenopathy, or thyromegaly. CARDIOVASCULAR: S1 and S2, regular. No murmurs, rubs, or gallops. LUNGS: Clear to auscultation bilaterally. No wheeze, rales, or rhonchi. ABDOMEN: Bowel sounds are positive, soft, nontender and nondistended. EXTREMITIES: Right lower extremity, trace edema. ASSESSMENT: 1. Viral syndrome secondary to influenza. 2. Lower extremity edema. 3. Diabetes type 2. 4. Hematuria, resolved. 5. Dyslipidemia. 6. Hypertension. 7. Acute kidney injury, resolved. 8. Atrial fibrillation, on anticoagulation. 9. Coronary artery disease. 10. History of bladder cancer. 11. Iron deficiency. 12. Do not resuscitate/do not intubate. PLAN: The patient is on Losartan for his blood pressure. He is going to continue with aspirin. The patient is on Januvia for his diabetes. He is on Lasix twice a day. His edema is improved. The patient is on Lipitor for dyslipidemia. He is on MiraLax for constipation. He is not on anticoagulation because of increased risk of complications. CONDITION: Stable. ACTIVITIES: Increase as tolerated. FOLLOWUP: Outpatient with primary care doctor in 1 to 2 weeks. Jamarcus Coats MD
== END 2017-06-14 10:17 | disposition home or self-care (01) | DRG 193 ==
LOC: TRCU 17:05
PROVIDERS: ADMIT Internal Medicine Nephrology; ATTEND Internal Medicine Nephrology
PROC: 3E0F7GC Introduction of Other Therapeutic Substance into Respiratory Tract, Via Natural or Artificial Opening (ICD-10-PCS; 2017-06-07)
PROC: F07Z9FZ Gait Training/Functional Ambulation Treatment using Assistive, Adaptive, Supportive or Protective Equipment (ICD-10-PCS; principal; 2017-06-08)
PROC: F08Z4FZ Home Management Treatment using Assistive, Adaptive, Supportive or Protective Equipment (ICD-10-PCS; 2017-06-08)
DX: J10.1 Influenza due to other identified influenza virus with other respiratory manifestations (principal); I21.4 Non-ST elevation (NSTEMI) myocardial infarction; I50.43 Acute on chronic combined systolic (congestive) and diastolic (congestive) heart failure; J44.0 Chronic obstructive pulmonary disease with (acute) lower respiratory infection; I48.91 Unspecified atrial fibrillation; D50.9 Iron deficiency anemia, unspecified; E11.9 Type 2 diabetes mellitus without complications; B19.20 Unspecified viral hepatitis C without hepatic coma; I11.0 Hypertensive heart disease with heart failure; I25.10 Atherosclerotic heart disease of native coronary artery without angina pectoris; Z66 Do not resuscitate; I44.7 Left bundle-branch block, unspecified; E78.5 Hyperlipidemia, unspecified; J98.01 Acute bronchospasm; K59.00 Constipation, unspecified; I25.2 Old myocardial infarction; Z87.01 Personal history of pneumonia (recurrent); Z85.51 Personal history of malignant neoplasm of bladder; Z87.891 Personal history of nicotine dependence

== ENCOUNTER 2018-05-31 10:31 | Inpatient (IN) | payer MEDICARE, BC ==
[2018-05-31 10:41] VITALS: BMI 33.0
--- NOTE | 2018-05-31 11:07 | ED PDOC ---
Arrival/HPI - General Historian: Patient - History of Present Illness Narrative History of Present Illness (Text): Patient is a 88 yr old M with PMH of Hepatitis C, HTN, CHF, DM, BPH, CAD prior MS who was sent to [facility] [place]. Monreal after being found to have slurred speech x4 days and newly diagnosed atrial fibrillation. Patient and family state that he has had slurred abnormal speech x 4 days and a slight left sided facial droop. patient also reports temperture fluctuatons in which he has been feeling hot and cold. He denies any extremity weakness or falls and family states that he has had a normal gait. Additionally he has had increased abdominal distention over the past few days with pain/ discomfort in his lower abdomen. he otherwise denies GUDINO, Dizziness, vision changes, body aches, CP, SOB, cough, extremity weakness/numbness, n/v, dysuria, stool changes, diarrhea and extremity pain. 05/31/18 11:08 Time/Duration: Prior to Arrival, < week (4 days) Symptom Onset: Gradual Symptom Course: Unchanged Quality: Fullness Severity Level: 7 <Melinda Smith - Last Filed: 05/31/18 13:45> <Eliceo Georges DO - Last Filed: 05/31/18 16:12> - General Chief Complaint: Weakness/Neurological Deficit Past Medical History - Provider Review Nursing Documentation Reviewed: Yes - Past History Past History: No Previous - Infectious Disease Hx of Infectious Diseases: None - Tetanus Immunization Tetanus Immunization: Unknown - Cardiac Hx Cardiac Disorders: Yes Hx Congestive Heart Failure: Yes Hx Hypertension: Yes - Pulmonary Hx Bronchitis: Yes (Chronic) Hx Pneumonia: Yes - Neurological Hx Neurological Disorder: No - HEENT Hx HEENT Disorder: Yes (eyeglasses) - Renal Other/Comment: Bladder Ca remission - Endocrine/Metabolic Hx Diabetes Mellitus Type 2: Yes - Hematological/Oncological Hx Blood Disorders: Yes (sepsis) Hx Anemia: Yes (iron deficiency) Hx Cancer: Yes (bladder dx 10 yrs ago) Hx Chemotherapy: No Hx Hepatitis C: Yes - Integumentary Hx Dermatological Disorder: No - Musculoskeletal/Rheumatological Hx Musculoskeletal Disorders: No Hx Falls: No - Gastrointestinal Hx Gastrointestinal Disorders: No (colon polyps) - Genitourinary/Gynecological Hx Genitourinary Disorders: No - Psychiatric Hx Psychophysiologic Disorder: No Hx Substance Use: No - Past Surgical History Past Surgical History: Non-Contributing - Surgical History Other/Comment: tooth extraction 3 months ago, cysto turbt x 3 or 4 - Anesthesia Hx Anesthesia: Yes Hx Anesthesia Reactions: Yes (DIFF WAKING UP AFTER A PROCEDURE IN HOSPITAL) Hx Malignant Hyperthermia: No - Suicidal Assessment Feels Threatened In Home Enviroment: No <Melinda Smith - Last Filed: 05/31/18 13:45> Family/Social History - Physician Review Nursing Documentation Reviewed: Yes Family/Social History: Unknown Family HX Smoking Status: Former Smoker Hx Alcohol Use: Yes (occ wine) Hx Substance Use: No Hx Substance Use Treatment: No <Melinda Smith - Last Filed: 05/31/18 13:45> Allergies/Home Meds <Melinda Smith - Last Filed: 05/31/18 13:45> <Eliceo Georges DO - Last Filed: 05/31/18 16:12> Allergies/Adverse Reactions: Allergies codeine Allergy (Verified 06/08/17 20:30) FATIGUE mushroom Allergy (Verified 06/08/17 20:30) RASH vancomycin Adverse Reaction (Verified 06/08/17 20:30) RASH Home Medications: Home Meds Medication Instructions Recorded Confirmed Aspirin [Ecotrin] 81 mg PO DAILY 07/21/15 05/31/18 SITagliptin [Januvia] 50 mg PO DAILY 07/21/15 05/31/18 Simvastatin [Zocor] 20 mg PO DAILY 07/21/15 05/31/18 Folic Acid 1 mg PO DAILY 12/26/16 05/31/18 Sucralfate [Carafate] 1 gm PO TID 12/26/16 05/31/18 Doxazosin [Cardura] 4 mg PO DAILY 05/31/17 05/31/18 GlipiZIDE [Glucotrol] 10 mg PO BID 05/31/17 05/31/18 Metformin HCl [Glucophage] 1,000 mg PO BID 05/31/17 05/31/18 Nitroglycerin [Nitrostat] 0.4 mg SL Q4 PRN 05/31/17 05/31/18 Albuterol HFA [Ventolin HFA 90 0.09 mg IH PRN PRN 05/31/18 05/31/18 mcg/actuation (8 g)] Albuterol/Ipratropium [Duoneb 3 3 ml IH BID 05/31/18 05/31/18 MG/3 Ml-0.5 MG/3 Ml 3 Ml] Mecobal/Levomefolat Ca/B6 Phos 2 mg PO DAILY 05/31/18 05/31/18 [Foltanx 3 mg-2 mg-35 mg] Sacubitril/Valsartan [Entresto 49 1 tab PO DAILY 05/31/18 05/31/18 mg-51 mg] Review of Systems - Physician Review All systems were reviewed & negative as marked: Yes - Review of Systems Constitutional: absent: Fatigue Eyes: absent: Vision Changes ENT: absent: Hearing Changes, Tinnitus, Voice Changes, Sinus Congestion Respiratory: absent: SOB, Cough Cardiovascular: absent: Chest Pain, Palpitations, Edema, Calf Pain, Syncope Gastrointestinal: Abdominal Pain (LLQ RLQ fullness). absent: Constipation, Diarrhea, Nausea, Vomiting, Hematochezia, Hematemesis Genitourinary Male: absent: Dysuria Musculoskeletal: absent: Arthralgias, Joint Swelling Skin: absent: Rash, Skin Lesions Neurological: Speech Changes (slurred speech x 4days), Facial Droop (mild left sided facial droop). absent: Headache, Dizziness, Focal Weakness, Gait Changes, Disequilibrium Endocrine: absent: Diaphoresis <Melinda Smith - Last Filed: 05/31/18 13:45> Physical Exam Vital Signs Reviewed: Yes Appearance: Positive for: Well-Appearing, Non-Toxic, Comfortable Pain Distress: Mild Mental Status: Positive for: Alert and Oriented X 3 Finger Stick Blood Glucose: 143 - Systems Exam Head: Present: Atraumatic, Normocephalic. No: Tenderness, Contusion, Swelling, Ecchymosis, Abrasion, Laceration Pupils: Present: PERRL Extroacular Muscles: Present: EOMI Mouth: Present: Moist Mucous Membranes Nose (Internal): Present: Other (left sided nasolabial flattening) Neck: Present: Normal Range of Motion Respiratory/Chest: Present: Clear to Auscultation, Good Air Exchange. No: Res piratory Distress, Accessory Muscle Use Cardiovascular: Present: Irregular Rhythm (atrial fibbrillation), Tachycardic. No: Murmurs Abdomen: Present: Distention (fluid wave present), Hernias (umbilical hernia reducible, nontender). No: Tenderness, Peritoneal Signs, Rebound, Guarding Upper Extremity: Present: Normal Inspection, Normal ROM, NORMAL PULSES, Neurovascularly Intact. No: Cyanosis, Edema Lower Extremity: Present: Normal Inspection, NORMAL PULSES, Normal ROM, Neurovascularly Intact. No: Edema, CALF TENDERNESS Neurological: Present: GCS=15, Motor Func Grossly Intact, Normal Sensory Function. No: Speech Normal (slurred speech) Skin: Present: Warm, Dry, Normal Color. 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 Ruiz as his PMD, will contact Dr. Ruiz regarding admission 05/31/18 13:[address] Ruiz regarding admission, he accepts the patient to his service to be admitted to telemetry, he requests Dr. Vincent (chris partner) for cardiology and Dr. Molina for neurology 05/31/18 13:45 - Lab Interpretations Lab Results: 05/31/18 10:50 05/31/18 10:50 Lab Results 05/31/18 10:50: Sodium 141, Potassium 3.8, Chloride 101, Carbon Dioxide 27, Anion Gap 16, BUN 32 H, Creatinine 1.6 H, Est GFR ( Amer) 50, Est GFR (Non-Af Amer) 41, Random Glucose 136 H, Calcium 10.0, Magnesium 1.8, Total Bilirubin 0.9, AST 50, ALT 44, Alkaline Phosphatase 115, Total Protein 7.8, Albumin 4.2, Globulin 3.7, Albumin/Globulin Ratio 1.1 05/31/18 10:50: PT 13.1 H, INR 1.16, APTT 26.8 L 05/31/18 10:50: WBC 4.2 L, RBC 3.40 L, Hgb 11.1 L D, Hct 34.6 L, MCV 101.8 D, MCH 32.6, MCHC 32.1, RDW 14.8 H, Plt Count 114 L, MPV 11.4 H, Neut % (Auto) 69.3 H, Lymph % (Auto) 18.8 L, [place] % (Auto) 11.2 H, Eos % (Auto) 0.7 L, Baso % (Auto) 0.0, Lymph # (Auto) 0.8 L, [place] # (Auto) 0.5, Eos # (Auto) 0.0, Baso # (Auto) 0.00, Absolute Neuts (auto) 2.91 - RAD Interpretation Radiology Orders: 05/31/18 10:42 ABD & PELVIS IV CONTRAST ONLY [CT] Stat 05/31/18 10:43 HEAD W/O CONTRAST [CT] Stat - EKG Interpretation EKG Interpretation (Text): Atrial fibrillation with left BBB, left BBB is present in prior EKGs unchanged 05/31/18 11:24 Interpreted by ED Physician: Yes Type: 12 lead EKG Comparison: Different from prev. EKG <Melinda Smith - Last Filed: 05/31/18 13:45> ED Course and Treatment: 05/31/18 11:27 88 year old male presents to the ED for evaluation of slurred speech since 4 days and new onset of A-fib. In agreement with resident note which contains more details about the patient. Patient seen and evaluated with resident. Came up with plan and treatment together. - Lab Interpretations Lab Results: Total Bilirubin 0.9 mg/dL (0.2-1.3) 05/31/18 10:50 AST 50 U/L (17-59) 05/31/18 10:50 ALT 44 U/L (7-56) 05/31/18 10:50 Alkaline Phosphatase 115 U/L (38-126) 05/31/18 10:50 Total Protein 7.8 g/dL (5.8-8.3) 05/31/18 10:50 Albumin 4.2 g/dL (3.0-4.8) 05/31/18 10:50 Globulin 3.7 gm/dL 05/31/18 10:50 Albumin/Globulin Ratio 1.1 (1.1-1.8) 05/31/18 10:50 - RAD Interpretation Radiology Orders: 05/31/18 10:42 ABD & PELVIS IV CONTRAST ONLY [CT] Stat 05/31/18 10:43 HEAD W/O CONTRAST [CT] Stat <Destini GUILLORYEliceo Filed: 05/31/18 16:12> rTPA Inclusion/Exclusion - Refusal of Treatment Patient Refused Treatment: No - Inclusion Criteria for Altepase Patient is 18 years or Older: Yes The Clinical Diagnosis of Ischemic Stroke That is Causing a Potentially Disabling Neurological Deficit: Yes Time of Onset is Well Established to be Less Than 270 Minute Before Treatment Would Begin: No Risk/Benefit Discussed With Patient/Family Member Present: No <Destini GUILLORYEliceo Catalan Filed: 05/31/18 16:12> NIHSS Scale ([place]) Time Performed: 10:40 - How Severe is the Stoke Baseline Level of Consciousness: 0=Alert LOC to Questions: 0=Both comments correct LOC to commands: 0=Obeys both correctly Best Gaze: 0=Normal Visual: 0=No visual loss Facial: 1=Minor asymmetry Motor Arm - Left: 0=No drift Motor Arm - Right: 0=No drift Motor Leg - Left: 0=No drift Motor Leg - Right: 0=No drift Limb Ataxia: 0=Absent Sensory: 0=Normal Best Language: 0=No aphasia Dysarthia: 1=Mild to moderate slurring Extinction & Inattention (Neglect): 0=Normal, no object Score: 2 Risk Level: Minor Stroke Risk <Destini GUILLORYEliceo Catalan Filed: 05/31/18 16:12> - PA / FLASHER ADJUSTER / Resident Statement TAYLOR has reviewed & agrees with the documentation as recorded. TAYLOR has examined the patient and agrees with the treatment plan. - Scribe Statement The provider has reviewed the documentation as recorded by the Scribe Elke Alcantar. All medical record entries made by the Eduardoibjeri were at my direction and personally dictated by me. I have reviewed the chart and agree that the record accurately reflects my personal performance of the history, physical exam, medical decision making, and the department course for this patient. I have also personally directed, reviewed, and agree with the discharge instructions and disposition. <Destini GUILLORYEliceo Catalan Filed: 05/31/18 16:12> Disposition/Present on Arrival - Present on Arrival Any Indicators Present on Arrival: No History of DVT/PE: No History of Uncontrolled Diabetes: No Urinary Catheter: No History of Decub. Ulcer: No History Surgical Site Infection Following: None - Disposition Have Diagnosis and Disposition been Completed?: Yes Patient Plan: Admission, Telemetry <Melinda Smith - Last Filed: 05/31/18 13:45> - Disposition Disposition Time: 13:30 <Eliceo Georges DO - Last Filed: 05/31/18 16:12> - Disposition Diagnosis: Stroke, Atrial fibrillation, New onset atrial fibrillation Disposition: HOSPITALIZED Patient Problems: Current Active Problems Problem Status Onset Stroke Acute Atrial fibrillation Acute Condition: FAIR
[2018-05-31 11:16] LABS: EOS % 0.7 % (1.5-5.0); HEMOGLOBIN 11.1 g/dL (14.0-18.0); LYMPH # 0.8 (1.2-3.4); LYMPH % 18.8 % (22.0-35.0); MEAN CELL VOLUME 101.8 fl (80.0-105.0); MEAN CORPUSCULAR HEMOGLOBIN 32.6 pg (25.0-35.0); MEAN CORPUSCULAR HGB CONC 32.1 g/dl (31.0-37.0); MEAN PLATELET VOLUME 11.4 fl (7.0-11.0); MONO # 0.5 (0.1-0.6); MONO % 11.2 % (1.0-6.0); RBC 3.4 10^6/uL (3.5-6.1); RED CELL DISTRIBUTION WIDTH 14.8 % (11.5-14.5); WHITE BLOOD COUNT 4.2 10^3/uL (4.5-11.0)
[2018-05-31 11:23] LABS: ALB/GLOB RATIO 1.1 (1.1-1.8); ALBUMIN 4.2 g/dL (3.0-4.8)
[2018-05-31 11:28] LABS: INR 1.16; PARTIAL THROMBOPLASTIN TIME 26.8 Seconds (26.9-38.3); PROTHROMBIN TIME 13.1 SECONDS (9.4-12.5)
--- NOTE | 2018-05-31 12:22 | CT ---
Date of service: 05/31/2018 PROCEDURE: CT HEAD WITHOUT CONTRAST. HISTORY: Slurred speech x 4 days COMPARISON: No prior TECHNIQUE: Axial computed tomography images were obtained through the head/brain without intravenous contrast. Radiation dose: Total exam DLP = 844.54 mGy-cm. This CT exam was performed using one or more of the following dose reduction techniques: Automated exposure control, adjustment of the mA and/or kV according to patient size, and/or use of iterative reconstruction technique. FINDINGS: HEMORRHAGE: No acute parenchymal, subarachnoid or extra-axial hemorrhage. BRAIN: Mild encephalomalacia changes right inferior frontal pole likely posttraumatic given the location and appearance however clinical correlation recommended. Mild chronic periventricular white matter ischemic changes seen extending peripherally into the deep and to a lesser degree subcortical white matter both cerebral hemispheres. May also be a few tiny chronic bilateral basal nuclei lacunar type infarcts. Note that the possibility of a small hyperacute infarct cannot be excluded based on this exam clinical correlation recommended. Moderate volume loss. Mild vascular calcifications both carotid siphons and vertebral arteries. VENTRICLES: Unremarkable. No hydrocephalus. CALVARIUM: No acute calvarial fractures. There scalp calcifications present consistent with underlying IDDM however clinical correlation recommended. The PARANASAL SINUSES: Frontal sinus is atretic. Minor mucosal thickening seen within the ethmoid air complex. Maxillary antra are also diminutive in overall volume MASTOID AIR CELLS: Mastoid air complexes are slightly underpneumatized and sclerotic.. OTHER FINDINGS: None. IMPRESSION: Mild encephalomalacia changes right inferior frontal pole likely posttraumatic given the location and appearance however clinical correlation recommended. Mild chronic periventricular white matter ischemic changes seen extending peripherally into the deep and to a lesser degree subcortical white matter both cerebral hemispheres. May also be a few tiny chronic bilateral basal nuclei lacunar type infarcts. Note that the possibility of a small hyperacute infarct cannot be excluded based on this exam clinical correlation recommended. Moderate volume loss. Findings suggest underlying IDDM as detailed above.
--- NOTE | 2018-05-31 12:39 | CT ---
Date of service: 05/31/2018 PROCEDURE: CT Abdomen and Pelvis without intravenous contrast HISTORY: abd pain/distention COMPARISON: Abdomen pelvis CT without 07/23/2015. TECHNIQUE: Helical CT of the abdomen and pelvis was performed following oral contrast administration only. Intravenous contrast was not administered as per referring physician request. Coronal and sagittal reformats were generated. Contrast dose: Radiation dose: Total exam DLP = 928.49 mGy-cm. This CT exam was performed using one or more of the following dose reduction techniques: Automated exposure control, adjustment of the mA and/or kV according to patient size, and/or use of iterative reconstruction technique. FINDINGS: LOWER THORAX: Cardiomegaly reiterated with trace pericardial thickening or fluid identified in the interval. Coronary artery calcifications reiterated. Mild left pleural effusion identified with linear atelectasis or fibrosis identified at the left base. Small hiatal hernia present. Stable benign nodule reiterated the medial right lower lobe base measuring 5 mm. Punctate, calcified granulomata again noted at the bilateral bases. LIVER: A cirrhotic nodular liver is appreciated slightly smaller in size than previously shown but overall average size in general. Mild hepatomegaly appears somewhat diminished. A low-density lesion versus focal fatty infiltration appears to affect the posterior portion right lower lobe liver, however, lack of intravenous contrast limits evaluation of the solid abdominal viscera. GALLBLADDER AND BILE DUCTS: Minimal cholelithiasis identified within a mildly distended gallbladder. PANCREAS: Chronic pancreatitis related calcifications are seen distributed randomly throughout a trophic pancreas once again. No peripancreatic reaction fluid collection appreciated. SPLEEN: Splenomegaly identified to 14.9 cm. ADRENALS: Unremarkable. No mass. KIDNEYS AND URETERS: Unremarkable. No hydronephrosis. No solid mass. VASCULATURE: Nonaneurysmal abdominal aortic calcific atherosclerotic changes are identified once again. Gastrohepatic ligament varices are not completely excluded. BOWEL: No bowel obstruction identified. Moderate fecal loading is seen within large bowel. APPENDIX: Normal. PERITONEUM: Moderately prominent ascites diffusely noted. Mesenteric adenitis not excluded. Central mesenteric lymph nodes are identified as well as pericecal shotty lymph nodes. LYMPH NODES: Unremarkable. No enlarged lymph nodes. BLADDER: Unremarkable. REPRODUCTIVE: Mild prostate gland enlargement again evident. BONES: Grade 1 spondylolisthesis L5-S1 with L5 slightly posterior to S1 on a degenerative basis. No spondylolysis identified peer straightened thoracolumbar curvature. OTHER FINDINGS: None. IMPRESSION: 1. A nodular cirrhotic liver is appreciated slightly smaller in size than previously shown reflecting diminishing hepatomegaly. Splenomegaly is apparent. Limited gastrohepatic ligament varices are not completely excluded. A mass is difficult to completely exclude the posterior portion right lobe liver and follow-up ultrasound is recommended for added characterization. Lack of intravenous contrast limits interpretation. 2. Chronic pancreatitis reiterated. No acute peripancreatic reaction or fluid collection to suggest acute pancreatitis. 3. Mesenteric adenitis question. 4. Enlarged prostate gland.
[2018-05-31] MEDS ORDERED: Sodium Chloride 0.9% 1,000 ML IV SCH (16:30)
[2018-05-31] MEDS: Insulin Reg-LOW-Coverage SC SCH ×2 (17:02→21:30)
[2018-05-31] MEDS ORDERED: Pneumococcal 23-Valent Vaccine IM ONE (23:18)
[2018-05-31] MEDS ORDERED: Influenza Vaccine 60 mcg/0.5 mL SYR (4YR UP) IM ONE (23:18)
--- NOTE | 2018-06-01 06:28 | CP.PCM.HP ---
<Karen Husain - Last Filed: 06/01/18 19:45> History of Present Illness - History of Present Illness History of Present Illness: [facility] progress note for Dr. Coats 88yo male PMHx CAD s/p 8 stents, HTN, HLD, CHF, GA, DM2, prior tobacco use, ESDRAS, bladder ca, Hep C sent in by PMD for slurred speech and minimal left sided facial droop for 4 days. Patient denied noticing these changes and denied any headache, dizziness, vision changes, focial weakness/deficits, numbness/tingling in extremities. He did admit to abdominal pain and distention in his lower abdo men with no associated nausea/vomiting/bowel/bladder changes. On further ROS patient denied fever, chills, change in appetite, weight changes. 12 point ROS reviewed and negative unless otherwise specified. PMHx: CAD s/p 8 stents, HTN, HLD, CHF, GA, DM2, prior tobacco use, ESDRAS, bladder ca, HepC Meds: pls see chart ALL: codeine, mushrooms, vancomycin FamHx: noncontributory SocHx: prior tobacco use 30 years ago, denied EtOH, drug use. Lives at home with . Patient has unsteady gait and helps with ADLs Present on Admission - Present on Admission Any Indicators Present on Admission: No Review of Systems - Review of Systems All systems: reviewed and no additional remarkable complaints except Review of Systems: as per HPI Past Patient History - Infectious Disease Hx of Infectious Diseases: None - Tetanus Immunizations Tetanus Immunization: Unknown - Past Social History Smoking Status: Former Smoker - CARDIAC Hx Cardiac Disorders: Yes (mi, cad) Hx Congestive Heart Failure: Yes Hx Hypercholesterolemia: Yes Hx Hypertension: Yes Hx Peripheral Edema: Yes (ble +1) - PULMONARY Hx Respiratory Disorders: Yes (respiratory distress) Hx Bronchitis: Yes (Chronic) Hx Pneumonia: Yes - NEUROLOGICAL Hx Neurological Disorder: No - HEENT Hx HEENT Problems: Yes (eyeglasses) - RENAL Hx Chronic Kidney Disease: Yes Other/Comment: Bladder Ca remission - ENDOCRINE/METABOLIC Hx Endocrine Disorders: Yes Hx Diabetes Mellitus Type 2: Yes - HEMATOLOGICAL/ONCOLOGICAL Hx Blood Disorders: Yes (sepsis) Hx Anemia: Yes (iron deficiency) Hx Cancer: Yes (bladder dx 10 yrs ago) Hx Chemotherapy: No Hx Hepatitis C: Yes Other/Comment: iron infusions dr Alexander and b12 shots. cystos were every 6 months now once a year has appt sched with dr payne in june as f/u with bladder ca - INTEGUMENTARY Hx Dermatological Problems: Yes (red buttocks) - MUSCULOSKELETAL/RHEUMATOLOGICAL Hx Falls: No - GASTROINTESTINAL Hx Gastrointestinal Disorders: No (colon polyps) - GENITOURINARY/GYNECOLOGICAL Hx Genitourinary Disorders: No - PSYCHIATRIC Hx Substance Use: No - SURGICAL HISTORY Hx Cardiac Catheterization: Yes Hx Coronary Stent: Yes (x8 ptca) Other/Comment: tooth extraction 3 months ago, cysto turbt x 3 or 4 - ANESTHESIA Hx Anesthesia: Yes Hx Anesthesia Reactions: Yes (DIFF WAKING UP AFTER A PROCEDURE IN HOSPITAL) Hx Malignant Hyperthermia: No Meds Allergies/Adverse Reactions: Allergies Allergy/AdvReac Type Severity Reaction Status Date / Time codeine Allergy FATIGUE Verified 06/08/17 20:30 mushroom Allergy RASH Verified 06/08/17 20:30 vancomycin AdvReac RASH Verified 06/08/17 20:30 Physical Exam - Constitutional Appears: Non-toxic, No Acute Distress - Head Exam Head Exam: ATRAUMATIC, NORMAL INSPECTION, NORMOCEPHALIC - Eye Exam Eye Exam: EOMI, Normal appearance, PERRL. absent: Conjunctival injection, Scleral icterus - ENT Exam ENT Exam: Mucous Membranes Moist - Neck Exam Neck exam: Positive for: Full Rom, Normal Inspection - Respiratory Exam Respiratory Exam: Clear to Auscultation Bilateral, Wheezes, NORMAL BREATHING PATTERN. absent: Accessory Muscle Use, Rales, Rhonchi, Respiratory Distress - Cardiovascular Exam Cardiovascular Exam: Irregular Rhythm, +S1, +S2 - GI/Abdominal Exam GI & Abdominal Exam: Normal Bowel Sounds, Soft. absent: Firm, Guarding, Tenderness - Extremities Exam Extremities exam: Positive for: normal inspection, pedal pulses present. Negative for: pedal edema - Back Exam Back exam: NORMAL INSPECTION. absent: rash noted, tenderness - Neurological Exam Neurological exam: Alert, CN II-XII Intact, Oriented x3, Reflexes Normal - Psychiatric Exam Psychiatric exam: Normal Affect, Normal Mood - Skin Skin Exam: Dry, Intact, Normal Color, Warm Results - Vital Signs Recent Vital Signs: Last Vital Signs Temp 98.1 F 06/01/18 06:00 Pulse 78 06/01/18 06:00 Resp 18 06/01/18 06:00 BP 113/65 06/01/18 06:00 Pulse Ox 97 06/01/18 06:00 - Labs Result Diagrams: 06/01/18 08:15 06/01/18 08:15 Labs: Laboratory Results - last 24 hr 05/31/18 05/31/18 05/31/18 10:50 10:50 10:50 WBC 4.2 L RBC 3.40 L Hgb 11.1 L D Hct 34.6 L MCV 101.8 D MCH 32.6 MCHC 32.1 RDW 14.8 H Plt Count 114 L MPV 11.4 H Neut % (Auto) 69.3 H Lymph % (Auto) 18.8 L [place] % (Auto) 11.2 H Eos % (Auto) 0.7 L Baso % (Auto) 0.0 Lymph # (Auto) 0.8 L [place] # (Auto) 0.5 Eos # (Auto) 0.0 Baso # (Auto) 0.00 Absolute Neuts (auto) 2.91 PT 13.1 H INR 1.16 APTT 26.8 L Sodium 141 Potassium 3.8 Chloride 101 Carbon Dioxide 27 Anion Gap 16 BUN 32 H Creatinine 1.6 H Est GFR ( Amer) 50 Est GFR (Non-Af Amer) 41 POC Glucose (mg/dL) Random Glucose 136 H Calcium 10.0 Magnesium 1.8 Total Bilirubin 0.9 AST 50 ALT 44 Alkaline Phosphatase 115 Total Protein 7.8 Albumin 4.2 Globulin 3.7 Albumin/Globulin Ratio 1.1 05/31/18 05/31/18 16:16 21:00 WBC RBC Hgb Hct MCV MCH MCHC RDW Plt Count MPV Neut % (Auto) Lymph % (Auto) [place] % (Auto) Eos % (Auto) Baso % (Auto) Lymph # (Auto) [place] # (Auto) Eos # (Auto) Baso # (Auto) Absolute Neuts (auto) PT INR APTT Sodium Potassium Chloride Carbon Dioxide Anion Gap BUN Creatinine Est GFR ( Amer) Est GFR (Non-Af Amer) POC Glucose (mg/dL) 130 H 154 H Random Glucose Calcium Magnesium Total Bilirubin AST ALT Alkaline Phosphatase Total Protein Albumin Globulin Albumin/Globulin Ratio Assessment & Plan - Assessment and Plan (Free Text) Assessment: - Paroxysmal Afib - Abdominal distention - CAD s/p 8 stents - HTN - HLD - Systolic CHF - DM2 - ESDRAS - Bladder Ca - Hep C - Prior tobacco abuse Plan: Patient admitted to TELE. No acute events overnight as per nursing. Patient's Afib rate controlled. TSH and free T4 wnl. [id number] 5 HAS-BLED 4. As per patient's chart patient was hospitalized for GI bleed in the past and was unable to be anticoagulated. Echo ordered- will f/u. Lipid panel wnl. Patient on home lipitor 10hs. Cardiology consulted. CT head unremarkable for acute bleed. Neurology consulted- MRI brain ordered- will f/u. CT Abd pelvis reviewed in light of abdominal pain and distention. AFP ordered- will f/u. Patient's HgbA1c 5.4. PO hypoglycemic medication on hold. Accucheck achs and RISS low on board. Continue home Entresto for chronic systolic CHF. Maintain normotension, normothermia, and euglycemia. SCDs on board. HHD ordered and PT ordered. Discussed with Dr. Pauly Husain PGY3 <Jamarcus Coats S - Last Filed: 06/02/18 20:49> Results - Vital Signs Recent Vital Signs: Last Vital Signs Temp 98.4 F 06/02/18 18:00 Pulse 79 06/02/18 18:00 Resp 18 06/02/18 18:00 BP 141/60 06/02/18 18:00 Pulse Ox 98 06/02/18 05:42 - Labs Result Diagrams: 06/02/18 07:00 06/02/18 07:00 Labs: Laboratory Results - last 24 hr 06/01/18 06/02/18 06/02/18 21:45 07:00 07:00 WBC 4.0 L RBC 3.25 L Hgb 10.6 L Hct 33.0 L MCV 101.5 MCH 32.6 MCHC 32.1 RDW 14.8 H Plt Count 107 L MPV 10.6 Sodium 140 Potassium 3.4 L Chloride 104 Carbon Dioxide 28 Anion Gap 11 BUN 30 H Creatinine 1.4 Est GFR ( Amer) 58 Est GFR (Non-Af Amer) 48 POC Glucose (mg/dL) 193 H Random Glucose 126 H Calcium 9.2 Phosphorus 3.5 Magnesium 1.8 Total Bilirubin 0.8 AST 53 ALT 39 Alkaline Phosphatase 102 Total Protein 7.1 Albumin 3.6 Globulin 3.4 Albumin/Globulin Ratio 1.0 L 06/02/18 06/02/18 06/02/18 07:31 11:46 17:04 WBC RBC Hgb Hct MCV MCH MCHC RDW Plt Count MPV Sodium Potassium Chloride Carbon Dioxide Anion Gap BUN Creatinine Est GFR ( Amer) Est GFR (Non-Af Amer) POC Glucose (mg/dL) 138 H 211 H 133 H Random Glucose Calcium Phosphorus Magnesium Total Bilirubin AST ALT Alkaline Phosphatase Total Protein Albumin Globulin Albumin/Globulin Ratio Assessment & Plan - Assessment and Plan (Free Text) Plan: Pt seen and examined by me. This is a late entry. I have reviewed the note of the medical assistant and I agree with it. I have discussed the assessment and plan with the resident. I have reviewed the medications and the last labs.Pt with TIA that has resolved. Cardiology on consult. Will need TSH. Pt is on Lipitor for dyslipidemia. Spoke to daughter to update her. New onset on A fib. DM-2 controlled with good HBA1C. BP is controlled.
[2018-06-01] MEDS: Insulin Reg-LOW-Coverage SC SCH ×4 (07:37→21:49)
[2018-06-01 07:54] LABS: HDL CHOLESTEROL 40 mg/dL (29-60)
[2018-06-01 08:05] LABS: LDL CHOLESTEROL 64 mg/dL (0-129)
[2018-06-01 08:31] LABS: HEMOGLOBIN 10.7 g/dL (14.0-18.0); MEAN CELL VOLUME 103.1 fl (80.0-105.0); MEAN CORPUSCULAR HEMOGLOBIN 33.5 pg (25.0-35.0); MEAN CORPUSCULAR HGB CONC 32.5 g/dl (31.0-37.0); MEAN PLATELET VOLUME 11.4 fl (7.0-11.0); RBC 3.19 10^6/uL (3.5-6.1); RED CELL DISTRIBUTION WIDTH 14.7 % (11.5-14.5); WHITE BLOOD COUNT 3.9 10^3/uL (4.5-11.0)
[2018-06-01 08:44] LABS: ALB/GLOB RATIO 1.1 (1.1-1.8); ALBUMIN 3.7 g/dL (3.0-4.8); CALCIUM 9.7 mg/dL (8.4-10.5)
[2018-06-01 10:01] LABS: FREE T4 2.04 ng/dL (0.78-2.19)
--- NOTE | 2018-06-01 11:17 | CARD ---
APPROVED REPORT Date of service: 05/31/2018 EKG Measurement Heart [id number] <Conclusion> Atrial fibrillation Left bundle branch block Abnormal ECG
--- NOTE | 2018-06-01 11:55 | CARD ---
APPROVED REPORT Date of service: 06/01/2018 EXAM: Two-dimensional and M-mode echocardiogram with Doppler and color Doppler. INDICATION Atrial Fibrillation 2D DIMENSIONS Left Atrium (2D)5.7 (1.6-4.0cm)IVSd1.3 (0.7-1.1cm) LVDd6.2 (3.9-5.9cm)PWd1.4 (0.7-1.1cm) LVDs5.0 (2.5-4.0cm)FS (%) 19.0 % LVEF (%)38.5 (>50%) M-Mode DIMENSIONS Aortic Root2.60 (2.2-3.7cm)Aortic Cusp Exc.1.50 (1.5-2.0cm) Aortic Valve AoV Peak Ytwylysl032.0cm/Petey Peak GR.8mmHg Mitral Valve E/A ratio0.0 TDI E/Lateral E'0.0E/Medial E'0.0 Tricuspid Valve TR Peak [id number] Peak Gr.50mmHg [id number] LEFT VENTRICLE The Left Ventricle is mildly dilated. There is mild concentric left ventricular hypertrophy. The systolic function is moderately impaired.EF-35-40% There is mild to moderate hypokinesis in the apical anterior wall. distolic Fx could not be assessd , as pt was in in A fib ate time of study. No left ventricle thrombus noted on this study. There is no ventricular septal defect visualized. There is no left ventricular aneurysm. There is no mass noted in the left ventricle. RIGHT VENTRICLE The right ventricle is normal size. There is normal right ventricular wall thickness. The right ventricular systolic function is normal. ATRIA The left atrium is mildly dilated. The right atrium is mildly dilated. The interatrial septum is intact with no evidence for an atrial septal defect. AORTIC VALVE The aortic valve is calcified but opens well. No aortic regurgitation is present. Aorticsclerosis but no stenosis. There is no aortic valvular vegetation. MITRAL VALVE The mitral valve is thickened but opens well. Mitral regurgitation is moderate. There is no mitral valve stenosis. There is no evidence of mitral valve prolapse. TRICUSPID VALVE The tricuspid valve leaflets are thickened , but open well. There is moderate tricuspid regurgitation.RVSP-60 mmkof Hg. There is moderate pulmonary hypertension. There is no tricuspid valve stenosis. There is no tricuspid valve prolapse or vegetation. PULMONIC VALVE The pulmonic valve is mildly thickened. There is mild to moderate pulmonic valvular regurgitation. There is no pulmonic valvular stenosis. GREAT VESSELS The aortic root is normal in size. The ascending aorta is normal in size. The pulmonary artery is normal. The IVC is normal in size and collapses >50% with inspiration. PERICARDIAL EFFUSION There is no pleural effusion. Trivial PE. <Conclusion> The Left Ventricle is mildly dilated. The systolic function is moderately impaired.EF-35-40% Mitral regurgitation is moderate. There is moderate tricuspid regurgitation.RVSP-60 mmkof Hg. There is moderate pulmonary hypertension. There is mild to moderate pulmonic valvular regurgitation. The IVC is normal in size and collapses >50% with inspiration. Trivial PE.
--- NOTE | 2018-06-01 16:09 | MRI ---
Date of service: 06/01/2018 PROCEDURE: MRI BRAIN WITHOUT CONTRAST HISTORY: r/o stroke COMPARISON: None available. TECHNIQUE: Multiplanar, multisequence MR images of the brain were obtained without intravenous contrast enhancement. FINDINGS: HEMORRHAGE: None DWI: No evidence of an acute or early subacute infarction. BRAIN PARENCHYMA: Good corticomedullary differentiation is seen. Reiterated diffuse cerebral atrophy and chronic microangiopathy. Chronic infarct or posttraumatic cystic encephalomalacia reiterated inferior medial right frontal lobe no suspicious extra-axial fluid collection is identified and the midline brain anatomy appears grossly nonfocal as imaged. No mass effect identified. VENTRICLES: Unremarkable. No hydrocephalus. CRANIUM: Unremarkable. ORBITS: Grossly unremarkable. PARANASAL SINUSES/MASTOIDS: Clear VASCULAR SYSTEM: Skull base flow voids intact. OTHER FINDINGS: None. IMPRESSION: No definitive acute intracranial findings by standard MR criteria, including brain infarction. 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 No additional lobar infarctions otherwise. Age-related neuro degenerative changes are reiterated compared prior CT 05/31/2018.
--- NOTE | 2018-06-01 18:04 | CP.PCM.CON ---
History of Present Illness - History of Present Illness History of Present Illness: Neurology Consultation (Dr. Gonzalez's Service) Consulting Physician: Dr. Jamarcus Coats CC: Dysarthria/Facial Droop HPI: Mr. Pierce is an 88 year old male with a past medical history significant for CAD s/p 8 HERSON, previous MD, HTN, HLD, systolic CHF (EF: 38%), DM2, prior tobacco use, ESDRAS, bladder cancer, paroxysmal atrial fibrillation and hepatitis C who presents with four days duration of dysarthria and left sided facial droop. Of note, Bulgarian is the patients first language and daughter at bedside to help with translation of HPI. Patient reports that these symptoms started four days ago but that he did not notice them himself. He reports that his family began noticing these changes and, when they did not improve, decided that he be evaluated by his PMD. After contacting his PMD, Dr. Monreal, regarding his symptoms, he was instructed to go to the ED for further evaluation. Patient also reports that he was recently diagnosed with paroxysmal atrial fibrillation by Dr. Monreal as well. Currently, patient is resting comfortably without any complaints. 12 point ROS currently unremarkable. PMH: As stated above PSH: Denies Family History: Denies Social History: Former tobacco abuse (Quit 30 years ago); Denies any alcohol or illicit drug abuse; Lives at home with ; Unsteady gait and requires some assistance with ADL's at home Allergies: Codeine, Mushrooms, Vancomycin Home Medications: As per [facility] PMD: Dr. Monreal Review of Systems - Review of Systems Review of Systems: As stated in HPI, otherwise negative Past Patient History - Infectious Disease Hx of Infectious Diseases: None - Tetanus Immunizations Tetanus Immunization: Unknown - Past Social History Smoking Status: Former Smoker - CARDIAC Hx Cardiac Disorders: Yes (CAD, prior MD,) Hx Congestive Heart Failure: Yes Hx Hypertension: Yes - PULMONARY Hx Respiratory Disorders: Yes (respiratory distress) Hx Bronchitis: Yes (Chronic) Hx Pneumonia: Yes - NEUROLOGICAL Hx Neurological Disorder: No - HEENT Hx HEENT Problems: Yes (eyeglasses) - RENAL Hx Chronic Kidney Disease: Yes Other/Comment: Bladder Ca remission - ENDOCRINE/METABOLIC Hx Diabetes Mellitus Type 1: Yes - HEMATOLOGICAL/ONCOLOGICAL Hx Blood Disorders: Yes (sepsis) Hx Anemia: Yes (iron deficiency) Hx Cancer: Yes (bladder dx 10 yrs ago) Hx Chemotherapy: No Hx Hepatitis C: Yes Other/Comment: iron infusions dr Alexander and b12 shots. cystos were every 6 months now once a year has appt sched with dr payne in june as f/u with bladder ca - INTEGUMENTARY Hx Dermatological Problems: Yes (red buttocks) - MUSCULOSKELETAL/RHEUMATOLOGICAL Hx Falls: No - GASTROINTESTINAL Hx Gastrointestinal Disorders: No (colon polyps) - GENITOURINARY/GYNECOLOGICAL Hx Genitourinary Disorders: No - PSYCHIATRIC Hx Substance Use: No - SURGICAL HISTORY Hx Cardiac Catheterization: Yes Hx Coronary Stent: Yes (x8 ptca) Other/Comment: tooth extraction 3 months ago, cysto turbt x 3 or 4 - ANESTHESIA Hx Anesthesia: Yes Hx Anesthesia Reactions: Yes (DIFF WAKING UP AFTER A PROCEDURE IN HOSPITAL) Hx Malignant Hyperthermia: No Meds Allergies/Adverse Reactions: Allergies Allergy/AdvReac Type Severity Reaction Status Date / Time codeine Allergy FATIGUE Verified 06/08/17 20:30 mushroom Allergy RASH Verified 06/08/17 20:30 vancomycin AdvReac RASH Verified 06/08/17 20:30 - Medications Medications: Current Medications Aspirin (Ecotrin) 81 mg PO DAILY [facility] Last Admin: 06/01/18 10:04 Dose: 81 mg Atorvastatin Calcium (Lipitor) 10 mg PO HS [facility] Last Admin: 05/31/18 21:31 Dose: 10 mg Folic Acid (Folic Acid) 1 mg PO DAILY [facility] Last Admin: 06/01/18 10:04 Dose: 1 mg Glipizide (Glucotrol) 10 mg PO BID [facility] Last Admin: 06/01/18 17:30 Dose: 10 mg Insulin Human Regular (Humulin R Low) 0 units SC [facility]; Protocol Last Admin: 06/01/18 17:30 Dose: 1 unit Sitagliptin Phosphate (Januvia) 50 mg PO DAILY [facility] Last Admin: 06/01/18 10:04 Dose: 50 mg Sucralfate (Carafate Tab) 1 gm PO TID [facility] Last Admin: 06/01/18 17:30 Dose: 1 gm Physical Exam - Constitutional Appears: Non-toxic, No Acute Distress - Head Exam Head Exam: ATRAUMATIC, NORMOCEPHALIC - Eye Exam Eye Exam: EOMI, Normal appearance, PERRL. absent: Conjunctival injection, Nystagmus, Periorbital swelling, Periorbital tenderness, Scleral icterus Pupil Exam: NORMAL ACCOMODATION, PERRL. absent: Fixed, Irregular, Miosis, Mydriatic, Unequal - ENT Exam ENT Exam: Mucous Membranes Moist - Neck Exam Neck exam: Positive for: Full Rom, Normal Inspection - Respiratory Exam Respiratory Exam: Clear to Auscultation Bilateral, NORMAL BREATHING PATTERN - Cardiovascular Exam Cardiovascular Exam: REGULAR RHYTHM - GI/Abdominal Exam GI & Abdominal Exam: Normal Bowel Sounds, Soft. absent: Tenderness - Neurological Exam Neurological exam: Alert, CN II-XII Intact, Oriented x3, Reflexes Normal - Expanded Neurological Exam Expanded Patient oriented to: person, place, time Cranial nerves: EOM's Intact: Normal, Facial Palsey w/Forehead Movement: Normal, Facial Palsey w/o Forehead Movement: Normal, Facial Sensation: Normal, Gag Reflex: Normal, Nystagmus: Normal, Tongue Deviation: Normal Ataxia: No Cerebellar Function: Finger to Nose: Normal, Heel to Correia: Normal Upper motor neuron: Babinski Sign: Normal, Te Neglect: Normal, Pronator Drift: Normal, Sensory Extinction: Normal Sensory exam: Lower Extremity Light Touch: Normal, Lower Extremity Pin Prick: Normal, Upper Extremity Light Touch: Normal, Upper Extremity Pin Prick: Normal Neuro motor strength exam: Left Upper Extremity: 4, Right Upper Extremity: 4, Left Lower Extremity: 4, Right Lower Extremity: 4 Coma Scale Eye Opening: SPONTANEOUS Coma Scale Motor Response: OBEYS COMMANDS Coma Scale Verbal: Oriented Coma Scale Total: 15 - Psychiatric Exam Psychiatric exam: Normal Affect, Normal Mood - Skin Skin Exam: Dry, Intact, Normal Color, Warm Results - Vital Signs Recent Vital Signs: Last Vital Signs Temp 98.2 F 06/01/18 11:30 Pulse 94 H 06/01/18 11:30 Resp 20 06/01/18 11:30 BP 140/78 06/01/18 11:30 Pulse Ox 97 06/01/18 06:00 - Labs Result Diagrams: 06/01/18 08:15 06/01/18 08:15 Labs: Laboratory Results - last 24 hr 05/31/18 05/31/18 06/01/18 16:16 21:00 07:16 WBC RBC Hgb Hct MCV MCH MCHC RDW Plt Count MPV Sodium Potassium Chloride Carbon Dioxide Anion Gap BUN Creatinine Est GFR ( Amer) Est GFR (Non-Af Amer) POC Glucose (mg/dL) 130 H 154 H 93 Random Glucose Hemoglobin A1c Calcium Phosphorus Magnesium Total Bilirubin AST ALT Alkaline Phosphatase Total Protein Albumin Globulin Albumin/Globulin Ratio Triglycerides Cholesterol LDL Cholesterol Direct HDL Cholesterol Alpha Fetoprotein Free T4 TSH 3rd Generation 06/01/18 06/01/18 06/01/18 07:30 08:15 08:15 WBC 3.9 L RBC 3.19 L Hgb 10.7 L Hct 32.9 L MCV 103.1 MCH 33.5 MCHC 32.5 RDW 14.7 H Plt Count 109 L MPV 11.4 H Sodium 142 Potassium 3.7 Chloride 106 Carbon Dioxide 28 Anion Gap 12 BUN 31 H Creatinine 1.5 Est GFR ( Amer) 54 Est GFR (Non-Af Amer) 44 POC Glucose (mg/dL) Random Glucose 100 Hemoglobin A1c Calcium 9.7 Phosphorus 3.8 Magnesium 1.8 Total Bilirubin 0.8 AST 50 ALT 43 Alkaline Phosphatase 108 Total Protein 7.1 Albumin 3.7 Globulin 3.4 Albumin/Globulin Ratio 1.1 Triglycerides 115 Cholesterol 133 LDL Cholesterol Direct 64 HDL Cholesterol 40 Alpha Fetoprotein Free T4 TSH 3rd Generation 06/01/18 06/01/18 06/01/18 08:15 09:16 09:18 WBC RBC Hgb Hct MCV MCH MCHC RDW Plt Count MPV Sodium Potassium Chloride Carbon Dioxide Anion Gap BUN Creatinine Est GFR ( Amer) Est GFR (Non-Af Amer) POC Glucose (mg/dL) Random Glucose Hemoglobin A1c 5.4 Calcium Phosphorus Magnesium Total Bilirubin AST ALT Alkaline Phosphatase Total Protein Albumin Globulin Albumin/Globulin Ratio Triglycerides Cholesterol LDL Cholesterol Direct HDL Cholesterol Alpha Fetoprotein 4280.0 H Free T4 2.04 TSH 3rd Generation 1.11 06/01/18 06/01/18 11:39 16:07 WBC RBC Hgb Hct MCV MCH MCHC RDW Plt Count MPV Sodium Potassium Chloride Carbon Dioxide Anion Gap BUN Creatinine Est GFR ( Amer) Est GFR (Non-Af Amer) POC Glucose (mg/dL) 144 H 151 H Random Glucose Hemoglobin A1c Calcium Phosphorus Magnesium Total Bilirubin AST ALT Alkaline Phosphatase Total Protein Albumin Globulin Albumin/Globulin Ratio Triglycerides Cholesterol LDL Cholesterol Direct HDL Cholesterol Alpha Fetoprotein Free T4 TSH 3rd Generation Assessment & Plan - Assessment and Plan (Free Text) Assessment: 88 year old male with a past medical history significant for CAD s/p 8 HERSON, previous MD, HTN, HLD, systolic CHF (EF: 38%), DM2, prior tobacco use, ESDRAS, bladder cancer, paroxysmal atrial fibrillation and hepatitis C who presents with four days duration of dysarthria and left sided facial droop. Plan: -MRI Brain showed chronic lobar infarction versus posttraumatic cystic encephalomalacia at the right frontal lobe medial base and no acute intracranial findings -CT Head showed mild encephalomalacia at the right inferior frontal pole and mild chronic periventricular white matter ischemic changes. No acute intracranial abnormalities were noted. -Continue ASA and Lipitor -Continue PT, OT, and ST -Continue fall and aspiration precautions -Further recommendations as per Dr. Gonzalez Patient seen and case discussed with attending, Dr. Gonzalez. Herminio Jean PGY2 - Date & Time Date: 06/01/18 Time: 18:04
--- NOTE | 2018-06-02 00:25 | CON ---
DATE: 06/01/2018 REQUESTING PHYSICIAN: Dr. Ruiz. REASON FOR CONSULTATION: A possible TIA, history of atrial fibrillation, coronary artery disease. HISTORY OF PRESENT ILLNESS: This is an 88-year-old man, well known to us with a history of coronary artery disease, status post multivessel PCI in the past as well as paroxysmal atrial fibrillation, not on anticoagulant therapy because of recurrent gross hematuria several years ago. He was brought to emergency room by his family after several days of slurred speech. He refused to be brought to the emergency room for several days until he was seen by Dr. Monreal yesterday. He also apparently had some gait instability. He was seen on telemetry in the presence of his and two daughters. He states he currently feels improved and back to his baseline. According to the family, his speech has normalized as well. PAST MEDICAL HISTORY: His past history is notable for the problems mentioned above. He has undergone multivessel PCI for complex coronary artery disease. He has a history of congestive heart failure in the past. He also had bladder cancer and had recurrent hematuria with anticoagulant use in the past. He has a history of diabetes, chronic anemia, and hepatitis C. MEDICATIONS: His medications at home included aspirin, Januvia, Zocor, Carafate, Cardura, glipizide, metformin, Ventolin, DuoNeb, and Entresto. ALLERGIES: HE HAD A REACTION TO CODEINE AND VANCOMYCIN IN THE PAST. SOCIAL HISTORY: He is a former smoker. He is , lives with his . FAMILY HISTORY: Both parents are from age-related illness. REVIEW OF SYSTEMS: A 10-point review of systems is otherwise notable only for the problems mentioned above. PHYSICAL EXAMINATION: GENERAL: He is a very elderly man who appears comfortable at the present time. VITAL SIGNS: His blood pressure is 112/66 with pulse of 110, in atrial fibrillation; respirations are 14; he is afebrile. HEENT: Normocephalic, atraumatic. NECK: Supple. No JVD noted. CHEST: Bilateral scattered rhonchi heard. HEART: PMI displaced laterally with a soft systolic murmur at the low left sternal border and apex. ABDOMEN: Soft and nontender with normoactive bowel sounds. EXTREMITIES: No clubbing, cyanosis, edema. SKIN: Warm and dry. PSYCHIATRIC: Normal mood and affect. NEUROLOGIC: Alert and oriented x3. No gross motor or sensory deficits notable at this time. DIAGNOSTIC DATA: Potassium 3.7, BUN and creatinine 31 and 1.5. White count 3.9, hemoglobin and hematocrit 10.7 and 32.9 with a platelet count of 109,000. TSH 1.1. Electrocardiogram reveals atrial fibrillation with left bundle-branch block. Chest x-ray is pending. CT of the head shows mild encephalomalacia involving the right inferior frontal pole and mild chronic periventricular white matter ischemic changes. No clear evidence of acute infarct. IMPRESSION: 1. Apparent reversible ischemic neurologic deficit, clinically improved at the present time. 2. Chronic atrial fibrillation, not on anticoagulant therapy due to recurrent major hematuria in the past with chronic warfarin use. 3. Coronary artery disease, status post multivessel percutaneous coronary intervention, clinically stable. 4. Mitral regurgitation. 5. History of bladder cancer. RECOMMENDATIONS: An MRI is currently pending. As he has not had hematuria in the recent past, consideration could be given to initiation of Lovenox or heparin use. If he has no evidence of bleeding, consideration could be given to the resumption of Coumadin therapy or a newer oral anticoagulant. According to the patient, on his last cystoscopy, there was no evidence of recurrence of bladder tumors and no further intervention was performed at that time. If he does have recurrent hematuria, obviously anticoagulant therapy may not be possible. Continue risk factor control as advised. We will be happy to follow along through his hospital course as needed. Juan David Vincent MD
[2018-06-02 07:16] LABS: HEMOGLOBIN 10.6 g/dL (14.0-18.0); MEAN CELL VOLUME 101.5 fl (80.0-105.0); MEAN CORPUSCULAR HEMOGLOBIN 32.6 pg (25.0-35.0); MEAN CORPUSCULAR HGB CONC 32.1 g/dl (31.0-37.0); MEAN PLATELET VOLUME 10.6 fl (7.0-11.0); RBC 3.25 10^6/uL (3.5-6.1); RED CELL DISTRIBUTION WIDTH 14.8 % (11.5-14.5)
[2018-06-02] MEDS: Albuterol-Ipratrop 3 mg / 0.5 (3 ml) UD IH SCH ×2 (07:29→21:40)
[2018-06-02 07:36] LABS: ALBUMIN 3.6 g/dL (3.0-4.8); CALCIUM 9.2 mg/dL (8.4-10.5)
[2018-06-02] MEDS: SACUBITRIL 49mg/VALSARTAN 51mg tab PO SCH (09:32)
[2018-06-02] MEDS: Enoxaparin 100 mg Syringe SC SCH ×2 (09:32→23:46)
[2018-06-02] MEDS: Insulin Reg-LOW-Coverage SC SCH ×4 (09:34→21:54)
--- NOTE | 2018-06-02 10:03 | CP.PCM.CON ---
<Preston Marks - Last Filed: 06/02/18 18:58> History of Present Illness - History of Present Illness History of Present Illness: GI Consult Note for Dr. Mondragon Reason for Consultation: Elevated AFP, cirrhosis Patient is an 88 yo F with PMH of CAD s/p 8 stents, HTN, HLD, systolic CHF, ND, DM2, iron-deficiency anemia, paroxysmal a-fib, bladder CA, and hepatitis C (treated) presents to [facility] [place] as instructed by PMD due to dysarthria and facial droop 4 days prior to admission. CVA vs TIA workup ongoing per neurology. GI was consulted due to cirrhosis found on CT and elevated AFP. On admission, patient also complained of lower abdominal pain and distention, but has since subsided. Patient states that he has had minimal weight loss over the last 6 months. Patient denies skin changes, weakness, fatigue, CP, SOB, n/v/d, abdominal pain, fever, chills, GUDINO, dizziness, melena, or hematochezia. PMH: CAD s/p 8 stents, HTN, HLD, systolic CHF, ND, DM2, iron-deficiency anemia, paroxysmal a-fib, bladder CA, and hepatitis C (treated) Surg: Denied All: Codeine, mushroom, vancomycin SH: Former smoker, quit 30 years ago; denied EtOH and illicit drug use FHx: No GI history Medications reviewed as per [facility] Review of Systems - Review of Systems All systems: reviewed and no additional remarkable complaints except (12 point ROS reviewed and is negative other than what is stated in HPI.) Past Patient History - Infectious Disease Hx of Infectious Diseases: None - Tetanus Immunizations Tetanus Immunization: Unknown - Past Social History Smoking Status: Former Smoker - CARDIAC Hx Cardiac Disorders: Yes (CAD, prior ND,) Hx Congestive Heart Failure: Yes Hx Hypertension: Yes - PULMONARY Hx Respiratory Disorders: Yes (respiratory distress) Hx Bronchitis: Yes (Chronic) Hx Pneumonia: Yes - NEUROLOGICAL Hx Neurological Disorder: No - HEENT Hx HEENT Problems: Yes (eyeglasses) - RENAL Hx Chronic Kidney Disease: Yes Other/Comment: Bladder Ca remission - ENDOCRINE/METABOLIC Hx Diabetes Mellitus Type 1: Yes - HEMATOLOGICAL/ONCOLOGICAL Hx Blood Disorders: Yes (sepsis) Hx Anemia: Yes (iron deficiency) Hx Cancer: Yes (bladder dx 10 yrs ago) Hx Chemotherapy: No Hx Hepatitis C: Yes Other/Comment: iron infusions dr Alexander and b12 shots. cystos were every 6 months now once a year has appt sched with dr payne in june as f/u with bladder ca - INTEGUMENTARY Hx Dermatological Problems: Yes (red buttocks) - MUSCULOSKELETAL/RHEUMATOLOGICAL Hx Falls: No - GASTROINTESTINAL Hx Gastrointestinal Disorders: No (colon polyps) - GENITOURINARY/GYNECOLOGICAL Hx Genitourinary Disorders: No - PSYCHIATRIC Hx Substance Use: No - SURGICAL HISTORY Hx Cardiac Catheterization: Yes Hx Coronary Stent: Yes (x8 ptca) Other/Comment: tooth extraction 3 months ago, cysto turbt x 3 or 4 - ANESTHESIA Hx Anesthesia: Yes Hx Anesthesia Reactions: Yes (DIFF WAKING UP AFTER A PROCEDURE IN HOSPITAL) Hx Malignant Hyperthermia: No Meds Allergies/Adverse Reactions: Allergies Allergy/AdvReac Type Severity Reaction Status Date / Time codeine Allergy FATIGUE Verified 06/08/17 20:30 mushroom Allergy RASH Verified 06/08/17 20:30 vancomycin AdvReac RASH Verified 06/08/17 20:30 - Medications Medications: Current Medications Albuterol/Ipratropium (Duoneb 3 Mg/0.5 Mg (3 Ml) Ud) 3 ml IH BID [facility] Last Admin: 06/02/18 07:29 Dose: 3 ml Aspirin (Ecotrin) 81 mg PO DAILY [facility] Last Admin: 06/02/18 09:33 Dose: 81 mg Atorvastatin Calcium (Lipitor) 10 mg PO HS [facility] Last Admin: 06/01/18 21:50 Dose: 10 mg Doxazosin Mesylate (Cardura) 4 mg PO DAILY [facility] Last Admin: 06/02/18 09:33 Dose: 4 mg Enoxaparin Sodium (Lovenox) 90 mg SC Q12H [facility]; Protocol Last Admin: 06/02/18 09:32 Dose: 90 mg Folic Acid (Folic Acid) 1 mg PO DAILY [facility] Last Admin: 06/02/18 09:33 Dose: 1 mg Furosemide (Lasix) 40 mg PO DAILY [facility] Last Admin: 06/02/18 09:33 Dose: 40 mg Insulin Human Regular (Humulin R Low) 0 units SC ACHS [facility]; Protocol Last Admin: 06/02/18 09:34 Dose: Not Given Non-Formulary Medication (Mecobal/Levomefolat Ca/B6 Phos [Foltanx Tablet]) 2 mg PO DAILY [facility] Sacubitril/Valsartan (Entresto 49 Mg-51 Mg Tablet) 1 each PO DAILY [facility] Last Admin: 06/02/18 09:32 Dose: 1 each Sitagliptin Phosphate (Januvia) 50 mg PO DAILY [facility] Last Admin: 06/02/18 09:33 Dose: 50 mg Sucralfate (Carafate Tab) 1 gm PO TID [facility] Last Admin: 06/02/18 09:33 Dose: 1 gm Physical Exam - Constitutional Appears: No Acute Distress - Head Exam Head Exam: NORMAL INSPECTION - Eye Exam Eye Exam: Normal appearance - ENT Exam ENT Exam: Mucous Membranes Moist, Normal Exam - Neck Exam Neck exam: Positive for: Normal Inspection - Respiratory Exam Respiratory Exam: Clear to Auscultation Bilateral. absent: Rales, Rhonchi, Wheezes - Cardiovascular Exam Cardiovascular Exam: +S1, +S2. absent: Diastolic murmur, Gallop, Rubs, Systolic Murmur - GI/Abdominal Exam GI & Abdominal Exam: Distended, Soft. absent: Firm, Guarding, Mass, Pulsatile Mass, Rebound, Tenderness Additional comments: umbilical hernia - Extremities Exam Extremities exam: Positive for: normal inspection - Back Exam Back exam: NORMAL INSPECTION - Neurological Exam Neurological exam: Alert, Oriented x3 - Skin Skin Exam: Normal Color, Warm Results - Vital Signs Recent Vital Signs: Last Vital Signs Temp 98.2 F 06/02/18 05:42 Pulse 99 H 06/02/18 07:29 Resp 20 06/02/18 05:42 BP 137/85 06/02/18 09:33 Pulse Ox 98 06/02/18 05:42 - Labs Result Diagrams: 06/02/18 07:00 06/02/18 07:00 Labs: Laboratory Results - last 24 hr 06/01/18 06/01/18 06/01/18 08:15 09:16 09:18 WBC RBC Hgb Hct MCV MCH MCHC RDW Plt Count MPV Sodium Potassium Chloride Carbon Dioxide Anion Gap BUN Creatinine Est GFR ( Amer) Est GFR (Non-Af Amer) POC Glucose (mg/dL) Random Glucose Hemoglobin A1c 5.4 Calcium Phosphorus Magnesium Total Bilirubin AST ALT Alkaline Phosphatase Total Protein Albumin Globulin Albumin/Globulin Ratio Alpha Fetoprotein 4280.0 H Free T4 2.04 TSH 3rd Generation 1.11 06/01/18 06/01/18 06/01/18 11:39 16:07 21:45 WBC RBC Hgb Hct MCV MCH MCHC RDW Plt Count MPV Sodium Potassium Chloride Carbon Dioxide Anion Gap BUN Creatinine Est GFR ( Amer) Est GFR (Non-Af Amer) POC Glucose (mg/dL) 144 H 151 H 193 H Random Glucose Hemoglobin A1c Calcium Phosphorus Magnesium Total Bilirubin AST ALT Alkaline Phosphatase Total Protein Albumin Globulin Albumin/Globulin Ratio Alpha Fetoprotein Free T4 TSH 3rd Generation 06/02/18 06/02/18 06/02/18 07:00 07:00 07:31 WBC 4.0 L RBC 3.25 L Hgb 10.6 L Hct 33.0 L MCV 101.5 MCH 32.6 MCHC 32.1 RDW 14.8 H Plt Count 107 L MPV 10.6 Sodium 140 Potassium 3.4 L Chloride 104 Carbon Dioxide 28 Anion Gap 11 BUN 30 H Creatinine 1.4 Est GFR ( Amer) 58 Est GFR (Non-Af Amer) 48 POC Glucose (mg/dL) 138 H Random Glucose 126 H Hemoglobin A1c Calcium 9.2 Phosphorus 3.5 Magnesium 1.8 Total Bilirubin 0.8 AST 53 ALT 39 Alkaline Phosphatase 102 Total Protein 7.1 Albumin 3.6 Globulin 3.4 Albumin/Globulin Ratio 1.0 L Alpha Fetoprotein Free T4 TSH 3rd Generation Assessment & Plan - Assessment and Plan (Free Text) Assessment: 88 yo M with PMH CAD s/p 8 stents, HTN, HLD, systolic CHF, ND, DM2, iron- deficiency anemia, paroxysmal a-fib, bladder CA, and hepatitis C (treated) presents to [facility] [place] for possible TIA vs CVA. GI consulted due to elevated AFP and cirrhosis. Abdomen/Pelvis CT reviewed, showed nodular cirrhotic liver, hep atomegaly, splenomegaly, possible posterior right liver lobe mass, chronic pancreatitis. 1. Cirrhosis 2. Elevated AFP 3. TIA vs CVA 4. Atrial fibrillation 5. H/o Hepatitis C, treated 6. H/o Bladder CA 7. H/o Iron deficiency anemia Plan: - Abdomen duplex showed acute extrahepatic portal vein thrombosis - Therapeutic Lovenox already ordered in setting of A-fib - Abdomen US ordered - Abdomen MRI without contrast ordered Patient seen and discussed in detail with Dr. Mondragon. Tyree Marks, DO PGY2 <Rachelle Mondragon V - Last Filed: 06/02/18 23:59> Meds - Medications Medications: Current Medications Albuterol/Ipratropium (Duoneb 3 Mg/0.5 Mg (3 Ml) Ud) 3 ml IH BID [facility] Last Admin: 06/02/18 21:40 Dose: 3 ml Aspirin (Ecotrin) 81 mg PO DAILY [facility] Last Admin: 06/02/18 09:33 Dose: 81 mg Atorvastatin Calcium (Lipitor) 10 mg PO HS [facility] Last Admin: 06/02/18 21:54 Dose: 10 mg Doxazosin Mesylate (Cardura) 4 mg PO DAILY [facility] Last Admin: 06/02/18 09:33 Dose: 4 mg Enoxaparin Sodium (Lovenox) 90 mg SC Q12H [facility]; Protocol Last Admin: 06/02/18 23:46 Dose: 90 mg Folic Acid (Folic Acid) 1 mg PO DAILY [facility] Last Admin: 06/02/18 09:33 Dose: 1 mg Furosemide (Lasix) 40 mg PO DAILY [facility] Last Admin: 06/02/18 09:33 Dose: 40 mg Insulin Human Regular (Humulin R Low) 0 units SC ACHS [facility]; Protocol Last Admin: 06/02/18 21:54 Dose: Not Given Non-Formulary Medication (Mecobal/Levomefolat Ca/B6 Phos [Foltanx Tablet]) 2 mg PO DAILY [facility] Last Admin: 06/02/18 17:44 Dose: Not Given Sacubitril/Valsartan (Entresto 49 Mg-51 Mg Tablet) 1 each PO DAILY [facility] Last Admin: 06/02/18 09:32 Dose: 1 each Sitagliptin Phosphate (Januvia) 50 mg PO DAILY [facility] Last Admin: 06/02/18 09:33 Dose: 50 mg Sucralfate (Carafate Tab) 1 gm PO TID [facility] Last Admin: 06/02/18 17:44 Dose: 1 gm Results - Vital Signs Recent Vital Signs: Last Vital Signs Temp 98.0 F 06/02/18 23:35 Pulse 107 H 06/02/18 23:35 Resp 21 06/02/18 23:35 BP 121/73 06/02/18 23:35 Pulse Ox 97 06/02/18 23:35 - Labs Result Diagrams: 06/02/18 07:00 06/02/18 07:00 Labs: Laboratory Results - last 24 hr 06/02/18 06/02/18 06/02/18 07:00 07:00 07:31 WBC 4.0 L RBC 3.25 L Hgb 10.6 L Hct 33.0 L MCV 101.5 MCH 32.6 MCHC 32.1 RDW 14.8 H Plt Count 107 L MPV 10.6 Sodium 140 Potassium 3.4 L Chloride 104 Carbon Dioxide 28 Anion Gap 11 BUN 30 H Creatinine 1.4 Est GFR ( Amer) 58 Est GFR (Non-Af Amer) 48 POC Glucose (mg/dL) 138 H Random Glucose 126 H Calcium 9.2 Phosphorus 3.5 Magnesium 1.8 Total Bilirubin 0.8 AST 53 ALT 39 Alkaline Phosphatase 102 Total Protein 7.1 Albumin 3.6 Globulin 3.4 Albumin/Globulin Ratio 1.0 L 06/02/18 06/02/18 06/02/18 11:46 17:04 21:24 WBC RBC Hgb Hct MCV MCH MCHC RDW Plt Count MPV Sodium Potassium Chloride Carbon Dioxide Anion Gap BUN Creatinine Est GFR ( Amer) Est GFR (Non-Af Amer) POC Glucose (mg/dL) 211 H 133 H 201 H Random Glucose Calcium Phosphorus Magnesium Total Bilirubin AST ALT Alkaline Phosphatase Total Protein Albumin Globulin Albumin/Globulin Ratio Attending/Attestation - Attestation I have personally seen and examined this patient.: Yes I have fully participated in the care of the patient.: Yes I have reviewed all pertinent clinical information: Yes Notes (Text): This is an addendum to GI consult report dictated by the Risk Management Consultant. The patient was seen and evaluated earlier. Medical records, lab studies, imagings were reviewed. Last 24 hours events reviewed. Agreed with the above treatment plan as outlined in Risk Management Consultant 's notes with the addition of the following 06/02/18 23:59
[2018-06-02] MEDS ORDERED: Potassium Chloride 20 mEq ER Tab PO ONE (10:14)
--- NOTE | 2018-06-02 10:21 | CP.PCM.PN ---
Subjective - Date & Time of Evaluation Date of Evaluation: 06/02/18 Time of Evaluation: 09:00 - Subjective Subjective: Neurology Progress note Patient seen and examined at bedside. no acute distress. Patient denies any headache, dizziness, slurred speech, weakness. Per family at bedside states patient is back to baseline. Objective - Vital Signs/Intake and Output Vital Signs (last 24 hours): Temp Pulse Resp BP Pulse Ox 98.2 F 99 H 20 137/85 98 06/02/18 05:42 06/02/18 07:29 06/02/18 05:42 06/02/18 09:33 06/02/18 05:42 Intake and Output: 06/02/18 06/02/18 06:59 18:59 Intake Total 600 Balance 600 - Medications Medications: Current Medications Albuterol/Ipratropium (Duoneb 3 Mg/0.5 Mg (3 Ml) Ud) 3 ml IH BID [facility] Last Admin: 06/02/18 07:29 Dose: 3 ml Aspirin (Ecotrin) 81 mg PO DAILY [facility] Last Admin: 06/02/18 09:33 Dose: 81 mg Atorvastatin Calcium (Lipitor) 10 mg PO HS [facility] Last Admin: 06/01/18 21:50 Dose: 10 mg Doxazosin Mesylate (Cardura) 4 mg PO DAILY [facility] Last Admin: 06/02/18 09:33 Dose: 4 mg Enoxaparin Sodium (Lovenox) 90 mg SC Q12H [facility]; Protocol Last Admin: 06/02/18 09:32 Dose: 90 mg Folic Acid (Folic Acid) 1 mg PO DAILY [facility] Last Admin: 06/02/18 09:33 Dose: 1 mg Furosemide (Lasix) 40 mg PO DAILY [facility] Last Admin: 06/02/18 09:33 Dose: 40 mg Insulin Human Regular (Humulin R Low) 0 units SC ACHS [facility]; Protocol Last Admin: 06/02/18 09:34 Dose: Not Given Non-Formulary Medication (Mecobal/Levomefolat Ca/B6 Phos [Foltanx Tablet]) 2 mg PO DAILY [facility] Sacubitril/Valsartan (Entresto 49 Mg-51 Mg Tablet) 1 each PO DAILY [facility] Last Admin: 06/02/18 09:32 Dose: 1 each Sitagliptin Phosphate (Januvia) 50 mg PO DAILY [facility] Last Admin: 06/02/18 09:33 Dose: 50 mg Sucralfate (Carafate Tab) 1 gm PO TID [facility] Last Admin: 06/02/18 09:33 Dose: 1 gm - Labs Labs: 06/02/18 07:00 06/02/18 07:00 PT 13.1 SECONDS (9.4-12.5) H 05/31/18 10:50 INR 1.16 05/31/18 10:50 APTT 26.8 Seconds (26.9-38.3) L 05/31/18 10:50 - Additional Findings Additional findings: - Constitutional Appears: Non-toxic, No Acute Distress - Head Exam Head Exam: ATRAUMATIC, NORMOCEPHALIC - Eye Exam Eye Exam: EOMI, Normal appearance, PERRL. absent: Conjunctival injection, Nystagmus, Periorbital swelling, Periorbital tenderness, Scleral icterus Pupil Exam: NORMAL ACCOMODATION, PERRL. - ENT Exam ENT Exam: Mucous Membranes Moist - Neck Exam Neck exam: Positive for: Full Rom, Normal Inspection - Respiratory Exam Respiratory Exam: Clear to Auscultation Bilateral, NORMAL BREATHING PATTERN - Cardiovascular Exam Cardiovascular Exam: REGULAR RHYTHM - GI/Abdominal Exam GI & Abdominal Exam: Normal Bowel Sounds, Soft. absent: Tenderness - Neurological Exam Neurological exam: Alert, CN II-XII Intact, Oriented x3, Reflexes Normal - Expanded Neurological Exam Expanded Patient oriented to: person, place, time Cranial nerves: EOM's Intact: Normal, Facial Palsey w/Forehead Movement: Normal, Facial Palsey w/o Forehead Movement: Normal, Facial Sensation: Normal, Gag Reflex: Normal, Nystagmus: Normal, Tongue Deviation: Normal Cerebellar Function: Finger to Nose: Normal Upper motor neuron: Te Neglect: Normal, Pronator Drift: Normal, Sensory Extinction: Normal Neuro motor strength exam: Left Upper Extremity: 4, Right Upper Extremity: 4, Left Lower Extremity: 4, Right Lower Extremity: 4 Coma Scale Eye Opening: SPONTANEOUS Coma Scale Motor Response: OBEYS COMMANDS Coma Scale Verbal: Oriented Coma Scale Total: 15 - Psychiatric Exam Psychiatric exam: Normal Affect, Normal Mood - Skin Skin Exam: Dry, Intact, Normal Color, Warm Assessment and Plan - Assessment and Plan (Free Text) Assessment: 88 year old male with a past medical history significant for CAD s/p 8 HERSON, previous [place], HTN, HLD, systolic CHF (EF: 38%), DM2, prior tobacco use, ESDRAS, bladder cancer, paroxysmal atrial fibrillation and hepatitis C who presents with four days duration of dysarthria and left sided facial droop due to TIA. Plan: -MRI Brain showed chronic lobar infarction versus posttraumatic cystic encephalomalacia at the right frontal lobe medial base and no acute intracranial findings -CT Head showed mild encephalomalacia at the right inferior frontal pole and mild chronic periventricular white matter ischemic changes. No acute intracranial abnormalities were noted. -Continue Lipitor - patient will need to be started on anticoagulation however due to patients history of bleeds if he can not be anticoagulated consider watchmen device -Continue PT, OT, -Continue fall and aspiration precautions -Further recommendations as per Dr. Molina Patient seen and case discussed with attending, Dr. Molina
--- NOTE | 2018-06-02 11:22 | PN ---
DATE: 06/02/2018 SUBJECTIVE: The patient is seen sitting in chair on telemetry, he is currently comfortable. He denies any weakness and states that his speech is normal. He is anxious to go home. CURRENT MEDICATIONS: Include Carafate, Cardura, DuoNeb inhaler, Ecotrin, Entresto, folic acid, Januvia, Lasix, Lipitor, Lovenox. OBJECTIVE: GENERAL: He is a very elderly man who appears comfortable at rest. VITAL SIGNS: His blood pressure is 136/86 with pulse of 80 in atrial fibrillation with occasional PVCs, respirations of 14. He is afebrile. HEENT: No JVD. CHEST: Few scattered rhonchi heard. HEART: PMI displaced laterally with soft systolic murmur at the lower left sternal border and apex. ABDOMEN: Soft, nontender with bowel sounds. EXTREMITIES: No edema. DIAGNOSTIC DATA: Potassium 3.4, BUN and creatinine 30 and 1.4, glucose 126. White count 4.0, hemoglobin and hematocrit 10.6 and 33.0, platelet count 107,000. Brain MRI reportedly showed no evidence of acute infarction. Echocardiogram revealed mildly dilated left ventricle with moderately reduced LV systolic dysfunction, moderate mitral regurgitation and moderate tricuspid regurgitation. IMPRESSION: 1. Recent reversible ischemic neurologic deficit, clinically improved. 2. Chronic atrial fibrillation, not currently on anticoagulant therapy because of recurrent large degree of hematuria in the past while on warfarin with active bladder cancer. 3. Coronary disease status post multivessel percutaneous coronary intervention, clinically stable. 4. Moderate mitral and tricuspid regurgitation. 5. History of bladder cancer. 6. Thrombocytopenia. RECOMMENDATIONS: From cardiac standpoint, his current medications should continue. Discussion will be have with the family and Dr. Coats, Dr. beckman regarding the risk benefit ratio resumption of anticoagulant therapy given his recent neurologic symptoms. Obviously the risk of stroke is fairly high given his CHADS-VASc score of 7. He likely has a recurrent annual of stroke risk of approximately 10% without drug therapy. The presence of mild thrombocytopenia will need to be factored into this decision making as well. We will continue to follow and make further recommendations as needed and arrange for outpatient followup as well. Juan David Vincent MD MTDD
--- NOTE | 2018-06-02 13:06 | CP.PCM.PN ---
<Karen Husain - Last Filed: 06/02/18 14:48> Subjective - Date & Time of Evaluation Date of Evaluation: 06/02/18 Time of Evaluation: 07:15 - Subjective Subjective: Pgy3 Medicine progress note for Dr. Coats Patient seen and examined at bedside. As per nursing no acute events overnight. Patient resting comfortably and had no acute complaints of headache, dizziness, fever, chills, chest pain, palpitations, SOB, cough, abd pain, nausea, vomiting, bowel/bladder complaints, pain in his legs b/l. Objective - Vital Signs/Intake and Output Vital Signs (last 24 hours): Temp Pulse Resp BP Pulse Ox 98.6 F 72 18 112/69 98 06/02/18 12:00 06/02/18 12:00 06/02/18 12:00 06/02/18 12:00 06/02/18 05:42 Intake and Output: 06/02/18 06/02/18 06:59 18:59 Intake Total 600 Balance 600 - Medications Medications: Current Medications Albuterol/Ipratropium (Duoneb 3 Mg/0.5 Mg (3 Ml) Ud) 3 ml IH BID [facility] Last Admin: 06/02/18 07:29 Dose: 3 ml Aspirin (Ecotrin) 81 mg PO DAILY [facility] Last Admin: 06/02/18 09:33 Dose: 81 mg Atorvastatin Calcium (Lipitor) 10 mg PO HS [facility] Last Admin: 06/01/18 21:50 Dose: 10 mg Doxazosin Mesylate (Cardura) 4 mg PO DAILY [facility] Last Admin: 06/02/18 09:33 Dose: 4 mg Enoxaparin Sodium (Lovenox) 90 mg SC Q12H [facility]; Protocol Last Admin: 06/02/18 09:32 Dose: 90 mg Folic Acid (Folic Acid) 1 mg PO DAILY [facility] Last Admin: 06/02/18 09:33 Dose: 1 mg Furosemide (Lasix) 40 mg PO DAILY [facility] Last Admin: 06/02/18 09:33 Dose: 40 mg Insulin Human Regular (Humulin R Low) 0 units SC ACHS [facility]; Protocol Last Admin: 06/02/18 12:17 Dose: 2 unit Non-Formulary Medication (Mecobal/Levomefolat Ca/B6 Phos [Foltanx Tablet]) 2 mg PO DAILY [facility] Sacubitril/Valsartan (Entresto 49 Mg-51 Mg Tablet) 1 each PO DAILY [facility] Last Admin: 06/02/18 09:32 Dose: 1 each Sitagliptin Phosphate (Januvia) 50 mg PO DAILY [facility] Last Admin: 06/02/18 09:33 Dose: 50 mg Sucralfate (Carafate Tab) 1 gm PO TID [facility] Last Admin: 06/02/18 09:33 Dose: 1 gm - Labs Labs: 06/02/18 07:00 06/02/18 07:00 PT 13.1 SECONDS (9.4-12.5) H 05/31/18 10:50 INR 1.16 05/31/18 10:50 APTT 26.8 Seconds (26.9-38.3) L 05/31/18 10:50 - Constitutional Appears: Non-toxic, No Acute Distress - Head Exam Head Exam: ATRAUMATIC, NORMAL INSPECTION, NORMOCEPHALIC - Eye Exam Eye Exam: EOMI, Normal appearance, PERRL. absent: Conjunctival injection, Scleral icterus - ENT Exam ENT Exam: Mucous Membranes Moist - Neck Exam Neck Exam: Full ROM. absent: Lymphadenopathy - Respiratory Exam Respiratory Exam: Clear to Ausculation Bilateral, NORMAL BREATHING PATTERN. absent: Accessory Muscle Use, Rales, Rhonchi, Wheezes, Respiratory Distress - Cardiovascular Exam Cardiovascular Exam: Irregular Rhythm, +S1, +S2 - GI/Abdominal Exam GI & Abdominal Exam: Soft, Normal Bowel Sounds. absent: Firm, Guarding, Rigid, Tenderness Additional comments: umbilical hernia noted - Extremities Exam Extremities Exam: Normal Capillary Refill, Normal Inspection. absent: Pedal Edema - Back Exam Back Exam: NORMAL INSPECTION. absent: rash noted - Neurological Exam Neurological Exam: Alert, Awake, CN II-XII Intact, Oriented x3 - Psychiatric Exam Psychiatric exam: Normal Affect, Normal Mood - Skin Skin Exam: Dry, Intact, Normal Color, Warm Assessment and Plan - Assessment and Plan (Free Text) Assessment: - TIA - Paroxysmal Afib - Abdominal distention - CAD s/p 8 stents - HTN - HLD - Systolic CHF - DM2 - ESDRAS - Bladder Ca - Hep C - Prior tobacco abuse Plan: Patient's vitals, blood work, and imaging reviewed in chart. CT Head showed mild encephalomalacia at the right inferior frontal pole and mild chronic periventricular white matter ischemic changes. No acute intracranial abnormalities were noted. Brain MRI showed chronic lobar infarct vs posttraumatic cystic encephalomalacia at R frontal lobe medial base and no acute intracranial findings. 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 Daughter reports she has noticed some mood changes and that the slurred speech was more pronounced over the weekend prior to admission although patient "mumbles" at baseline. Patient started on therapeutic Lovenox for paroxysmal Afib. Will monitor closely for any bleeding. Patient CHADS-VASc 7. Neuro recommends Watchman if patient cannot be anticoagulated; I spoke with patient's who was at bedside and with patient who would like to try anticoagulation first. Will continue ASA and Lipitor. CT Abd pelvis reviewed in light of abdominal pain and distention. AFP elevated 4280. GI on board. Will f/u Abd U/S. Patient continued on Entresto and Lasix for systolic CHF. Continue management of HTN and DM2. Patient's family does not want patient to go to TCU and wants him to go home and have outpatient physical therapy. Patient agrees with plan. Will continue to monitor at this time. Continue PT, OT, and ST. Continue fall and aspiration precautions Discussed with Dr. Pauly Husain PGY3 <Jamarcus Coats S - Last Filed: 06/02/18 19:12> Objective - Vital Signs/Intake and Output Vital Signs (last 24 hours): Temp Pulse Resp BP Pulse Ox 98.4 F 79 18 141/60 98 06/02/18 18:00 06/02/18 18:00 06/02/18 18:00 06/02/18 18:00 06/02/18 05:42 Intake and Output: 06/02/18 06/03/18 18:59 06:59 Intake Total 240 Output Total 700 Balance -460 - Medications Medications: Current Medications Albuterol/Ipratropium (Duoneb 3 Mg/0.5 Mg (3 Ml) Ud) 3 ml IH BID [facility] Last Admin: 06/02/18 07:29 Dose: 3 ml Aspirin (Ecotrin) 81 mg PO DAILY [facility] Last Admin: 06/02/18 09:33 Dose: 81 mg Atorvastatin Calcium (Lipitor) 10 mg PO HS [facility] Last Admin: 06/01/18 21:50 Dose: 10 mg Doxazosin Mesylate (Cardura) 4 mg PO DAILY [facility] Last Admin: 06/02/18 09:33 Dose: 4 mg Enoxaparin Sodium (Lovenox) 90 mg SC Q12H [facility]; Protocol Last Admin: 06/02/18 09:32 Dose: 90 mg Folic Acid (Folic Acid) 1 mg PO DAILY [facility] Last Admin: 06/02/18 09:33 Dose: 1 mg Furosemide (Lasix) 40 mg PO DAILY [facility] Last Admin: 06/02/18 09:33 Dose: 40 mg Insulin Human Regular (Humulin R Low) 0 units SC ACHS [facility]; Protocol Last Admin: 06/02/18 17:44 Dose: 2 unit Non-Formulary Medication (Mecobal/Levomefolat Ca/B6 Phos [Foltanx Tablet]) 2 mg PO DAILY [facility] Last Admin: 06/02/18 17:44 Dose: Not Given Sacubitril/Valsartan (Entresto 49 Mg-51 Mg Tablet) 1 each PO DAILY [facility] Last Admin: 06/02/18 09:32 Dose: 1 each Sitagliptin Phosphate (Januvia) 50 mg PO DAILY [facility] Last Admin: 06/02/18 09:33 Dose: 50 mg Sucralfate (Carafate Tab) 1 gm PO TID [facility] Last Admin: 06/02/18 17:44 Dose: 1 gm - Labs Labs: 06/02/18 07:00 06/02/18 07:00 PT 13.1 SECONDS (9.4-12.5) H 05/31/18 10:50 INR 1.16 05/31/18 10:50 APTT 26.8 Seconds (26.9-38.3) L 05/31/18 10:50 Assessment and Plan - Assessment and Plan (Free Text) Plan: Pt seen and examined by me. I have reviewed the note of the medical office representative and I agree with it. I have discussed the assessment and plan with the resident. I have reviewed the medications and the last labs. Pt with TIA that has improved. A fib is controlled. Pt will need anticoagulation. Pt is on ASA for CAD. Cardiology following. On Lipitor for TIA. Dm-2 controlled with Insulin sliding scale. Pt and family does not want to go to TCU. Will plan to D/C.
[2018-06-02] MEDS: MECOBAL PO SCH (17:44)
[2018-06-02] MEDS: B6 PHOS PO SCH (17:44)
[2018-06-02] MEDS: LEVOMEFOLAT CA PO SCH (17:44)
--- NOTE | 2018-06-02 18:23 | US ---
PROCEDURE: Portal vein duplex ultrasound. CLINICAL HISTORY: Cirrhosis. Deteriorating liver function. Evaluate for portal vein thrombosis. PHYSICIAN(S): Flex Hilario M.D. FINDINGS: The exam is very limited by body habitus and bowel gas There is acute thrombosis of the extrahepatic portal vein. The hepatic artery is hypertrophied. Limited images of the central patent veins are patent. The liver is irregular and heterogeneous in appearance, consistent with cirrhosis. The spleen is enlarged. There is a moderate amount of ascites in the upper abdomen. IMPRESSION: 1. Acute extrahepatic portal vein thrombosis
[2018-06-03 06:44] LABS: HEMOGLOBIN 10.5 g/dL (14.0-18.0); MEAN CELL VOLUME 102.6 fl (80.0-105.0); MEAN CORPUSCULAR HEMOGLOBIN 33.5 pg (25.0-35.0); MEAN CORPUSCULAR HGB CONC 32.7 g/dl (31.0-37.0); MEAN PLATELET VOLUME 11.4 fl (7.0-11.0); RBC 3.13 10^6/uL (3.5-6.1); WHITE BLOOD COUNT 3.6 10^3/uL (4.5-11.0)
[2018-06-03 07:26] LABS: ALB/GLOB RATIO 1.1 (1.1-1.8); ALBUMIN 3.6 g/dL (3.0-4.8); CALCIUM 9.2 mg/dL (8.4-10.5)
[2018-06-03] MEDS: Albuterol-Ipratrop 3 mg / 0.5 (3 ml) UD IH SCH ×2 (07:53→19:28)
[2018-06-03] MEDS: Enoxaparin 100 mg Syringe SC SCH (08:53)
[2018-06-03] MEDS: Insulin Reg-LOW-Coverage SC SCH ×4 (08:54→21:39)
--- NOTE | 2018-06-03 09:14 | CP.PCM.PN ---
<RodrigueKaren warren - Last Filed: 06/03/18 15:24> Subjective - Date & Time of Evaluation Date of Evaluation: 06/03/18 Time of Evaluation: 07:15 - Subjective Subjective: Pgy3 Medicine progress note for Dr. Coats Patient seen and examined at bedside. As per nursing patient complained of some mild abdominal pain overnight. This AM he was comfortable and denied any fever, chills, headache, dizziness, chest pain, palpitations, SOB, cough, nausea, vomiting, bowel/bladder complaints, pain/swelling in his legs b/l. Patient denies any blood in his stool, melena, hematuria. Objective - Vital Signs/Intake and Output Vital Signs (last 24 hours): Temp Pulse Resp BP Pulse Ox 97.8 F 100 H 20 108/66 97 06/03/18 06:00 06/03/18 06:00 06/03/18 06:00 06/03/18 06:00 06/03/18 07:52 Intake and Output: 06/03/18 06/03/18 06:59 18:59 Intake Total 360 Output Total 275 Balance 85 - Medications Medications: Current Medications Albuterol/Ipratropium (Duoneb 3 Mg/0.5 Mg (3 Ml) Ud) 3 ml IH BID [facility] Last Admin: 06/03/18 07:53 Dose: 3 ml Aspirin (Ecotrin) 81 mg PO DAILY [facility] Last Admin: 06/02/18 09:33 Dose: 81 mg Atorvastatin Calcium (Lipitor) 10 mg PO HS [facility] Last Admin: 06/02/18 21:54 Dose: 10 mg Doxazosin Mesylate (Cardura) 4 mg PO DAILY [facility] Last Admin: 06/02/18 09:33 Dose: 4 mg Enoxaparin Sodium (Lovenox) 90 mg SC Q12H [facility]; Protocol Last Admin: 06/03/18 08:53 Dose: 90 mg Folic Acid (Folic Acid) 1 mg PO DAILY [facility] Last Admin: 06/02/18 09:33 Dose: 1 mg Furosemide (Lasix) 40 mg PO DAILY [facility] Last Admin: 06/02/18 09:33 Dose: 40 mg Insulin Human Regular (Humulin R Low) 0 units SC ACHS [facility]; Protocol Last Admin: 06/03/18 08:54 Dose: Not Given Non-Formulary Medication (Mecobal/Levomefolat Ca/B6 Phos [Foltanx Tablet]) 2 mg PO DAILY [facility] Last Admin: 06/02/18 17:44 Dose: Not Given Sacubitril/Valsartan (Entresto 49 Mg-51 Mg Tablet) 1 each PO DAILY [facility] Last Admin: 06/02/18 09:32 Dose: 1 each Sitagliptin Phosphate (Januvia) 50 mg PO DAILY [facility] Last Admin: 06/02/18 09:33 Dose: 50 mg Sucralfate (Carafate Tab) 1 gm PO TID [facility] Last Admin: 06/02/18 17:44 Dose: 1 gm - Labs Labs: 06/03/18 06:00 06/03/18 06:00 PT 13.1 SECONDS (9.4-12.5) H 05/31/18 10:50 INR 1.16 05/31/18 10:50 APTT 26.8 Seconds (26.9-38.3) L 05/31/18 10:50 - Additional Findings Additional findings: - Constitutional Appears: Non-toxic, No Acute Distress - Head Exam Head Exam: ATRAUMATIC, NORMAL INSPECTION, NORMOCEPHALIC - Eye Exam Eye Exam: EOMI, Normal appearance, PERRL. absent: Conjunctival injection, Scleral icterus - ENT Exam ENT Exam: Mucous Membranes Moist - Neck Exam Neck Exam: Full ROM. absent: Lymphadenopathy - Respiratory Exam Respiratory Exam: Clear to Ausculation Bilateral, NORMAL BREATHING PATTERN. ab sent: Accessory Muscle Use, Rales, Rhonchi, Wheezes, Respiratory Distress - Cardiovascular Exam Cardiovascular Exam: Irregular Rhythm, +S1, +S2 - GI/Abdominal Exam GI & Abdominal Exam: Distended, Soft, Normal Bowel Sounds. absent: Firm, Guarding, Rigid, Tenderness Additional comments: umbilical hernia noted - Extremities Exam Extremities Exam: Normal Capillary Refill, Normal Inspection. absent: Pedal Edema - Back Exam Back Exam: NORMAL INSPECTION. absent: rash noted - Neurological Exam Neurological Exam: Alert, Awake, CN II-XII Intact, Oriented x3 - Psychiatric Exam Psychiatric exam: Normal Affect, Normal Mood - Skin Skin Exam: Dry, Intact, Normal Color, Warm Assessment and Plan - Assessment and Plan (Free Text) Assessment: - Portal vein thrombosis - TIA - Paroxysmal Afib - Hepatic cirrhosis - CAD s/p 8 stents - HTN - HLD - Systolic CHF - DM2 - ESDRAS - Bladder Ca - Hep C - Prior tobacco abuse Plan: Patient's vitals, blood work, and imaging reviewed in chart. Abd u/s revealed acute extrahepatic portal vein thrombosis; hepatic cirrhosis, generalized ascites. MRI abdomen ordered by GI- will f/u. CT Abd pelvis reviewed in light of abdominal pain and distention. AFP elevated 4280. GI on board. Therapeutic Lovenox discontinued and patient on Pradaxa as per Cardio at this time. I had a long conversation with patient's daughter Iva regarding the benefits vs risks of anticoagulation in light of patient's portal vein thrombus, Afib, hx of CVA, and hx of GI/ bleed. Informed and consensual decision was made with patient and family about starting patient on anticoagulation at this time. Heme-Onc also consulted- will f/u reccs. CT Head showed mild encephalomalacia at the right inferior frontal pole and mild chronic periventricular white matter ischemic changes. No acute intracranial abnormalities were noted. Brain MRI showed chronic lobar infarct vs posttraumat ic cystic encephalomalacia at R frontal lobe medial base and no acute intracranial findings. 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 Daughter reports she has noticed some mood changes and that the slurred speech was more pronounced over the weekend prior to admission although patient "mumbles" at baseline. Patient CHADS-VASc 7. Will continue ASA and Lipitor. Patient continued on Entresto and Lasix for systolic CHF. Continue management of HTN and DM2. Patient's family does not want patient to go to TCU and wants him to go home and have outpatient physical therapy. Patient agrees with plan. Will continue to monitor at this time. Continue PT, OT, and ST. Continue fall and aspiration precautions. Will monitor closely for any bleeding. Patient has one dose Xanax ordered prior to getting MRI. Discussed with Dr. Pauly Husain PGY3 <Jamarcus Coats S - Last Filed: 06/03/18 17:21> Objective - Vital Signs/Intake and Output Vital Signs (last 24 hours): Temp Pulse Resp BP Pulse Ox 97.8 F 81 18 109/63 97 06/03/18 12:00 06/03/18 12:00 06/03/18 12:00 06/03/18 12:00 06/03/18 07:52 Intake and Output: 06/03/18 06/03/18 06:59 18:59 Intake Total 360 900 Output Total 275 600 Balance 85 300 - Medications Medications: Current Medications Albuterol/Ipratropium (Duoneb 3 Mg/0.5 Mg (3 Ml) Ud) 3 ml IH BID [facility] Last Admin: 06/03/18 07:53 Dose: 3 ml Alprazolam (Xanax) 0.25 mg PO DAILY [facility]; Protocol PRN Reason: Anxiety Stop: 06/10/18 10:48 Aspirin (Ecotrin) 81 mg PO DAILY [facility] Last Admin: 06/03/18 09:42 Dose: 81 mg Atorvastatin Calcium (Lipitor) 10 mg PO HS [facility] Last Admin: 06/02/18 21:54 Dose: 10 mg Dabigatran (Pradaxa) 150 mg PO BID [facility]; Protocol Doxazosin Mesylate (Cardura) 4 mg PO DAILY [facility] Last Admin: 06/03/18 09:41 Dose: 4 mg Folic Acid (Folic Acid) 1 mg PO DAILY [facility] Last Admin: 06/03/18 09:42 Dose: 1 mg Furosemide (Lasix) 20 mg IVP Q12 [facility] Last Admin: 06/03/18 11:45 Dose: 20 mg Insulin Human Regular (Humulin R Low) 0 units SC [facility]; Protocol Last Admin: 06/03/18 11:45 Dose: 2 unit Non-Formulary Medication (Mecobal/Levomefolat Ca/B6 Phos [Foltanx Tablet]) 2 mg PO DAILY [facility] Last Admin: 06/03/18 09:42 Dose: Not Given Sacubitril/Valsartan (Entresto 49 Mg-51 Mg Tablet) 1 each PO DAILY [facility] Last Admin: 06/03/18 09:42 Dose: 1 each Sitagliptin Phosphate (Januvia) 50 mg PO DAILY [facility] Last Admin: 06/03/18 09:42 Dose: 50 mg Sucralfate (Carafate Tab) 1 gm PO TID [facility] Last Admin: 06/03/18 13:57 Dose: 1 gm - Labs Labs: 06/03/18 06:00 06/03/18 06:00 PT 13.1 SECONDS (9.4-12.5) H 05/31/18 10:50 INR 1.16 05/31/18 10:50 APTT 26.8 Seconds (26.9-38.3) L 05/31/18 10:50 Assessment and Plan - Assessment and Plan (Free Text) Plan: Patient was seen and examined by. I have reviewed the note of the medical oncologist and have gone over the plann of care. I agreee with the not. I have reviewed the medicaitons and the last labs. Pt with Portal vein thrombosis. I spoke to daughter about the anticoagulation and the risk of bleeding. Pt has A fib and will need anticoagulation. The pt does have a bleeding history in the past. Will get consult with Dr Alexander. MRI of head was reviewed. I spoke to Dr Maya about he anticoagulation and he is in agreement. DM-2 is controlled.Pt on ASA for TIA. He is on Lipitor for dyslipidemia.
[2018-06-03] MEDS: B6 PHOS PO SCH (09:42)
[2018-06-03] MEDS: LEVOMEFOLAT CA PO SCH (09:42)
[2018-06-03] MEDS: MECOBAL PO SCH (09:42)
[2018-06-03] MEDS: SACUBITRIL 49mg/VALSARTAN 51mg tab PO SCH (09:42)
--- NOTE | 2018-06-03 10:39 | CP.PCM.PN ---
<RiveradreadLelelalo - Last Filed: 06/03/18 15:36> Subjective - Date & Time of Evaluation Date of Evaluation: 06/03/18 Time of Evaluation: 08:55 - Subjective Subjective: PGY-4 GI Fellow Prog Note Pt lyinging in bed when seen this AM. States he is doing OK. Denied any abd pain, N/V and is tolerating diet. Waiting to go down for MRI. 5 point ROS negative other than stated above Objective - Vital Signs/Intake and Output Vital Signs (last 24 hours): Temp Pulse Resp BP Pulse Ox 97.8 F 100 H 20 108/66 97 06/03/18 06:00 06/03/18 06:00 06/03/18 06:00 06/03/18 09:42 06/03/18 07:52 Intake and Output: 06/03/18 06/03/18 06:59 18:59 Intake Total 360 Output Total 275 Balance 85 - Medications Medications: Current Medications Albuterol/Ipratropium (Duoneb 3 Mg/0.5 Mg (3 Ml) Ud) 3 ml IH BID [facility] Last Admin: 06/03/18 07:53 Dose: 3 ml Aspirin (Ecotrin) 81 mg PO DAILY [facility] Last Admin: 06/03/18 09:42 Dose: 81 mg Atorvastatin Calcium (Lipitor) 10 mg PO HS [facility] Last Admin: 06/02/18 21:54 Dose: 10 mg Doxazosin Mesylate (Cardura) 4 mg PO DAILY [facility] Last Admin: 06/03/18 09:41 Dose: 4 mg Enoxaparin Sodium (Lovenox) 90 mg SC Q12H [facility]; Protocol Last Admin: 06/03/18 08:53 Dose: 90 mg Folic Acid (Folic Acid) 1 mg PO DAILY [facility] Last Admin: 06/03/18 09:42 Dose: 1 mg Furosemide (Lasix) 40 mg PO DAILY [facility] Last Admin: 06/03/18 09:42 Dose: 40 mg Insulin Human Regular (Humulin R Low) 0 units SC ACHS [facility]; Protocol Last Admin: 06/03/18 08:54 Dose: Not Given Non-Formulary Medication (Mecobal/Levomefolat Ca/B6 Phos [Foltanx Tablet]) 2 mg PO DAILY [facility] Last Admin: 06/03/18 09:42 Dose: Not Given Sacubitril/Valsartan (Entresto 49 Mg-51 Mg Tablet) 1 each PO DAILY [facility] Last Admin: 06/03/18 09:42 Dose: 1 each Sitagliptin Phosphate (Januvia) 50 mg PO DAILY [facility] Last Admin: 06/03/18 09:42 Dose: 50 mg Sucralfate (Carafate Tab) 1 gm PO TID [facility] Last Admin: 06/03/18 09:42 Dose: 1 gm - Labs Labs: 06/03/18 06:00 06/03/18 06:00 PT 13.1 SECONDS (9.4-12.5) H 05/31/18 10:50 INR 1.16 05/31/18 10:50 APTT 26.8 Seconds (26.9-38.3) L 05/31/18 10:50 - Constitutional Appears: Well, No Acute Distress - Head Exam Head Exam: ATRAUMATIC, NORMAL INSPECTION - Eye Exam Eye Exam: EOMI. absent: Scleral icterus - ENT Exam ENT Exam: Mucous Membranes Moist. absent: Mucous Membranes Dry - Respiratory Exam Respiratory Exam: absent: Accessory Muscle Use, Respiratory Distress, NORMAL BREATHING PATTERN - GI/Abdominal Exam GI & Abdominal Exam: Distended, Soft, Normal Bowel Sounds. absent: Bruit, Firm, Guarding, Rigid, Tenderness, Mass, Organomegaly, Pulsatile Mass (+ umbilical hernia, reducible ) Assessment and Plan - Assessment and Plan (Free Text) Assessment: 88 yo M with PMH CAD s/p 8 stents, HTN, HLD, systolic CHF, [place], DM2, iron- deficiency anemia, paroxysmal a-fib, bladder CA, and hepatitis C (treated) [place] [facility] [place]. GI consulted due to elevated AFP and cirrhosis. Abdomen/Pelvis CT reviewed, showed nodular cirrhotic liver, hepatomegaly, splenomegaly, possible posterior right liver lobe mass, chronic pancreatitis. 1. Cirrhosis: BARAJAS vs Cardiac vs HCV (but reportedly treated) 2. Elevated AFP 3. TIA vs CVA 4. Atrial fibrillation 5. H/o Hepatitis C, treated 6. H/o Bladder CA 7. H/o Iron deficiency anemia 8. CHF: EF 35-40% with RVSP 60 Plan: - Abdomen MRI without contrast pending - Abdomen duplex with acute extrahepatic portal vein thrombosis, possible HCC associated - Therapeutic Lovenox -> Dabigatran already ordered in setting of A-fib - Would benefit from screening EGD for varices - Diuresis per Cardiology/Primary - Low Na diet Pt seen and examined with Dr. Mondragon; please see attestation for further recs/changes. <Rachelle Mondragon V - Last Filed: 06/03/18 23:42> Objective - Vital Signs/Intake and Output Vital Signs (last 24 hours): Temp Pulse Resp BP Pulse Ox 97.3 F L 109 H 18 122/68 99 06/03/18 17:38 06/03/18 17:38 06/03/18 17:38 06/03/18 21:34 06/03/18 17:38 Intake and Output: 06/03/18 06/04/18 18:59 06:59 Intake Total 900 Output Total 600 Balance 300 - Medications Medications: Current Medications Albuterol/Ipratropium (Duoneb 3 Mg/0.5 Mg (3 Ml) Ud) 3 ml IH BID [facility] Last Admin: 06/03/18 19:28 Dose: 3 ml Alprazolam (Xanax) 0.25 mg PO DAILY [facility]; Protocol PRN Reason: Anxiety Stop: 06/10/18 10:48 Aspirin (Ecotrin) 81 mg PO DAILY [facility] Last Admin: 06/03/18 09:42 Dose: 81 mg Atorvastatin Calcium (Lipitor) 10 mg PO HS [facility] Last Admin: 06/03/18 21:34 Dose: 10 mg Dabigatran (Pradaxa) 150 mg PO BID [facility]; Protocol Last Admin: 06/03/18 17:56 Dose: 150 mg Diphenhydramine HCl (Benadryl) 25 mg PO HS PRN PRN Reason: Insomnia Last Admin: 06/03/18 21:34 Dose: 25 mg Doxazosin Mesylate (Cardura) 4 mg PO DAILY [facility] Last Admin: 06/03/18 09:41 Dose: 4 mg Folic Acid (Folic Acid) 1 mg PO DAILY [facility] Last Admin: 06/03/18 09:42 Dose: 1 mg Furosemide (Lasix) 20 mg IVP Q12 [facility] Last Admin: 06/03/18 21:34 Dose: 20 mg Insulin Human Regular (Humulin R Low) 0 units SC ACHS [facility]; Protocol Last Admin: 06/03/18 21:39 Dose: Not Given Non-Formulary Medication (Mecobal/Levomefolat Ca/B6 Phos [Foltanx Tablet]) 2 mg PO DAILY [facility] Last Admin: 06/03/18 09:42 Dose: Not Given Sacubitril/Valsartan (Entresto 49 Mg-51 Mg Tablet) 1 each PO DAILY [facility] Last Admin: 06/03/18 09:42 Dose: 1 each Sitagliptin Phosphate (Januvia) 50 mg PO DAILY [facility] Last Admin: 06/03/18 09:42 Dose: 50 mg Sucralfate (Carafate Tab) 1 gm PO TID [facility] Last Admin: 06/03/18 17:56 Dose: 1 gm - Labs Labs: 06/03/18 06:00 06/03/18 06:00 PT 13.1 SECONDS (9.4-12.5) H 05/31/18 10:50 INR 1.16 05/31/18 10:50 APTT 26.8 Seconds (26.9-38.3) L 05/31/18 10:50 Attending/Attestation - Attestation I have personally seen and examined this patient.: Yes I have fully participated in the care of the patient.: Yes I have reviewed all pertinent clinical information, including history, physical exam and plan: Yes Notes (Text): This is an addendum to GI progress report dictated by the GI Fellow. The patient was seen and examined earlier. Medical records, lab studies, imagings were reviewed. Last 24 hours events reviewed. Agreed with the above treatment plan as outlined in GI Fellow 's notes with the addition of the following hepatic mass Cirrhosis probably secondary to hep C possibility of [place] also should be considered as an etiology for cirrhosis Very high alpha-fetoprotein suggestive of hepatoma Portal vein thrombosis versus tumor should be considered I am waiting for MRI We will discuss with Dr. Shelton and the patient,s family 06/03/18 23:38
--- NOTE | 2018-06-03 13:27 | PN ---
DATE: 06/03/2018 SUBJECTIVE: The patient is seen lying in bed on telemetry. He was started on Lovenox yesterday. He has had no hematuria thus far. He denies any motor or sensory deficits and states that his speech is unchanged. CURRENT MEDICATIONS: Include Carafate, Cardura, DuoNeb inhaler, Ecotrin, Entresto 49/51 mg daily, insulin, Januvia, Lasix 40 mg daily, Lipitor 10 mg daily, Lovenox. OBJECTIVE: GENERAL: He is a very elderly man who appears comfortable at rest. VITAL SIGNS: Blood pressure is 108/66 with a pulse of 90 to 100 in atrial fibrillation, respirations are 14. He is afebrile. HEENT: No JVD. CHEST: Bilateral scattered rhonchi. HEART: PMI displaced laterally with a systolic murmur at the left sternal border. ABDOMEN: Protuberant. Bowel sounds are present. EXTREMITIES: Trace ankle edema. DIAGNOSTICS DATA: Potassium is 3.8, BUN and creatinine 27 and 1.4, glucose is 161. White count 3.6, hemoglobin and hematocrit 10.5 and 32.1 with platelet count of 101,000. Abdominal ultrasound reveals evidence of acute extrahepatic portal vein thrombosis and evidence of cirrhosis. IMPRESSION: 1. Recent reversible ischemic neurologic defect, appears clinically improved. 2. Chronic atrial fibrillation, not previously on anticoagulant therapy because of recurrent hematuria. 3. History of bladder cancer. 4. Coronary artery disease, status post multivessel percutaneous coronary intervention. 5. Moderate mitral and tricuspid regurgitation. 6. Portal vein thrombosis. 7. History of cirrhosis. 8. Thrombocytopenia. RECOMMENDATIONS: His current cardiac medications will be continued for now. Entresto is meant to be dosed b.i.d. and this will need to be clarified with Dr. Monreal if there is some reason that he is on once daily dosing. Given both his portal vein thrombosis and atrial fibrillation as well as recent neurologic event, chronic anticoagulation appears reasonable at this time. A Watchman device could be considered for left atrial appendage occlusion if that were his only indication for anticoagulation but now that there is evidence of portal vein thrombosis, chronic anticoagulation should be considered. The resumption of Coumadin therapy can be planned or oral Pradaxa could be initiated as there is a reverse solution available should he develop evidence of severe bleeding complications. We will continue to follow and make further recommendations as appropriate. Juan David Vincent MD
--- NOTE | 2018-06-03 14:24 | US ---
Date of service: 06/02/2018 HISTORY: abdominal pain, cirrhosis on ct COMPARISON: None. TECHNIQUE: Sonographic evaluation of the abdomen. FINDINGS: LIVER: Measures 16.1 cm. Diffusely increased echogenicity of the liver parenchyma. Nodular contour. Consistent with hepatic cirrhosis. No intrahepatic biliary dilatation. There is intraluminal thrombus demonstrated in the portal vein, with a small amount of residual flow demonstrated by duplex Doppler interrogation. Direction of portal venous flow is not clearly demonstrated on the basis of this examination. No evidence of cavernous transformation no evidence of hepatic venous thrombosis GALLBLADDER: No evidence of cholelithiasis. Nonspecific mural thickening pericholecystic fluid cannot be evaluated in the setting of generalized ascites. COMMON BILE DUCT: Measures 5 mm. No stones. No dilatation. PANCREAS: Significant for questionable hypoechoic solid mass in the pancreatic head measuring 1.3 x 1.7 cm. This does not correspond to a mass identified on noncontrast CT examination. However, consider evaluation with contrast-enhanced CT utilizing pancreatic protocol for further evaluation in consideration of possible mass. Alternatively, this could represent thrombosed splenic vein/portal confluence. RIGHT KIDNEY: Measures 10.0cm. Normal echogenicity. No calculus, mass, or hydronephrosis. LEFT KIDNEY: Measures 10.9cm. Lower pole cyst, 1.5 cm. SPLEEN: Mild splenomegaly. The spleen measures 13.7 cm in greatest dimension. No focal mass. AORTA: No aneurysmal dilatation. IVC: Unremarkable. OTHER FINDINGS: Generalized ascites. IMPRESSION: Hepatic cirrhosis. Generalized ascites. Thrombosis of the portal vein with minimal residual portal venous flow demonstrated. No evidence of a patent venous thrombosis. Nonspecific gallbladder mural thickening without cholelithiasis. Left lower pole renal cortical cyst. Questionable 1.7 cm hypoechoic mass in pancreatic head versus thrombosed portal confluence consider further evaluation with multiphasic contrast enhanced CT examination. The preliminary findings for this examination were reported by [facility] at 8:44 p.m. on 06/02/2018. There is concurrence of this report with the preliminary findings.
[2018-06-04 06:41] LABS: ALB/GLOB RATIO 1.1 (1.1-1.8); ALBUMIN 3.6 g/dL (3.0-4.8); CALCIUM 9.1 mg/dL (8.4-10.5)
[2018-06-04 06:51] LABS: HEMOGLOBIN 10.1 g/dL (14.0-18.0); MEAN CELL VOLUME 102.6 fl (80.0-105.0); MEAN CORPUSCULAR HEMOGLOBIN 32.8 pg (25.0-35.0); MEAN PLATELET VOLUME 11.2 fl (7.0-11.0); RBC 3.08 10^6/uL (3.5-6.1); RED CELL DISTRIBUTION WIDTH 15.1 % (11.5-14.5); WHITE BLOOD COUNT 3.3 10^3/uL (4.5-11.0)
[2018-06-04 08:02] VITALS: BP 112/63; PULSE 65; RESP 19; TEMP 98; O2SAT 97
[2018-06-04] MEDS ORDERED: Potassium Chloride 20 mEq ER Tab PO ONE (08:19)
[2018-06-04] MEDS: Albuterol-Ipratrop 3 mg / 0.5 (3 ml) UD IH SCH (08:22)
[2018-06-04] MEDS: Insulin Reg-LOW-Coverage SC SCH (08:46)
[2018-06-04] MEDS ORDERED: SACUBITRIL 49mg/VALSARTAN 51mg tab PO SCH (10:00)
--- NOTE | 2018-06-04 10:05 | CP.PCM.DIS ---
<Karen Husain - Last Filed: 06/04/18 11:32> Provider - Provider Date of Admission: 05/31/18 13:46 Attending physician: Jamarcus Coats MD Primary care physician: Dr. Monreal Consults: 05/31/18 13:46 Cardiology Consult Routine Comment: Consulting Provider: Juan David Vincent Consulting Physician: Juan David Vincent Reason for Consult: cardio eval - s/p CVA Neurology Consult Routine Comment: Consulting Provider: Russell Molina Consulting Physician: Russell Molina Reason for Consult: slurred speech/facial droop x 4 days 05/31/18 23:00 Social Work Referral Routine Comment: d/c plan Physician Instructions: Reason For Exam: asess 05/31/18 23:18 Inpatient LINEN MANAGER Core Measures Referral Routine Comment: cva Physician Instructions: Reason For Exam: eval Transition In Care/Readmission Reduction Routine Comment: cva Physician Instructions: Reason For Exam: assess 06/01/18 09:16 Evaluation for TRCU Routine Comment: Physician Instructions: Reason For Exam: d/c planning 06/02/18 08:19 Physician Consult Routine Comment: Consulting Provider: Rachelle Mondragon V Consulting Physician: Rachelle Mondragon V Reason for Consult: elevated AFP and cirrhosis on CT Abd/pelvis 06/03/18 09:55 Physician Consult Routine Comment: Consulting Provider: Lisset Alexander Consulting Physician: Lisset Alexander Reason for Consult: paroxAfb, hxCVA, protal vein thromb hx of GI/ bleed; on lovenox Time Spent in preparation of Discharge (in minutes): 45 Hospital Course - Lab Results Lab Results: Micro Results 06/01/18 10:10 Nose MRSA Culture (Admit) - Final MRSA NOT DETECTED Most Recent Lab Values WBC 3.3 10^3/uL (4.5-11.0) L 06/04/18 06:00 RBC 3.08 10^6/uL (3.5-6.1) L 06/04/18 06:00 Hgb 10.1 g/dL (14.0-18.0) L 06/04/18 06:00 Hct 31.6 % (42.0-52.0) L 06/04/18 06:00 MCV 102.6 fl (80.0-105.0) 06/04/18 06:00 MCH 32.8 pg (25.0-35.0) 06/04/18 06:00 MCHC 32.0 g/dl (31.0-37.0) 06/04/18 06:00 RDW 15.1 % (11.5-14.5) H 06/04/18 06:00 Plt Count 101 10^3/uL (120.0-450.0) L 06/04/18 06:00 MPV 11.2 fl (7.0-11.0) H 06/04/18 06:00 Neut % (Auto) 69.3 % (50.0-68.0) H 05/31/18 10:50 Lymph % (Auto) 18.8 % (22.0-35.0) L 05/31/18 10:50 [place] % (Auto) 11.2 % (1.0-6.0) H 05/31/18 10:50 Eos % (Auto) 0.7 % (1.5-5.0) L 05/31/18 10:50 Baso % (Auto) 0.0 % (0.0-3.0) 05/31/18 10:50 Lymph # (Auto) 0.8 (1.2-3.4) L 05/31/18 10:50 [place] # (Auto) 0.5 (0.1-0.6) 05/31/18 10:50 Eos # (Auto) 0.0 (0.0-0.7) 05/31/18 10:50 Baso # (Auto) 0.00 K/mm3 (0.0-2.0) 05/31/18 10:50 Absolute Neuts (auto) 2.91 (1.4-6.5) 05/31/18 10:50 PT 13.1 SECONDS (9.4-12.5) H 05/31/18 10:50 INR 1.16 05/31/18 10:50 APTT 26.8 Seconds (26.9-38.3) L 05/31/18 10:50 Sodium 141 mmol/L (132-148) 06/04/18 06:00 Potassium 3.4 mmol/L (3.6-5.0) L 06/04/18 06:00 Chloride 105 mmol/L (98-107) 06/04/18 06:00 Carbon Dioxide 31 mmol/L (21-33) 06/04/18 06:00 Anion Gap 9 (10-20) L 06/04/18 06:00 BUN 24 mg/dL (7-21) H 06/04/18 06:00 Creatinine 1.4 mg/dl (0.8-1.5) 06/04/18 06:00 Est GFR ( Amer) 58 06/04/18 06:00 Est GFR (Non-Af Amer) 48 06/04/18 06:00 POC Glucose (mg/dL) 147 mg/dL (65-110) H 06/04/18 07:37 Random Glucose 150 mg/dL (70-110) H 06/04/18 06:00 Hemoglobin A1c 5.4 % (4.2-6.5) 06/01/18 08:15 Calcium 9.1 mg/dL (8.4-10.5) 06/04/18 06:00 Phosphorus 3.5 mg/dL (2.5-4.5) 06/02/18 07:00 Magnesium 1.8 mg/dL (1.7-2.2) 06/02/18 07:00 Total Bilirubin 0.8 mg/dL (0.2-1.3) 06/04/18 06:00 AST 52 U/L (17-59) 06/04/18 06:00 ALT 47 U/L (7-56) 06/04/18 06:00 Alkaline Phosphatase 97 U/L (38-126) 06/04/18 06:00 Total Protein 6.9 g/dL (5.8-8.3) 06/04/18 06:00 Albumin 3.6 g/dL (3.0-4.8) 06/04/18 06:00 Globulin 3.3 gm/dL 06/04/18 06:00 Albumin/Globulin Ratio 1.1 (1.1-1.8) 06/04/18 06:00 Triglycerides 115 mg/dL (35-160) 06/01/18 07:30 Cholesterol 133 mg/dL (130-200) 06/01/18 07:30 LDL Cholesterol Direct 64 mg/dL (0-129) 06/01/18 07:30 HDL Cholesterol 40 mg/dL (29-60) 06/01/18 07:30 Alpha Fetoprotein 4280.0 ng/mL (0.0-7.5) H 06/01/18 09:16 Free T4 2.04 ng/dL (0.78-2.19) 06/01/18 09:18 TSH 3rd Generation 1.11 mIU/mL (0.46-4.68) 06/01/18 09:18 - Hospital Course Hospital Course: Upon Admission 88yo male PMHx CAD s/p 8 stents, HTN, HLD, CHF, [place], DM2, prior tobacco use, ESDRAS, bladder ca, Hep C sent in by PMD for slurred speech and minimal left sided facial droop for 4 days. Patient denied noticing these changes and denied any headache, dizziness, vision changes, focial weakness/deficits, numbness/tingling in extremities. He did admit to abdominal pain and distention in his lower abdomen with no associated nausea/vomiting/bowel/bladder changes. On further ROS patient denied fever, chills, change in appetite, weight changes. 12 point ROS reviewed and negative unless otherwise specified. Hospital Course Patient admitted to TELE. Patient's Afib rate controlled. TSH and free T4 wnl. CHADS-VASc 7. HAS-BLED 4. As per patient's chart patient was hospitalized for GI bleed in the past and was unable to be anticoagulated. Echorevealed LV mildly dilated with impaired systolic fucntion EF 35-40%, moderate MR, moderate TR RVSP 60mmHg, moderate pulmHTN, mild to moderate pulmonic valvular regurg. Lipid panel wnl. Patient on home lipitor 10hs. Cardiology and Neurology on board. CT Head showed mild encephalomalacia at the right inferior frontal pole and mild chronic periventricular white matter ischemic changes. No acute intracranial abnormalities were noted. Brain MRI showed chronic lobar infarct vs posttraumatic cystic encephalomalacia at R frontal lobe medial base and no acute intracranial findings. 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 Daughter reports she has noticed some mood changes and that the slurred speech was more pronounced over the weekend prior to admission although patient "mumbles" at baseline. Neuro recommended Watchman if patient could not be anticoagulated; I spoke with patient's who was at bedside and with patient who would like to try anticoagulation first. Patient started on therapeutic Lovenox for paroxysmal Afib. In light of abdominal pain, distention, and CT abdomen/pelvis, AFP was ordered which was elevated. GI consulted and Abd u/s was ordered which showed acute extrahepatic portal vein thrombosis. Therapeutic Lovenox discontinued and patient on Pradaxa as per Cardio at this time. MRI abdomen was done due to concern of HCC. Patient to f/u results outpatient with GI who also recommends elective EGD to r/o esophageal varices in light of portal vein thrombosis. I had a long conversation with patient's daughter Iva regarding the benefits vs risks of anticoagulation in light of patient's portal vein thrombus, Afib, hx of CVA, and hx of GI/ bleed. Informed and consensual decision was made with patient and family about starting patient on anticoagulation at this time. Heme-Onc was consulted. Patient continued on Entresto and Lasix for systolic CHF. Continue management of HTN and DM2. HgbA1c wnl. Patient's family did not want patient to go to TCU and wanted him to go home and have outpatient physical therapy. Patient agreed with plan. Discharge Instructions You are being discharged from [facility]. Please take the following new medication as prescribed: -Pradaxa 150mg 1 tab twice daily Please resume all other home medications as prescribed by your primary care doctor. Please follow up with Heme-Onc Dr. Alexander within 5-7 days of discharge. Please follow up with your Ad Operations Associate Dr. Vincent within 5-7 days of discharge. Please follow up with your PMD Dr. Monreal within 7-10 days of discharge. Please follow up with GI Dr. Mondragon within 7-10 days of discharge. If you notice any blood in your urine or your stool or dark stool please call Dr. Monreal or Dr. Alexander immediately. If symptoms return please visit your nearest Emergency Room. Instructions discussed in detail with patient, patient's and daughter who were in the room, and daughter Iva over the phone. Patient and family vocalized understanding and agreement with plan. Please note this is a discharge summary. For full hospital course please refer to EMR. Discharge Exam - Additional Findings Additional findings: - Constitutional Appears: Non-toxic, No Acute Distress - Head Exam Head Exam: ATRAUMATIC, NORMAL INSPECTION, NORMOCEPHALIC - Eye Exam Eye Exam: EOMI, Normal appearance, PERRL. absent: Conjunctival injection, Scleral icterus - ENT Exam ENT Exam: Mucous Membranes Moist - Neck Exam Neck Exam: Full ROM. absent: Lymphadenopathy - Respiratory Exam Respiratory Exam: Clear to Ausculation Bilateral, NORMAL BREATHING PATTERN. absent: Accessory Muscle Use, Rales, Rhonchi, Wheezes, Respiratory Distress - Cardiovascular Exam Cardiovascular Exam: Irregular Rhythm, +S1, +S2 - GI/Abdominal Exam GI & Abdominal Exam: Distended, Soft, Normal Bowel Sounds. absent: Firm, Guarding, Rigid, Tenderness Additional comments: umbilical hernia noted - Extremities Exam Extremities Exam: Normal Capillary Refill, Normal Inspection. absent: Pedal Edema - Back Exam Back Exam: NORMAL INSPECTION. absent: rash noted - Neurological Exam Neurological Exam: Alert, Awake, CN II-XII Intact, Oriented x3 - Psychiatric Exam Psychiatric exam: Normal Affect, Normal Mood - Skin Skin Exam: Dry, Intact, Normal Color, Warm Discharge Plan - Discharge Medications Prescriptions: RX: Dabigatran [Pradaxa] 150 mg PO BID #60 cap - Follow Up Plan Condition: FAIR Disposition: HOME/ ROUTINE Instructions: Atrial Fibrillation (DC), Stroke (DC) Additional Instructions: You are being discharged from [facility]. Please take the following new medication as prescribed: -Pradaxa 150mg 1 tab twice daily Please resume all other home medications as prescribed by your primary care doctor. Please follow up with Heme-Onc Dr. Alexander within 5-7 days of discharge. Please follow up with your Ad Operations Associate Dr. Vincent within 5-7 days of discharge. Please follow up with your PMD Dr. Monreal within 7-10 days of discharge. Please follow up with GI Dr. Mondragon within 7-10 days of discharge. If you notice any blood in your urine or your stool or dark stool please call Dr. Monreal or Dr. Alexander immediately. If symptoms return please visit your nearest Emergency Room. Referrals: Nadir Monreal MD [Family Provider] - Juan David Vincent MD [Staff Provider] - Rachelle Mondragon MD [Medical Doctor] - Lisset Alexander MD [Staff Provider] - <Jamarcus Coats S - Last Filed: 06/07/18 17:07> Provider - Provider Date of Admission: 05/31/18 13:46 Attending physician: Jamarcus Coats MD Consults: 05/31/18 13:46 Cardiology Consult Routine Comment: Consulting Provider: Juan David Vincent Consulting Physician: Juan David Vincent Reason for Consult: cardio eval - s/p CVA Neurology Consult Routine Comment: Consulting Provider: Russell Molina Consulting Physician: Russell Molina Reason for Consult: slurred speech/facial droop x 4 days 05/31/18 23:00 Social Work Referral Routine Comment: d/c plan Physician Instructions: Reason For Exam: asess 05/31/18 23:18 Inpatient LINEN MANAGER Core Measures Referral Routine Comment: cva Physician Instructions: Reason For Exam: eval Transition In Care/Readmission Reduction Routine Comment: cva Physician Instructions: Reason For Exam: assess 06/01/18 09:16 Evaluation for TRCU Routine Comment: Physician Instructions: Reason For Exam: d/c planning 06/02/18 08:19 Physician Consult Routine Comment: Consulting Provider: Rachelle Mondragon V Consulting Physician: Rachelle Mondragon V Reason for Consult: elevated AFP and cirrhosis on CT Abd/pelvis 06/03/18 09:55 Physician Consult Routine Comment: Consulting Provider: Lisset Alexander Consulting Physician: Lisset Alexander Reason for Consult: paroxAfb, hxCVA, protal vein thromb hx of GI/ bleed; on [facility] Course - Lab Results Lab Results: Micro Results 06/01/18 10:10 Nose MRSA Culture (Admit) - Final MRSA NOT DETECTED Most Recent Lab Values WBC 3.3 10^3/uL (4.5-11.0) L 06/04/18 06:00 RBC 3.08 10^6/uL (3.5-6.1) L 06/04/18 06:00 Hgb 10.1 g/dL (14.0-18.0) L 06/04/18 06:00 Hct 31.6 % (42.0-52.0) L 06/04/18 06:00 MCV 102.6 fl (80.0-105.0) 06/04/18 06:00 MCH 32.8 pg (25.0-35.0) 06/04/18 06:00 MCHC 32.0 g/dl (31.0-37.0) 06/04/18 06:00 RDW 15.1 % (11.5-14.5) H 06/04/18 06:00 Plt Count 101 10^3/uL (120.0-450.0) L 06/04/18 06:00 MPV 11.2 fl (7.0-11.0) H 06/04/18 06:00 Neut % (Auto) 69.3 % (50.0-68.0) H 05/31/18 10:50 Lymph % (Auto) 18.8 % (22.0-35.0) L 05/31/18 10:50 [place] % (Auto) 11.2 % (1.0-6.0) H 05/31/18 10:50 Eos % (Auto) 0.7 % (1.5-5.0) L 05/31/18 10:50 Baso % (Auto) 0.0 % (0.0-3.0) 05/31/18 10:50 Lymph # (Auto) 0.8 (1.2-3.4) L 05/31/18 10:50 [place] # (Auto) 0.5 (0.1-0.6) 05/31/18 10:50 Eos # (Auto) 0.0 (0.0-0.7) 05/31/18 10:50 Baso # (Auto) 0.00 K/mm3 (0.0-2.0) 05/31/18 10:50 Absolute Neuts (auto) 2.91 (1.4-6.5) 05/31/18 10:50 PT 13.1 SECONDS (9.4-12.5) H 05/31/18 10:50 INR 1.16 05/31/18 10:50 APTT 26.8 Seconds (26.9-38.3) L 05/31/18 10:50 Sodium 141 mmol/L (132-148) 06/04/18 06:00 Potassium 3.4 mmol/L (3.6-5.0) L 06/04/18 06:00 Chloride 105 mmol/L (98-107) 06/04/18 06:00 Carbon Dioxide 31 mmol/L (21-33) 06/04/18 06:00 Anion Gap 9 (10-20) L 06/04/18 06:00 BUN 24 mg/dL (7-21) H 06/04/18 06:00 Creatinine 1.4 mg/dl (0.8-1.5) 06/04/18 06:00 Est GFR ( Amer) 58 06/04/18 06:00 Est GFR (Non-Af Amer) 48 06/04/18 06:00 POC Glucose (mg/dL) 147 mg/dL (65-110) H 06/04/18 07:37 Random Glucose 150 mg/dL (70-110) H 06/04/18 06:00 Hemoglobin A1c 5.4 % (4.2-6.5) 06/01/18 08:15 Calcium 9.1 mg/dL (8.4-10.5) 06/04/18 06:00 Phosphorus 3.5 mg/dL (2.5-4.5) 06/02/18 07:00 Magnesium 1.8 mg/dL (1.7-2.2) 06/02/18 07:00 Total Bilirubin 0.8 mg/dL (0.2-1.3) 06/04/18 06:00 AST 52 U/L (17-59) 06/04/18 06:00 ALT 47 U/L (7-56) 06/04/18 06:00 Alkaline Phosphatase 97 U/L (38-126) 06/04/18 06:00 Total Protein 6.9 g/dL (5.8-8.3) 06/04/18 06:00 Albumin 3.6 g/dL (3.0-4.8) 06/04/18 06:00 Globulin 3.3 gm/dL 06/04/18 06:00 Albumin/Globulin Ratio 1.1 (1.1-1.8) 06/04/18 06:00 Triglycerides 115 mg/dL (35-160) 06/01/18 07:30 Cholesterol 133 mg/dL (130-200) 06/01/18 07:30 LDL Cholesterol Direct 64 mg/dL (0-129) 06/01/18 07:30 HDL Cholesterol 40 mg/dL (29-60) 06/01/18 07:30 Alpha Fetoprotein 4280.0 ng/mL (0.0-7.5) H 06/01/18 09:16 Free T4 2.04 ng/dL (0.78-2.19) 06/01/18 09:18 TSH 3rd Generation 1.11 mIU/mL (0.46-4.68) 06/01/18 09:18 - Hospital Course Hospital Course: Pt seen and examined by me. I have reviewed the note of the veterinary medical officer and I agree with it. I have discussed the assessment and plan with the resident. I have reviewed the medications and the last labs.Pt with TIA and has been placed on anticoagulation. A portal vein thrombus was also found and pt was going to be on anticoagulation. Family was updated on pt's condition. D/C home and f/u with PMD.
--- NOTE | 2018-06-04 10:30 | PN ---
DATE: 06/04/2018 SUBJECTIVE: The patient is seen sitting in chair on 3R. He states he feels comfortable this morning. His gait has been somewhat unsteady, but his was at the bedside states that this has been chronic. CURRENT MEDICATIONS: Include Carafate, Cardura, DuoNeb inhaler, Ecotrin, Entresto, insulin, Januvia, Lasix 20 mg IV every 12 hours, Lipitor 10 mg daily, Pradaxa 150 mg twice a day and Xanax p.r.n. OBJECTIVE: GENERAL: He is a very elderly man who appears comfortable at rest. VITAL SIGNS: His blood pressure is 122/68 with a pulse of 66, respirations are 16. He is afebrile. Rhythm is irregular irregular. HEENT: No JVD. CHEST: Few scattered rhonchi heard. HEART: PMI displaced laterally. Rhythm is irregularly irregular. Systolic murmur is present left sternal border. ABDOMEN: Soft, nontender, normoactive bowel sounds. DIAGNOSTIC DATA: Potassium 3.4, BUN and creatinine 24 and 1.4, potassium has been replaced. White count 3.3, hemoglobin and hematocrit 10.1 and 31.6 with platelet count 101,000. Abdominal MRI was performed, results are pending. IMPRESSION: 1. Recent reversible ischemic neurologic defect clinically improved. 2. Chronic atrial fibrillation. 3. History of bladder cancer. 4. Acute portal vein thrombosis with evidence of cirrhosis. 5. Coronary artery disease status post multivessel percutaneous coronary intervention. 6. Moderate mitral and tricuspid regurgitation. 7. Mild thrombocytopenia. RECOMMENDATIONS: His current medications will be continued for now. Entresto will be switched to twice daily dosing as appropriate. Lasix can be switched to oral administration, Pradaxa will be continued for now. He has evidence of recurrent hematuria. This will need to be withdrawn. A conservative cardiac medication management is advised at this time. All the above was discussed with his who is at the bedside as well as Dr. Monreal via phone yesterday and Dr. Coats. We will be happy to provide ongoing followup as needed. Juan David Vincent MD MTDD
[2018-06-04] MEDS: MECOBAL PO SCH (10:39)
[2018-06-04] MEDS: B6 PHOS PO SCH (10:39)
[2018-06-04] MEDS: LEVOMEFOLAT CA PO SCH (10:39)
--- NOTE | 2018-06-04 13:41 | MRI ---
Date of service: 06/03/2018 PROCEDURE: MRI Abdomen without contrast HISTORY: COMPARISON: 05/31/2018 TECHNIQUE: Multisequence, multiplanar MR images of the abdomen without gadolinium contrast enhancement. FINDINGS: LIVER: Severe cirrhosis with abnormal signal throughout the inferior right hepatic lobe. This measures roughly 6.8 centimeters and is nonspecific in appearance. Extensive abdominal ascites. GALLBLADDER: Unremarkable. SPLEEN: Splenomegaly. ADRENALS: Unremarkable. KIDNEYS: Unremarkable. PANCREAS: Unremarkable. AORTA: No aneurysm. ASCITES: None. PERITONEUM: Unremarkable. LYMPH NODES: Unremarkable. OTHER FINDINGS: Left pleural effusion. Small pericardial effusion. IMPRESSION: Severe cirrhosis with abnormal signal throughout the inferior right hepatic lobe. Extensive abdominal ascites. Underlying hepatocellular carcinoma is not excluded this region. Recommend correlation with contrast enhanced cross-sectional imaging. Small left pleural effusion. Mild splenomegaly.
== END 2018-06-04 12:34 | disposition home or self-care (01) | DRG 69 ==
LOC: ED 10:31 → ERH 13:46 → 2RSO 14:49 → 3RNO 06-03 17:13
PROVIDERS: ADMIT Internal Medicine Nephrology; ATTEND Internal Medicine Nephrology
DX: G45.9 Transient cerebral ischemic attack, unspecified (principal); I81 Portal vein thrombosis; I13.0 Hypertensive heart and chronic kidney disease with heart failure and stage 1 through stage 4 chronic kidney disease, or unspecified chronic kidney disease; I50.22 Chronic systolic (congestive) heart failure; R47.81 Slurred speech; I25.10 Atherosclerotic heart disease of native coronary artery without angina pectoris; I48.0 Paroxysmal atrial fibrillation; B19.20 Unspecified viral hepatitis C without hepatic coma; D50.9 Iron deficiency anemia, unspecified; N40.0 Benign prostatic hyperplasia without lower urinary tract symptoms; E11.22 Type 2 diabetes mellitus with diabetic chronic kidney disease; Z85.51 Personal history of malignant neoplasm of bladder; Z87.891 Personal history of nicotine dependence; R47.1 Dysarthria and anarthria; K74.60 Unspecified cirrhosis of liver; D69.6 Thrombocytopenia, unspecified; E78.00 Pure hypercholesterolemia, unspecified; E78.5 Hyperlipidemia, unspecified; G93.89 Other specified disorders of brain; I08.1 Rheumatic disorders of both mitral and tricuspid valves; I25.2 Old myocardial infarction; I37.1 Nonrheumatic pulmonary valve insufficiency; I48.2 Chronic atrial fibrillation; K75.81 Nonalcoholic steatohepatitis (NASH); N18.9 Chronic kidney disease, unspecified; Z79.82 Long term (current) use of aspirin; Z87.01 Personal history of pneumonia (recurrent); Z95.5 Presence of coronary angioplasty implant and graft; Z86.19 Personal history of other infectious and parasitic diseases; Z88.5 Allergy status to narcotic agent; Z88.1 Allergy status to other antibiotic agents; Z91.018 Allergy to other foods

== ENCOUNTER 2018-06-14 08:04 | Inpatient (IN) | payer MEDICARE, BC ==
--- NOTE | 2018-06-14 08:25 | ED PDOC ---
Arrival/HPI - General Chief Complaint: Abdominal Pain Time Seen by Provider: 06/14/18 08:05 Historian: Patient - History of Present Illness Narrative History of Present Illness (Text): 06/14/18 08:18 88 year old male, with past medical history of CVA, TIA, A-fib on Eliquis, CAD s/p 8 stents, HTN, HLD, CHF, OR, DM2, EDSRAS, bladder CA, and Hep C, presents to the ED accompanied by family for evaluation of abdominal pain and distention for past week. Patient reports associated trouble urinating with little urinary output since yesterday night. Patient informs contacting Dr. Mondragon and was subsequently referred to the ED for evaluation. Patient denies any other associated somatic complaints. Patient denies any fevers, chills, headache, dizziness, chest pain, shortness of breath, dyspnea on exertion, cough, nausea, vomiting, diarrhea, changes in bowel movement, back pain, neck pain, or any other complaints. PMD: Dr. Monreal GI: Dr. Mondragon Armature Tester: Dr. Beach Time/Duration: 1 week Symptom Onset: Gradual Symptom Course: Unchanged Quality: Aching Activities at Onset: Light Context: Home Past Medical History - Provider Review Nursing Documentation Reviewed: Yes - Past History Past History: No Previous - Infectious Disease Hx of Infectious Diseases: None - Tetanus Immunization Tetanus Immunization: Unknown - Cardiac Hx Cardiac Disorders: Yes (CAD, prior OR,) Hx Congestive Heart Failure: Yes Hx Hypertension: Yes - Pulmonary Hx Respiratory Disorders: Yes (respiratory distress) Hx Bronchitis: Yes (Chronic) Hx Pneumonia: Yes - Neurological Hx Neurological Disorder: No - HEENT Hx HEENT Disorder: Yes (eyeglasses) - Renal Hx Renal Disorder: Yes Other/Comment: Bladder Ca remission - Endocrine/Metabolic Hx Diabetes Mellitus Type 1: Yes - Hematological/Oncological Hx Blood Disorders: Yes (sepsis) Hx Anemia: Yes (iron deficiency) Hx Cancer: Yes (bladder dx 10 yrs ago) Hx Chemotherapy: No Hx Hepatitis C: Yes Other/Comment: iron infusions dr Alexander and b12 shots. cystos were every 6 months now once a year has appt sched with dr payne in june as f/u with bladder ca - Integumentary Hx Dermatological Disorder: Yes (red buttocks) - Musculoskeletal/Rheumatological Hx Falls: No - Gastrointestinal Hx Gastrointestinal Disorders: No (colon polyps) - Genitourinary/Gynecological Hx Genitourinary Disorders: No - Psychiatric Hx Psychophysiologic Disorder: No Hx Substance Use: No - Past Surgical History Past Surgical History: Non-Contributing - Surgical History Hx Cardiac Catheterization: Yes Hx Coronary Stent: Yes (x8 ptca) Other/Comment: tooth extraction 3 months ago, cysto turbt x 3 or 4 - Anesthesia Hx Anesthesia: Yes Hx Anesthesia Reactions: Yes (DIFF WAKING UP AFTER A PROCEDURE IN HOSPITAL) Hx Malignant Hyperthermia: No - Suicidal Assessment Feels Threatened In Home Enviroment: No Family/Social History - Physician Review Nursing Documentation Reviewed: Yes Family/Social History: No Known Family HX Smoking Status: Former Smoker Hx Alcohol Use: No Hx Substance Use: No Hx Substance Use Treatment: No Allergies/Home Meds Allergies/Adverse Reactions: Allergies codeine Allergy (Verified 06/08/17 20:30) FATIGUE mushroom Allergy (Verified 06/08/17 20:30) RASH vancomycin Adverse Reaction (Verified 06/08/17 20:30) RASH Home Medications: Home Meds Medication Instructions Recorded Confirmed Aspirin [Ecotrin] 81 mg PO DAILY 07/21/15 05/31/18 SITagliptin [Januvia] 50 mg PO DAILY 07/21/15 05/31/18 Simvastatin [Zocor] 20 mg PO DAILY 07/21/15 05/31/18 Folic Acid 1 mg PO DAILY 12/26/16 05/31/18 Sucralfate [Carafate] 1 gm PO TID 12/26/16 05/31/18 Doxazosin [Cardura] 4 mg PO DAILY 05/31/17 05/31/18 GlipiZIDE [Glucotrol] 10 mg PO BID 05/31/17 05/31/18 Metformin HCl [Glucophage] 1,000 mg PO BID 05/31/17 05/31/18 Nitroglycerin [Nitrostat] 0.4 mg SL Q4 PRN 05/31/17 05/31/18 Albuterol HFA [Ventolin HFA 90 0.09 mg IH PRN PRN 05/31/18 05/31/18 mcg/actuation (8 g)] Albuterol/Ipratropium [Duoneb 3 3 ml IH BID 05/31/18 05/31/18 mg/0.5 mg (3 ml) UD] Mecobal/Levomefolat Ca/B6 Phos 2 mg PO DAILY 05/31/18 05/31/18 [Foltanx Tablet] Sacubitril/Valsartan [Entresto 49 1 tab PO DAILY 05/31/18 05/31/18 mg-51 mg] Review of Systems - Physician Review All systems were reviewed & negative as marked: Yes - Review of Systems Constitutional: absent: Fevers Respiratory: absent: SOB, Cough Cardiovascular: absent: Chest Pain, [place] Gastrointestinal: Abdominal Pain. absent: Diarrhea, Nausea, Vomiting, Appetite Changes Genitourinary Male: Urinary Output Changes Musculoskeletal: absent: Back Pain, Neck Pain Skin: absent: Rash Neurological: absent: Headache, Dizziness Psychiatric: absent: Anxiety Physical Exam Vital Signs Reviewed: Yes Vital Signs Temp Pulse Resp BP Pulse Ox 06/14/18 08:13 98.0 F 97 H 18 144/79 97 Temperature: Afebrile Blood Pressure: Normal Pulse: Regular Respiratory Rate: Normal Appearance: Positive for: Well-Appearing, Non-Toxic, Comfortable Pain Distress: None Mental Status: Positive for: Alert and Oriented X 3 - Systems Exam Head: Present: Atraumatic, Normocephalic Pupils: Present: PERRL Extroacular Muscles: Present: EOMI Conjunctiva: Present: Normal Mouth: Present: Moist Mucous Membranes Respiratory/Chest: Present: Clear to Auscultation, Good Air Exchange. No: Respiratory Distress, Accessory Muscle Use Cardiovascular: Present: Regular Rate and Rhythm, Normal S1, S2. No: Murmurs Abdomen: Present: Distention. No: Tenderness, Peritoneal Signs Back: Present: Normal Inspection Upper Extremity: Present: Normal Inspection. No: Cyanosis, Edema Lower Extremity: Present: Normal Inspection. No: Edema Neurological: Present: GCS=15, CN II-XII Intact, Speech Normal Skin: Present: Warm, Dry, Normal Color. No: Rashes Psychiatric: Present: Alert, Oriented x 3, Normal Insight, Normal Concentration Medical Decision Making ED Course and Treatment: 06/14/18 08:18 Impression: 88 year old male presents to the ED for evaluation of abdominal pain and distention. Hx of liver cirrhosis w/ out etoh abuse. ?mass noted on previous eval by GI. MRI abdomen w/ ?hepatoma. On exam pt in NAD, abdominal distension, no dark or bloody stool but decreased urine output. Will eval kidney function, likely image and seek labs. Sent in by GI for eval. Plan: -- EKG -- Labs -- Reassess and disposition Prior Visits: Notes and results from previous visits were reviewed. Progress Notes: 06/14/18 08:27 EKG reviewed, shows A-fib at 101 bpm, LBBB, No STEMI. Largely unchanged from pre vious EKG performed on 05/31/18. Paged Rachelle Broderick. 06/14/18 9:10 Dr. Mondragon at bedside evaluating patient, requests CT Abdomen/Pelvis w/o contrast for diagnosis and indication of further management. 06/14/18 10:29 CT of Abdomen/Pelvis reviewed by radiologist, shows: IMPRESSION: The liver has an irregular contour consistent with cirrhosis. There is severe ascites with distention of the abdomen. Findings are unchanged. 06/14/18 10:30 pt in NAD, no SOB no hydronephrosis or distentended bladders Discussed case with Dr. Coats, who is aware and agrees with ED management plan, accepts patient admission under his service. - EKG Interpretation Interpreted by ED Physician: Yes Type: 12 lead EKG - Scribe Statement The provider has reviewed the documentation as recorded by the Scribe Elke Alcantar. All medical record entries made by the Scribe were at my direction and personally dictated by me. I have reviewed the chart and agree that the record accurately reflects my personal performance of the history, physical exam, medical decision making, and the department course for this patient. I have also personally directed, reviewed, and agree with the discharge instructions and disposition. Disposition/Present on Arrival - Present on Arrival Any Indicators Present on Arrival: No History of DVT/PE: No History of Uncontrolled Diabetes: No Urinary Catheter: No History of Decub. Ulcer: No History Surgical Site Infection Following: None - Disposition Have Diagnosis and Disposition been Completed?: Yes Diagnosis: Ascites Disposition Time: 10:35 Condition: STABLE Forms: [employer] (Danish)
[2018-06-14 08:37] LABS: BASO # 0.01 K/mm3 (0.0-2.0); BASO % 0.2 % (0.0-3.0); EOS # 0.1 (0.0-0.7); EOS % 1.8 % (1.5-5.0); HEMOGLOBIN 11.6 g/dL (14.0-18.0); LYMPH # 1.1 (1.2-3.4); LYMPH % 21.8 % (22.0-35.0); MEAN CELL VOLUME 100.9 fl (80.0-105.0); MEAN CORPUSCULAR HEMOGLOBIN 33.1 pg (25.0-35.0); MEAN CORPUSCULAR HGB CONC 32.9 g/dl (31.0-37.0); MEAN PLATELET VOLUME 11.5 fl (7.0-11.0); MONO # 0.5 (0.1-0.6); MONO % 9.4 % (1.0-6.0); RBC 3.5 10^6/uL (3.5-6.1); RED CELL DISTRIBUTION WIDTH 14.9 % (11.5-14.5); WHITE BLOOD COUNT 5.1 10^3/uL (4.5-11.0)
[2018-06-14 08:48] LABS: INR 1.61; PARTIAL THROMBOPLASTIN TIME 39.4 Seconds (26.9-38.3); PROTHROMBIN TIME 18.2 SECONDS (9.4-12.5)
[2018-06-14 08:56] LABS: ALB/GLOB RATIO 1.1 (1.1-1.8); ALBUMIN 3.9 g/dL (3.0-4.8); CALCIUM 9.8 mg/dL (8.4-10.5)
--- NOTE | 2018-06-14 10:25 | CT ---
Date of service: 06/14/2018 PROCEDURE: CT Abdomen and Pelvis without intravenous contrast HISTORY: distension COMPARISON: CT 05/31/2018 TECHNIQUE: Without contrast. Contrast dose: Radiation dose: Total exam DLP = 1019.11 mGy-cm. This CT exam was performed using one or more of the following dose reduction techniques: Automated exposure control, adjustment of the mA and/or kV according to patient size, and/or use of iterative reconstruction technique. FINDINGS: LOWER THORAX: Small left pleural effusion LIVER: The liver has an irregular contour consistent with cirrhosis. There is severe ascites with distention of the abdomen. Findings are unchanged. GALLBLADDER AND BILE DUCTS: Unremarkable. PANCREAS: Multiple pancreatic calcifications consistent with chronic pancreatitis SPLEEN: Unremarkable. ADRENALS: Unremarkable. No mass. KIDNEYS AND URETERS: Unremarkable. No hydronephrosis. No solid mass. VASCULATURE: Unremarkable. No aortic aneurysm. No aortic atherosclerotic calcification or mural plaque present. BOWEL: Unremarkable. No obstruction. No gross mural thickening. APPENDIX: Unremarkable. Normal appendix. PERITONEUM: Unremarkable. No free fluid. No free air. LYMPH NODES: Unremarkable. No enlarged lymph nodes. BLADDER: Unremarkable. REPRODUCTIVE: Unremarkable. BONES: No acute fracture. OTHER FINDINGS: None. IMPRESSION: The liver has an irregular contour consistent with cirrhosis. There is severe ascites with distention of the abdomen. Findings are unchanged.
[2018-06-14] MEDS ORDERED: cefTRIAXone 2 GM IN NS 2 GM/100 ML BAG IVPB SCH (14:45)
--- NOTE | 2018-06-14 14:49 | CP.PCM.CON ---
<Eliceo Lewis - Last Filed: 06/14/18 14:52> History of Present Illness - History of Present Illness History of Present Illness: GI: Dr. Mondragon CC: Abdominal pain HPI: 88M w. PMH of CAD s/p 8 stents, HTN, HLD, systolic CHF, [place], DM2, iron- deficiency anemia, paroxysmal a-fib, bladder CA, and hepatitis C (treated) presents to [facility] [place] at the direction of Dr. Mondragon for evaluation of abdominal pain/distension x 1 week. Only other complaint is decreased urine output. Denies GUDINO/blurred vision, No CP/palpitations, no SOB/cough, no NVD, no pruritus/rashes. PMH: CAD s/p 8 stents, HTN, HLD, systolic CHF, MO, DM2, iron-deficiency anemia, paroxysmal a-fib, bladder CA, and hepatitis C (treated) Surg: Denied All: Codeine, mushroom, vancomycin SH: Former smoker, quit 30 years ago; denied EtOH and illicit drug use FHx: No GI history Medications reviewed as per [facility] Review of Systems - Review of Systems All systems: reviewed and no additional remarkable complaints except (HPI) Past Patient History - Infectious Disease Hx of Infectious Diseases: None - Tetanus Immunizations Tetanus Immunization: Unknown - Past Social History Smoking Status: Former Smoker - CARDIAC Hx Cardiac Disorders: Yes (CAD, prior [place],) Hx Congestive Heart Failure: Yes Hx Hypertension: Yes - PULMONARY Hx Respiratory Disorders: Yes (respiratory distress) Hx Bronchitis: Yes (Chronic) Hx Pneumonia: Yes - NEUROLOGICAL Hx Neurological Disorder: No - HEENT Hx HEENT Problems: Yes (eyeglasses) - RENAL Hx Chronic Kidney Disease: Yes Other/Comment: Bladder Ca remission - ENDOCRINE/METABOLIC Hx Diabetes Mellitus Type 1: Yes - HEMATOLOGICAL/ONCOLOGICAL Hx Blood Disorders: Yes (sepsis) Hx Anemia: Yes (iron deficiency) Hx Cancer: Yes (bladder dx 10 yrs ago) Hx Chemotherapy: No Hx Hepatitis C: Yes Other/Comment: iron infusions dr Alexander and b12 shots. cystos were every 6 months now once a year has appt sched with dr payne in june as f/u with bladder ca - INTEGUMENTARY Hx Dermatological Problems: Yes (red buttocks) - MUSCULOSKELETAL/RHEUMATOLOGICAL Hx Falls: No - GASTROINTESTINAL Hx Gastrointestinal Disorders: No (colon polyps) - GENITOURINARY/GYNECOLOGICAL Hx Genitourinary Disorders: No - PSYCHIATRIC Hx Psychophysiologic Disorder: No Hx Substance Use: No - SURGICAL HISTORY Hx Cardiac Catheterization: Yes Hx Coronary Stent: Yes (x8 ptca) Other/Comment: tooth extraction 3 months ago, cysto turbt x 3 or 4 - ANESTHESIA Hx Anesthesia: Yes Hx Anesthesia Reactions: Yes (DIFF WAKING UP AFTER A PROCEDURE IN HOSPITAL) Hx Malignant Hyperthermia: No Meds Allergies/Adverse Reactions: Allergies Allergy/AdvReac Type Severity Reaction Status Date / Time ciprofloxacin [From Cipro] Allergy RASH Verified 06/14/18 11:59 codeine Allergy FATIGUE Verified 06/14/18 11:59 - Medications Medications: Current Medications Aspirin (Ecotrin) 81 mg PO DAILY [facility] Last Admin: 06/14/18 11:54 Dose: 81 mg Doxazosin Mesylate (Cardura) 4 mg PO DAILY [facility] Last Admin: 06/14/18 11:52 Dose: 4 mg Ceftriaxone Sodium (Rocephin 1 Gram Ivpb) 1 gm in 100 mls @ 100 mls/hr IVPB DAILY [facility]; Protocol Morphine Sulfate (Morphine) 2 mg IVP Q4H PRN PRN Reason: Pain, severe (8-10) Sitagliptin Phosphate (Januvia) 50 mg PO DAILY [facility] Last Admin: 06/14/18 11:52 Dose: 50 mg Physical Exam - Constitutional Appears: Non-toxic, No Acute Distress - Head Exam Head Exam: ATRAUMATIC, NORMOCEPHALIC - Eye Exam Eye Exam: EOMI - ENT Exam ENT Exam: Mucous Membranes Moist - Neck Exam Neck exam: Positive for: Full Rom - Respiratory Exam Respiratory Exam: NORMAL BREATHING PATTERN. absent: Accessory Muscle Use, Respiratory Distress - GI/Abdominal Exam GI & Abdominal Exam: Distended, Soft. absent: Firm, Guarding, Rebound, Rigid, Tenderness - Extremities Exam Extremities exam: Negative for: calf tenderness, pedal edema - Neurological Exam Neurological exam: Alert, Oriented x3 - Psychiatric Exam Psychiatric exam: Normal Affect, Normal Mood Results - Vital Signs Recent Vital Signs: Last Vital Signs Temp 98.0 F 06/14/18 08:13 Pulse 93 H 06/14/18 14:33 Resp 16 06/14/18 14:33 BP 123/59 L 06/14/18 14:33 Pulse Ox 96 06/14/18 14:33 - Labs Result Diagrams: 06/14/18 08:30 06/14/18 08:30 Labs: Laboratory Results - last 24 hr 06/14/18 06/14/18 06/14/18 08:30 08:30 08:30 WBC 5.1 D RBC 3.50 Hgb 11.6 L Hct 35.3 L MCV 100.9 MCH 33.1 MCHC 32.9 RDW 14.9 H Plt Count 115 L MPV 11.5 H Neut % (Auto) 66.8 Lymph % (Auto) 21.8 L Wharton % (Auto) 9.4 H Eos % (Auto) 1.8 Baso % (Auto) 0.2 Lymph # (Auto) 1.1 L Wharton # (Auto) 0.5 Eos # (Auto) 0.1 Baso # (Auto) 0.01 Absolute Neuts (auto) 3.40 PT 18.2 H INR 1.61 APTT 39.4 H Sodium 138 Potassium 4.3 Chloride 101 Carbon Dioxide 25 Anion Gap 16 BUN 49 H Creatinine 2.1 H Est GFR ( Amer) 36 Est GFR (Non-Af Amer) 30 POC Glucose (mg/dL) Random Glucose 108 Calcium 9.8 Total Bilirubin 1.0 AST 56 ALT 36 Alkaline Phosphatase 117 NT-Pro-B Natriuret Pep 6010 H Total Protein 7.7 Albumin 3.9 Globulin 3.7 Albumin/Globulin Ratio 1.1 Lipase 181 06/14/18 12:58 WBC RBC Hgb Hct MCV MCH MCHC RDW Plt Count MPV Neut % (Auto) Lymph % (Auto) Wharton % (Auto) Eos % (Auto) Baso % (Auto) Lymph # (Auto) Wharton # (Auto) Eos # (Auto) Baso # (Auto) Absolute Neuts (auto) PT INR APTT Sodium Potassium Chloride Carbon Dioxide Anion Gap BUN Creatinine Est GFR ( Amer) Est GFR (Non-Af Amer) POC Glucose (mg/dL) 84 Random Glucose Calcium Total Bilirubin AST ALT Alkaline Phosphatase NT-Pro-B Natriuret Pep Total Protein Albumin Globulin Albumin/Globulin Ratio Lipase - Imaging and Cardiology CT scan - abdomen Status: Image reviewed by me, Report reviewed by me Assessment & Plan - Assessment and Plan (Free Text) Assessment: 88M w. multiple comorbidities presenting to ED w. abdominal pain/distension x 1 week -CT-A/P reviewed, +cirrhosis and severe ascites -Consulted IR for paracentesis -will follow -d/w attending Debbie PGY4 <Rachelle Mondragon V - Last Filed: 06/14/18 23:34> Meds - Medications Medications: Current Medications Aspirin (Ecotrin) 81 mg PO DAILY [facility] Last Admin: 06/14/18 11:54 Dose: 81 mg Doxazosin Mesylate (Cardura) 4 mg PO DAILY [facility] Last Admin: 06/14/18 11:52 Dose: 4 mg Ceftriaxone Sodium (Rocephin 1 Gram Ivpb) 1 gm in 100 mls @ 100 mls/hr IVPB DAILY [facility]; Protocol Last Admin: 06/14/18 15:15 Dose: 100 mls/hr Morphine Sulfate (Morphine) 2 mg IVP Q4H PRN PRN Reason: Pain, severe (8-10) Last Admin: 06/14/18 15:11 Dose: 2 mg Sitagliptin Phosphate (Januvia) 50 mg PO DAILY [facility] Last Admin: 06/14/18 11:52 Dose: 50 mg Results - Vital Signs Recent Vital Signs: Last Vital Signs Temp 98.0 F 06/14/18 08:13 Pulse 93 H 06/14/18 20:57 Resp 16 06/14/18 20:57 BP 123/59 L 06/14/18 14:33 Pulse Ox 96 06/14/18 14:33 - Labs Result Diagrams: 06/14/18 08:30 06/14/18 08:30 Labs: Laboratory Results - last 24 hr 06/14/18 06/14/18 06/14/18 08:30 08:30 08:30 WBC 5.1 D RBC 3.50 Hgb 11.6 L Hct 35.3 L MCV 100.9 MCH 33.1 MCHC 32.9 RDW 14.9 H Plt Count 115 L MPV 11.5 H Neut % (Auto) 66.8 Lymph % (Auto) 21.8 L Wharton % (Auto) 9.4 H Eos % (Auto) 1.8 Baso % (Auto) 0.2 Lymph # (Auto) 1.1 L Wharton # (Auto) 0.5 Eos # (Auto) 0.1 Baso # (Auto) 0.01 Absolute Neuts (auto) 3.40 PT 18.2 H INR 1.61 APTT 39.4 H Sodium 138 Potassium 4.3 Chloride 101 Carbon Dioxide 25 Anion Gap 16 BUN 49 H Creatinine 2.1 H Est GFR ( Amer) 36 Est GFR (Non-Af Amer) 30 POC Glucose (mg/dL) Random Glucose 108 Serum Osmolality Calcium 9.8 Total Bilirubin 1.0 AST 56 ALT 36 Alkaline Phosphatase 117 NT-Pro-B Natriuret Pep 6010 H Total Protein 7.7 Albumin 3.9 Globulin 3.7 Albumin/Globulin Ratio 1.1 Lipase 181 06/14/18 06/14/18 08:30 12:58 WBC RBC Hgb Hct MCV MCH MCHC RDW Plt Count MPV Neut % (Auto) Lymph % (Auto) Wharton % (Auto) Eos % (Auto) Baso % (Auto) Lymph # (Auto) Wharton # (Auto) Eos # (Auto) Baso # (Auto) Absolute Neuts (auto) PT INR APTT Sodium Potassium Chloride Carbon Dioxide Anion Gap BUN Creatinine Est GFR ( Amer) Est GFR (Non-Af Amer) POC Glucose (mg/dL) 84 Random Glucose Serum Osmolality 303 H Calcium Total Bilirubin AST ALT Alkaline Phosphatase NT-Pro-B Natriuret Pep Total Protein Albumin Globulin Albumin/Globulin Ratio Lipase Attending/Attestation - Attestation I have personally seen and examined this patient.: Yes I have fully participated in the care of the patient.: Yes I have reviewed all pertinent clinical information: Yes Notes (Text): This is an addendum to GI consult report dictated by the Resident. The patient was seen and evaluated earlier. Medical records, lab studies, imagings were reviewed. Last 24 hours events reviewed. Agreed with the above treatment plan as outlined in Resident 's notes with the addition of the following 06/14/18 23:21
[2018-06-14] MEDS: Morphine 2 mg/ml ISec IVP PRN (15:11)
--- NOTE | 2018-06-14 15:14 | CP.PCM.HP ---
<SusieSilvino - Last Filed: 06/14/18 15:45> History of Present Illness - History of Present Illness History of Present Illness: H&P for Dr Coats: 88yo male PMHx CAD s/p 8 stents, HTN, HLD, CHF, [place], DM2, prior tobacco use, ESDRAS, bladder ca, Hep C (reportedly untreated "due to age"), and cirrhosis presents with abdominal pain and distension. Patient along with his and daughter at bedside states that his abdominal distention has started to cause him severe pain within the past week. Patient denies any other associated symptoms, denies any nausea, vomiting, or diarrhea. Patient was seen by his PMD which had started him on a ciprofloxacin "for a UTI" of which he has not started to take yet. She denies any fever, chills, headache, shortness of breath, chest pain, palpitations, urinary or bowel symptoms. 12 point ROS performed and negative other than stated above. PMHx: CAD s/p 8 stents, HTN, HLD, CHF, [place], DM2, prior tobacco use, ESDRAS, bladder ca, HepC Meds: pls see chart ALL: codeine, mushrooms, vancomycin FamHx: noncontributory SocHx: prior tobacco use 30 years ago, denied EtOH, drug use. Lives at home with . Patient has unsteady gait and helps with ADLs Present on Admission - Present on Admission Any Indicators Present on Admission: No Review of Systems - Review of Systems All systems: reviewed and no additional remarkable complaints except Past Patient History - Infectious Disease Hx of Infectious Diseases: None - Tetanus Immunizations Tetanus Immunization: Unknown - Past Social History Smoking Status: Former Smoker - CARDIAC Hx Cardiac Disorders: Yes (CAD, prior [place],) Hx Congestive Heart Failure: Yes Hx Hypertension: Yes - PULMONARY Hx Respiratory Disorders: Yes (respiratory distress) Hx Bronchitis: Yes (Chronic) Hx Pneumonia: Yes - NEUROLOGICAL Hx Neurological Disorder: No - HEENT Hx HEENT Problems: Yes (eyeglasses) - RENAL Hx Chronic Kidney Disease: Yes Other/Comment: Bladder Ca remission - ENDOCRINE/METABOLIC Hx Diabetes Mellitus Type 1: Yes - HEMATOLOGICAL/ONCOLOGICAL Hx Blood Disorders: Yes (sepsis) Hx Anemia: Yes (iron deficiency) Hx Cancer: Yes (bladder dx 10 yrs ago) Hx Chemotherapy: No Hx Hepatitis C: Yes Other/Comment: iron infusions dr Alexander and b12 shots. cystos were every 6 months now once a year has appt sched with dr payne in june as f/u with bladder ca - INTEGUMENTARY Hx Dermatological Problems: Yes (red buttocks) - MUSCULOSKELETAL/RHEUMATOLOGICAL Hx Falls: No - GASTROINTESTINAL Hx Gastrointestinal Disorders: No (colon polyps) - GENITOURINARY/GYNECOLOGICAL Hx Genitourinary Disorders: No - PSYCHIATRIC Hx Psychophysiologic Disorder: No Hx Substance Use: No - SURGICAL HISTORY Hx Cardiac Catheterization: Yes Hx Coronary Stent: Yes (x8 ptca) Other/Comment: tooth extraction 3 months ago, cysto turbt x 3 or 4 - ANESTHESIA Hx Anesthesia: Yes Hx Anesthesia Reactions: Yes (DIFF WAKING UP AFTER A PROCEDURE IN HOSPITAL) Hx Malignant Hyperthermia: No Meds Allergies/Adverse Reactions: Allergies Allergy/AdvReac Type Severity Reaction Status Date / Time ciprofloxacin [From Cipro] Allergy RASH Verified 06/14/18 11:59 codeine Allergy FATIGUE Verified 06/14/18 11:59 Physical Exam - Constitutional Appears: No Acute Distress - Head Exam Head Exam: ATRAUMATIC, NORMOCEPHALIC - Eye Exam Eye Exam: EOMI - ENT Exam ENT Exam: Mucous Membranes Moist - Respiratory Exam Respiratory Exam: Clear to Auscultation Bilateral. absent: Rales, Wheezes - Cardiovascular Exam Cardiovascular Exam: REGULAR RHYTHM, +S1, +S2 - GI/Abdominal Exam GI & Abdominal Exam: Normal Bowel Sounds, Soft - Extremities Exam Extremities exam: Negative for: calf tenderness, pedal edema - Neurological Exam Neurological exam: Alert, CN II-XII Intact, Oriented x3 - Psychiatric Exam Psychiatric exam: Normal Mood - Skin Skin Exam: Dry, Intact, Warm Results - Vital Signs Recent Vital Signs: Last Vital Signs Temp 98.0 F 06/14/18 08:13 Pulse 93 H 06/14/18 14:33 Resp 16 06/14/18 14:33 BP 123/59 L 06/14/18 14:33 Pulse Ox 96 06/14/18 14:33 - Labs Result Diagrams: 06/14/18 08:30 06/14/18 08:30 Labs: Laboratory Results - last 24 hr 06/14/18 06/14/18 06/14/18 08:30 08:30 08:30 WBC 5.1 D RBC 3.50 Hgb 11.6 L Hct 35.3 L MCV 100.9 MCH 33.1 MCHC 32.9 RDW 14.9 H Plt Count 115 L MPV 11.5 H Neut % (Auto) 66.8 Lymph % (Auto) 21.8 L Dickinson % (Auto) 9.4 H Eos % (Auto) 1.8 Baso % (Auto) 0.2 Lymph # (Auto) 1.1 L Dickinson # (Auto) 0.5 Eos # (Auto) 0.1 Baso # (Auto) 0.01 Absolute Neuts (auto) 3.40 PT 18.2 H INR 1.61 APTT 39.4 H Sodium 138 Potassium 4.3 Chloride 101 Carbon Dioxide 25 Anion Gap 16 BUN 49 H Creatinine 2.1 H Est GFR ( Amer) 36 Est GFR (Non-Af Amer) 30 POC Glucose (mg/dL) Random Glucose 108 Calcium 9.8 Total Bilirubin 1.0 AST 56 ALT 36 Alkaline Phosphatase 117 NT-Pro-B Natriuret Pep 6010 H Total Protein 7.7 Albumin 3.9 Globulin 3.7 Albumin/Globulin Ratio 1.1 Lipase 181 06/14/18 12:58 WBC RBC Hgb Hct MCV MCH MCHC RDW Plt Count MPV Neut % (Auto) Lymph % (Auto) Dickinson % (Auto) Eos % (Auto) Baso % (Auto) Lymph # (Auto) Dickinson # (Auto) Eos # (Auto) Baso # (Auto) Absolute Neuts (auto) PT INR APTT Sodium Potassium Chloride Carbon Dioxide Anion Gap BUN Creatinine Est GFR ( Amer) Est GFR (Non-Af Amer) POC Glucose (mg/dL) 84 Random Glucose Calcium Total Bilirubin AST ALT Alkaline Phosphatase NT-Pro-B Natriuret Pep Total Protein Albumin Globulin Albumin/Globulin Ratio Lipase Assessment & Plan - Assessment and Plan (Free Text) Assessment: Abdominal pain r/o Spotaneous bacterial peritonitis Acute kidney injury Abdominal distention with ascites Cirrhosis Hx of CAD with stent placement HTN HLD CHF DM Bladder ca Hep C Continue with Rocephin until SBP is ruled out. IR was consulted for diagnostic and therapeutic paracentesis. Gastroenterology was consulted awaiting recommendations. Patient with NEMESIO therefore monitor I's and O's and avoid any nephrotoxic medications. CT A&P shows cirrhosis and large ascites. Continue to monitor creatinine. Continue with aspirin as patient has a history of coronary artery disease. Continue with doxazosin for his hypertension. Hold home metformin, and glipizide and continue Januvia as an inpatient. Pain control with morphine. Continue to monitor for any changes. Case and plan was reviewed and discussed with Dr. Coats. <Jamarcus Coats - Last Filed: 06/14/18 16:51> Results - Vital Signs Recent Vital Signs: Last Vital Signs Temp 98.0 F 06/14/18 08:13 Pulse 93 H 06/14/18 14:33 Resp 16 06/14/18 14:33 BP 123/59 L 06/14/18 14:33 Pulse Ox 96 06/14/18 14:33 - Labs Result Diagrams: 06/14/18 08:30 06/14/18 08:30 Labs: Laboratory Results - last 24 hr 06/14/18 06/14/18 06/14/18 08:30 08:30 08:30 WBC 5.1 D RBC 3.50 Hgb 11.6 L Hct 35.3 L MCV 100.9 MCH 33.1 MCHC 32.9 RDW 14.9 H Plt Count 115 L MPV 11.5 H Neut % (Auto) 66.8 Lymph % (Auto) 21.8 L Dickinson % (Auto) 9.4 H Eos % (Auto) 1.8 Baso % (Auto) 0.2 Lymph # (Auto) 1.1 L Dickinson # (Auto) 0.5 Eos # (Auto) 0.1 Baso # (Auto) 0.01 Absolute Neuts (auto) 3.40 PT 18.2 H INR 1.61 APTT 39.4 H Sodium 138 Potassium 4.3 Chloride 101 Carbon Dioxide 25 Anion Gap 16 BUN 49 H Creatinine 2.1 H Est GFR ( Amer) 36 Est GFR (Non-Af Amer) 30 POC Glucose (mg/dL) Random Glucose 108 Calcium 9.8 Total Bilirubin 1.0 AST 56 ALT 36 Alkaline Phosphatase 117 NT-Pro-B Natriuret Pep 6010 H Total Protein 7.7 Albumin 3.9 Globulin 3.7 Albumin/Globulin Ratio 1.1 Lipase 181 06/14/18 12:58 WBC RBC Hgb Hct MCV MCH MCHC RDW Plt Count MPV Neut % (Auto) Lymph % (Auto) Dickinson % (Auto) Eos % (Auto) Baso % (Auto) Lymph # (Auto) Dickinson # (Auto) Eos # (Auto) Baso # (Auto) Absolute Neuts (auto) PT INR APTT Sodium Potassium Chloride Carbon Dioxide Anion Gap BUN Creatinine Est GFR ( Amer) Est GFR (Non-Af Amer) POC Glucose (mg/dL) 84 Random Glucose Calcium Total Bilirubin AST ALT Alkaline Phosphatase NT-Pro-B Natriuret Pep Total Protein Albumin Globulin Albumin/Globulin Ratio Lipase Assessment & Plan - Assessment and Plan (Free Text) Assessment: Pt seen and examined by me. I have reviewed the note of the medical safety director and I agree with it. I have discussed the assessment and plan with the resident. I have reviewed the medications and the last labs. Pt with abd pain. She has an elevated AFP and was being seen by GI. He has ascites and will need tap. He has good BS and has no tenderness and rebound. He has CAD and is on ASA. He has DM-2 and will need to hold Metformin and Glipizide due to NEMESIO. He may become hypoglycemic. He will continue with Januvia for his DM-2. He will be placed on Morphine for his pain. CT of the abd and pelvis has been reviewed.
[2018-06-14] MEDS: cefTRIAXone 1 gm 1 GM/100 ML BAG IVPB SCH (15:15)
--- NOTE | 2018-06-14 17:11 | CARD ---
APPROVED REPORT Date of service: 06/14/2018 EKG Measurement Heart [id number] <Conclusion> Atrial fibrillation with rapid ventricular response Left bundle branch block Abnormal ECG
[2018-06-14 21:25] VITALS: BMI 31.6
[2018-06-14] MEDS ORDERED: Influenza Vaccine 60 mcg/0.5 mL SYR (4YR UP) IM ONE (21:27)
[2018-06-14] MEDS ORDERED: Pneumococcal 23-Valent Vaccine IM ONE (21:27)
[2018-06-15] MEDS: Insulin Reg-LOW-Coverage SC SCH ×4 (07:30→23:17)
--- NOTE | 2018-06-15 07:51 | CP.PCM.PN ---
<Miguel Panchal - Last Filed: 06/15/18 08:24> Subjective - Date & Time of Evaluation Date of Evaluation: 06/15/18 Time of Evaluation: 07:00 - Subjective Subjective: PGY5 GI Follow- up Pt seen and examined bedside confused to place and time still has abd discomfort tolerated liquid diet ROS: 12 point ROS conducted neg other than above Objective - Vital Signs/Intake and Output Vital Signs (last 24 hours): Temp Pulse Resp BP Pulse Ox 98.0 F 93 H 16 123/59 L 96 06/14/18 08:13 06/14/18 20:57 06/14/18 20:57 06/14/18 14:33 06/14/18 14:33 - Medications Medications: Current Medications Aspirin (Ecotrin) 81 mg PO DAILY [facility] Last Admin: 06/14/18 11:54 Dose: 81 mg Doxazosin Mesylate (Cardura) 4 mg PO DAILY [facility] Last Admin: 06/14/18 11:52 Dose: 4 mg Ceftriaxone Sodium (Rocephin 1 Gram Ivpb) 1 gm in 100 mls @ 100 mls/hr IVPB DAILY [facility]; Protocol Last Admin: 06/14/18 15:15 Dose: 100 mls/hr Insulin Human Regular (Humulin R Low) 0 units SC ACHS [facility]; Protocol Morphine Sulfate (Morphine) 2 mg IVP Q4H PRN PRN Reason: Pain, severe (8-10) Last Admin: 06/14/18 15:11 Dose: 2 mg Sitagliptin Phosphate (Januvia) 50 mg PO DAILY [facility] Last Admin: 06/14/18 11:52 Dose: 50 mg - Labs Labs: 06/14/18 08:30 06/14/18 08:30 PT 18.2 SECONDS (9.4-12.5) H 06/14/18 08:30 INR 1.61 06/14/18 08:30 APTT 39.4 Seconds (26.9-38.3) H 06/14/18 08:30 - Constitutional Appears: No Acute Distress, Chronically Ill - Head Exam Head Exam: ATRAUMATIC, NORMOCEPHALIC - Eye Exam Eye Exam: Normal appearance - ENT Exam ENT Exam: Mucous Membranes Moist, Normal Exam - Neck Exam Neck Exam: Normal Inspection - Respiratory Exam Respiratory Exam: Rhonchi, NORMAL BREATHING PATTERN. absent: Prolonged Expiratory Phase, Rales, Wheezes - Cardiovascular Exam Cardiovascular Exam: REGULAR RHYTHM, +S1, +S2 - GI/Abdominal Exam GI & Abdominal Exam: Distended, Normal Bowel Sounds, Organomegaly. absent: Guarding, Tenderness, Mass, Pulsatile Mass, Rebound - Extremities Exam Extremities Exam: Pedal Edema. absent: Joint Swelling - Neurological Exam Neurological Exam: Alert, Awake. absent: Oriented x3 - Psychiatric Exam Additional comments: cannot assess due to confusion - Skin Skin Exam: Dry, Intact, Normal Color, Warm Assessment and Plan - Assessment and Plan (Free Text) Assessment: 88 yo M with PMH CAD s/p 8 stents, HTN, HLD, systolic CHF, [place], DM2, iron- deficiency anemia, paroxysmal a-fib, bladder CA, and hepatitis C (treated) presents to [facility] for tense ascites. Abdomen/Pelvis CT reviewed, showed nodular cirrhotic liver, hepatomegaly, splenomegaly, severe ascites 1. Decompensated Cirrhosis with tense ascites underlying cause unknown, DDx: BARAJAS vs Cardiac vs HCV (but reportedly treated) 2. Elevated AFP, HCC? 3. TIA vs CVA 4. Atrial fibrillation 5. H/o Hepatitis C, treated 6. H/o Bladder CA 7. H/o Iron deficiency anemia 8. CHF: EF 35-40% with RVSP 60 Plan: - recommend IR guided paracentesis - recommend album,in replacement if > 5L taken - recommend cell count, albumin, total protein, cytology; r/o SBP - pain management as per primary team - due to portal vein thrombus, pt will likely reaccumalate - recommend starting low dose diuretics prior to discharge, recommend Lasix 40mg and aldactone 100mg daily D/w Dr. Mondragon <Rachelle Mondragon V - Last Filed: 06/15/18 22:11> Objective - Vital Signs/Intake and Output Vital Signs (last 24 hours): Temp Pulse Resp BP Pulse Ox 97.9 F 101 H 20 120/63 94 L 06/15/18 15:54 06/15/18 15:54 06/15/18 15:54 06/15/18 15:54 06/15/18 15:54 Intake and Output: 06/15/18 06/16/18 18:59 06:59 Intake Total 540 480 Output Total 400 Balance 540 80 - Medications Medications: Current Medications Aspirin (Ecotrin) 81 mg PO DAILY [facility] Last Admin: 06/15/18 10:00 Dose: Not Given Doxazosin Mesylate (Cardura) 4 mg PO DAILY [facility] Last Admin: 06/15/18 10:00 Dose: Not Given Sodium Chloride (Sodium Chloride 0.9%) 1,000 mls @ 100 mls/hr IV .Q10H [facility] Stop: 06/16/18 15:29 Last Admin: 06/15/18 21:03 Dose: 100 mls/hr Insulin Human Regular (Humulin R Low) 0 units SC ACHS [facility]; Protocol Last Admin: 06/15/18 16:35 Dose: Not Given Morphine Sulfate (Morphine) 2 mg IVP Q4H PRN PRN Reason: Pain, severe (8-10) Last Admin: 06/15/18 08:15 Dose: 2 mg Sitagliptin Phosphate (Januvia) 50 mg PO DAILY [facility] Last Admin: 06/15/18 11:42 Dose: Not Given - Labs Labs: 06/15/18 08:30 06/15/18 08:30 PT 18.2 SECONDS (9.4-12.5) H 06/14/18 08:30 INR 1.61 06/14/18 08:30 APTT 39.4 Seconds (26.9-38.3) H 06/14/18 08:30 Attending/Attestation - Attestation I have personally seen and examined this patient.: Yes I have fully participated in the care of the patient.: Yes I have reviewed all pertinent clinical information, including history, physical exam and plan: Yes Notes (Text): This is an addendum to GI progress report dictated by the GI Fellow. The patient was seen and examined earlier. Medical records, lab studies, imagings were reviewed. Last 24 hours events reviewed. Agreed with the above treatment plan as outlined in GI Fellow 's notes with the addition of the following 06/15/18 22:11
[2018-06-15] MEDS: Morphine 2 mg/ml ISec IVP PRN (08:15)
[2018-06-15 08:38] LABS: BASO # 0.01 K/mm3 (0.0-2.0); BASO % 0.2 % (0.0-3.0); HEMOGLOBIN 10.8 g/dL (14.0-18.0); LYMPH # 0.9 (1.2-3.4); LYMPH % 22.9 % (22.0-35.0); MEAN CELL VOLUME 101.8 fl (80.0-105.0); MEAN CORPUSCULAR HEMOGLOBIN 32.4 pg (25.0-35.0); MEAN CORPUSCULAR HGB CONC 31.9 g/dl (31.0-37.0); MEAN PLATELET VOLUME 10.7 fl (7.0-11.0); MONO # 0.4 (0.1-0.6); MONO % 10.2 % (1.0-6.0); RBC 3.33 10^6/uL (3.5-6.1)
[2018-06-15 08:53] LABS: ALB/GLOB RATIO 1.1 (1.1-1.8); ALBUMIN 3.8 g/dL (3.0-4.8); CALCIUM 9.7 mg/dL (8.4-10.5)
[2018-06-15 09:51] LABS: URINE BILIRUBIN NEGATIVE (NEGATIVE); URINE BLOOD TRACE-LYSED (NEGATIVE); URINE GLUCOSE (UA) NEGATIVE (NEGATIVE); URINE LEUKOCYTE ESTERASE NEGATIVE Leu/uL (NEGATIVE); URINE PROTEIN NEGATIVE mg/dL (<30 mg/dL); URINE UROBILINOGEN 0.2 E.U./dL (<1 E.U./dL)
[2018-06-15 09:53] LABS: URINE APPEARANCE CLEAR (CLEAR); URINE BACTERIA FEW /hpf; URINE COLOR YELLOW (YELLOW); URINE WBC 0 - 2 /hpf (0-6)
[2018-06-15] MEDS: cefTRIAXone 1 gm 1 GM/100 ML BAG IVPB SCH (09:57)
[2018-06-15 10:11] LABS: CREATININE,RANDOM URINE 110 mg/dL
--- NOTE | 2018-06-15 11:02 | CP.PCM.PN ---
<Silvino Richards - Last Filed: 06/15/18 10:57> Subjective - Date & Time of Evaluation Date of Evaluation: 06/15/18 Time of Evaluation: 07:00 - Subjective Subjective: Medicine progress note for Dr. Shelton: Patient was seen and examined at bedside. No acute events overnight. Patient still complaining of mild abdominal pain and distention. No other complaints. 12 point ROS performed and negative other than stated above Objective - Vital Signs/Intake and Output Vital Signs (last 24 hours): Temp Pulse Resp BP Pulse Ox 98.3 F 96 H 18 124/73 96 06/15/18 06:00 06/15/18 06:00 06/15/18 06:00 06/15/18 06:00 06/15/18 06:00 - Medications Medications: Current Medications Aspirin (Ecotrin) 81 mg PO DAILY [facility] Last Admin: 06/14/18 11:54 Dose: 81 mg Doxazosin Mesylate (Cardura) 4 mg PO DAILY [facility] Last Admin: 06/14/18 11:52 Dose: 4 mg Ceftriaxone Sodium (Rocephin 1 Gram Ivpb) 1 gm in 100 mls @ 100 mls/hr IVPB DAILY [facility]; Protocol Last Admin: 06/15/18 09:57 Dose: 100 mls/hr Insulin Human Regular (Humulin R Low) 0 units SC ACHS [facility]; Protocol Last Admin: 06/15/18 07:30 Dose: Not Given Morphine Sulfate (Morphine) 2 mg IVP Q4H PRN PRN Reason: Pain, severe (8-10) Last Admin: 06/15/18 08:15 Dose: 2 mg Sitagliptin Phosphate (Januvia) 50 mg PO DAILY [facility] Last Admin: 06/14/18 11:52 Dose: 50 mg - Labs Labs: 06/15/18 08:30 06/15/18 08:30 PT 18.2 SECONDS (9.4-12.5) H 06/14/18 08:30 INR 1.61 06/14/18 08:30 APTT 39.4 Seconds (26.9-38.3) H 06/14/18 08:30 - Constitutional Appears: No Acute Distress - Head Exam Head Exam: ATRAUMATIC, NORMOCEPHALIC - Eye Exam Eye Exam: EOMI - ENT Exam ENT Exam: Mucous Membranes Moist - Respiratory Exam Respiratory Exam: Clear to Ausculation Bilateral. absent: Rales, Wheezes - Cardiovascular Exam Cardiovascular Exam: RRR, +S1, +S2 - GI/Abdominal Exam GI & Abdominal Exam: Distended, Soft, Tenderness (mild tenderness ) - Extremities Exam Extremities Exam: absent: Calf Tenderness, Pedal Edema - Neurological Exam Neurological Exam: Alert, Awake, Oriented x3 - Psychiatric Exam Psychiatric exam: Normal Mood - Skin Skin Exam: Dry, Warm Assessment and Plan - Assessment and Plan (Free Text) Assessment: Abdominal pain r/o Spotaneous bacterial peritonitis Acute kidney injury Abdominal distention with ascites Cirrhosis Hx of CAD with stent placement HTN HLD CHF DM Bladder ca Hep C Continue with Rocephin until SBP is ruled out. IR was consulted for paracentesis. Gastroenterology recommend paracentesis along with Lasix and Aldactone prior to discharge. We will hold off on the diuretics in the setting of an NEMESIO. Patient with NEMESIO creatinine of 2.1 unchanged from yesterday. Cont to monitor. Monitor I's and O's and avoid any nephrotoxic medications. Continue with aspirin as patient has a history of coronary artery disease. Continue with doxazosin for his hypertension. Hold home metformin, and glipizide due to NEMESIO, and continue Januvia. Pain control with morphine. Continue to monitor for any changes. Case and plan was reviewed and discussed with Dr. Coats. <Jamarcus Coats S - Last Filed: 06/15/18 19:27> Objective - Vital Signs/Intake and Output Vital Signs (last 24 hours): Temp Pulse Resp BP Pulse Ox 97.9 F 101 H 20 120/63 94 L 06/15/18 15:54 06/15/18 15:54 06/15/18 15:54 06/15/18 15:54 06/15/18 15:54 Intake and Output: 06/15/18 06/16/18 18:59 06:59 Intake Total 540 480 Balance 540 480 - Medications Medications: Current Medications Aspirin (Ecotrin) 81 mg PO DAILY [facility] Last Admin: 06/15/18 10:00 Dose: Not Given Doxazosin Mesylate (Cardura) 4 mg PO DAILY [facility] Last Admin: 06/15/18 10:00 Dose: Not Given Insulin Human Regular (Humulin R Low) 0 units SC [facility]; Protocol Last Admin: 06/15/18 16:35 Dose: Not Given Morphine Sulfate (Morphine) 2 mg IVP Q4H PRN PRN Reason: Pain, severe (8-10) Last Admin: 06/15/18 08:15 Dose: 2 mg Sitagliptin Phosphate (Januvia) 50 mg PO DAILY [facility] Last Admin: 06/15/18 11:42 Dose: Not Given - Labs Labs: 06/15/18 08:30 06/15/18 08:30 PT 18.2 SECONDS (9.4-12.5) H 06/14/18 08:30 INR 1.61 06/14/18 08:30 APTT 39.4 Seconds (26.9-38.3) H 06/14/18 08:30 Assessment and Plan - Assessment and Plan (Free Text) Assessment: Pt seen and examined by me. I have reviewed the note of the medical technologist generalist and I agree with it. I have discussed the assessment and plan with the resident. I have reviewed the medications and the last labs. Pt with abd pain and tense ascites. He is going to get a tap done today. He most likely has intraabdominal hypertension. It is unlikely that he has abd compartment syndrome. I spoke to the daughter at the bedside this morning. He does have NEMESIO but it may be related to the ascites. Heptorenal syndrome must be on our ddx. Will need to hydrate and check his urine. He will be placed on Januvia for his DM-2. He does have CAD. He is on doxazosin for his HTN. Spoke to GI this morning. Will need to r/o SBP with the ascitic fluid.
--- NOTE | 2018-06-15 12:59 | CP.PCM.PCO ---
Physician Communication Note - Physician Communication Note Physician Communication Note: cirrhosis paracentesis today, fluid for cytology
[2018-06-15 15:31] LABS: BODY FLUID TYPE PERITONEAL/ASCITES
[2018-06-15 15:48] LABS: BF GROSS APPEARANCE CLEAR (CLEAR)
[2018-06-15 15:49] LABS: BODY FLUID TOTAL COUNT 100 (0-0)
--- NOTE | 2018-06-15 16:51 | US ---
PROCEDURE: Ultrasound guided paracentesis. HISTORY: Hepatitis-C cirrhosis. New onset ascites. Needs diagnostic and therapeutic paracentesis PHYSICIAN(S): Flex Hilario MD. TECHNIQUE: The relative risks and indications for the procedure were explained to the patient and informed written consent obtained. Sonography of the abdomen was performed in a supine position. This revealed a large amount of non-loculated ascites, greatest in the right lower quadrant. A puncture site was selected and the area was prepped and draped in the usual sterile fashion. 1% Xylocaine was used to anesthetize the skin and soft tissues. A 7 [place] paracentesis catheter was trocared into the right lower quadrantand 8300 cc of clear straw-colored fluid aspirated. The appropriate labs were sent. IMPRESSION: Ultrasound-guided paracentesis in the right lower quadrant. 8300 cc of fluid were aspirated. Labs were sent
[2018-06-15] MEDS: Sodium Chloride 0.9% 1,000 ML IV SCH (21:03)
[2018-06-16] MEDS: Sodium Chloride 0.9% 1,000 ML IV SCH (06:43)
[2018-06-16 07:00] LABS: BASO # 0.01 K/mm3 (0.0-2.0); BASO % 0.3 % (0.0-3.0); EOS # 0.1 (0.0-0.7); EOS % 1.3 % (1.5-5.0); HEMOGLOBIN 10.2 g/dL (14.0-18.0); LYMPH # 0.7 (1.2-3.4); LYMPH % 18.7 % (22.0-35.0); MEAN CELL VOLUME 101.3 fl (80.0-105.0); MEAN CORPUSCULAR HEMOGLOBIN 32.4 pg (25.0-35.0); MEAN PLATELET VOLUME 10.9 fl (7.0-11.0); MONO # 0.6 (0.1-0.6); MONO % 14.4 % (1.0-6.0); RBC 3.15 10^6/uL (3.5-6.1); RED CELL DISTRIBUTION WIDTH 15.1 % (11.5-14.5)
[2018-06-16] MEDS ORDERED: Albumin Human 25% (12.5 gm/50 ml) IV ONE ×2 (07:12→15:55)
[2018-06-16] MEDS: Insulin Reg-LOW-Coverage SC SCH ×4 (07:21→22:57)
[2018-06-16] MEDS ORDERED: Albumin Human 25% (25 gm/100 ml) IV ONE ×2 (07:30→16:00)
[2018-06-16 07:36] LABS: ALBUMIN 3.3 g/dL (3.0-4.8); CALCIUM 8.9 mg/dL (8.4-10.5); URIC ACID 10.9 mg/dL (3.5-8.5)
[2018-06-16 09:02] VITALS: RESP 18
--- NOTE | 2018-06-16 13:31 | CP.PCM.PN ---
Subjective - Date & Time of Evaluation Date of Evaluation: 06/16/18 Time of Evaluation: 07:00 - Subjective Subjective: Medicine progress note for Dr. Shelton: Patient was seen and examined at bedside. No acute events overnight. Patient states that his abdominal pain has much improved. Patient had a paracenthesis done yesterday with 8 L removed. No other complaints 12 point ROS performed and negative other than stated above Objective - Vital Signs/Intake and Output Vital Signs (last 24 hours): Temp Pulse Resp BP Pulse Ox 98 F 66 18 108/60 99 06/16/18 06:00 06/16/18 09:49 06/16/18 06:00 06/16/18 09:49 06/16/18 06:00 Intake and Output: 06/16/18 06/16/18 06:59 18:59 Intake Total 480 Output Total 500 Balance -20 - Medications Medications: Current Medications Aspirin (Ecotrin) 81 mg PO DAILY [facility] Last Admin: 06/16/18 09:55 Dose: 81 mg Doxazosin Mesylate (Cardura) 4 mg PO DAILY [facility] Last Admin: 06/16/18 09:55 Dose: 4 mg Sodium Chloride (Sodium Chloride 0.9%) 1,000 mls @ 100 mls/hr IV .Q10H [facility] Stop: 06/16/18 15:29 Last Admin: 06/16/18 06:43 Dose: 100 mls/hr Insulin Human Regular (Humulin R Low) 0 units SC ACHS [facility]; Protocol Last Admin: 06/16/18 07:21 Dose: Not Given Morphine Sulfate (Morphine) 2 mg IVP Q4H PRN PRN Reason: Pain, severe (8-10) Last Admin: 06/15/18 08:15 Dose: 2 mg Sitagliptin Phosphate (Januvia) 50 mg PO DAILY [facility] Last Admin: 06/16/18 09:55 Dose: 50 mg - Labs Labs: 06/16/18 06:35 06/16/18 06:35 PT 18.2 SECONDS (9.4-12.5) H 06/14/18 08:30 INR 1.61 06/14/18 08:30 APTT 39.4 Seconds (26.9-38.3) H 06/14/18 08:30 - Constitutional Appears: No Acute Distress - Head Exam Head Exam: ATRAUMATIC, NORMOCEPHALIC - Eye Exam Eye Exam: EOMI - ENT Exam ENT Exam: Mucous Membranes Moist - Respiratory Exam Respiratory Exam: Clear to Ausculation Bilateral. absent: Wheezes - Cardiovascular Exam Cardiovascular Exam: REGULAR RHYTHM, +S1, +S2 - GI/Abdominal Exam GI & Abdominal Exam: Distended (mild), Soft. absent: Tenderness - Extremities Exam Extremities Exam: absent: Calf Tenderness, Pedal Edema - Neurological Exam Neurological Exam: Alert, Awake, Oriented x3 - Psychiatric Exam Psychiatric exam: Normal Mood - Skin Skin Exam: Dry, Warm Assessment and Plan - Assessment and Plan (Free Text) Assessment: Abdominal pain r/o Spotaneous bacterial peritonitis Acute kidney injury Abdominal distention with ascites Cirrhosis Hx of CAD with stent placement HTN HLD CHF DM Bladder ca Hep C Patient with intra-abdominal hypertension unlikely due to abdominal compartment syndrome. Patient had paracentesis done yesterday with 8.3 L removed. His abdominal distention has much improved. Awaiting cultures for the ascites fluid to rule out SBP. Continue with Rocephin. A fluid challenge was given to the patient to rule out hepatorenal syndrome. Patient responded and his creatinine decreased from 2.1-->1.8 today. We will continue to monitor his creatinine. Monitor I's and O's and avoid any nephrotoxic medications. Continue with aspirin for his CAD. Continue with doxazosin for his hypertension. Continue with Januvia for his diabetes. Follow-up gastroenterology consult and recommendations. Continue to monitor for any changes. Case and plan was reviewed and discussed with Dr. Coats.
--- NOTE | 2018-06-16 13:41 | CP.PCM.PCO ---
Physician Communication Note - Physician Communication Note Physician Communication Note: s/p paracentesis 8.3L, albumin, NSS@100cc, NEMESIO, repeat labs in am
[2018-06-16 14:25] LABS: OSMOLALITY,URINE 441 mosm/kg (300-1000)
[2018-06-16] MEDS: cefTRIAXone 1 gm 1 GM/100 ML BAG IVPB SCH (15:38)
--- NOTE | 2018-06-16 20:30 | CP.PCM.PN ---
<Miguel Panchal - Last Filed: 06/16/18 20:34> Subjective - Date & Time of Evaluation Date of Evaluation: 06/16/18 Time of Evaluation: 08:00 - Subjective Subjective: PGY5 GI Fellow Pt seen and examined bedside more confused today awake, but lethargic nptes improvement in abd pain ROS: 12 point ROS conducted, neg other than above Objective - Vital Signs/Intake and Output Vital Signs (last 24 hours): Temp Pulse Resp BP Pulse Ox 98.4 F 60 18 120/62 98 06/16/18 14:00 06/16/18 14:00 06/16/18 14:00 06/16/18 15:25 06/16/18 14:00 - Medications Medications: Current Medications Aspirin (Ecotrin) 81 mg PO DAILY [facility] Last Admin: 06/16/18 09:55 Dose: 81 mg Dabigatran (Pradaxa) 150 mg PO BID [facility]; Protocol Doxazosin Mesylate (Cardura) 4 mg PO DAILY [facility] Last Admin: 06/16/18 09:55 Dose: 4 mg Ceftriaxone Sodium (Rocephin 1 Gram Ivpb) 1 gm in 100 mls @ 100 mls/hr IVPB DAILY [facility]; Protocol Last Admin: 06/16/18 15:38 Dose: 100 mls/hr Insulin Human Regular (Humulin R Low) 0 units SC ACHS [facility]; Protocol Last Admin: 06/16/18 17:09 Dose: Not Given Lactulose (Enulose) 20 gm PO BID [facility] Last Admin: 06/16/18 17:08 Dose: 20 gm Morphine Sulfate (Morphine) 2 mg IVP Q4H PRN PRN Reason: Pain, severe (8-10) Last Admin: 06/15/18 08:15 Dose: 2 mg Sitagliptin Phosphate (Januvia) 50 mg PO DAILY [facility] Last Admin: 06/16/18 09:55 Dose: 50 mg - Labs Labs: 06/16/18 06:35 06/16/18 06:35 PT 18.2 SECONDS (9.4-12.5) H 06/14/18 08:30 INR 1.61 06/14/18 08:30 APTT 39.4 Seconds (26.9-38.3) H 06/14/18 08:30 - Constitutional Appears: Well, No Acute Distress - Head Exam Head Exam: ATRAUMATIC, NORMOCEPHALIC - Eye Exam Eye Exam: Normal appearance Pupil Exam: NORMAL ACCOMODATION - ENT Exam ENT Exam: Mucous Membranes Moist, Normal Exam - Respiratory Exam Respiratory Exam: Clear to Ausculation Bilateral, NORMAL BREATHING PATTERN. absent: Rales, Rhonchi, Wheezes, Respiratory Distress - Cardiovascular Exam Cardiovascular Exam: REGULAR RHYTHM, +S1, +S2 - GI/Abdominal Exam GI & Abdominal Exam: Distended, Soft, Normal Bowel Sounds. absent: Firm, Guarding, Rigid, Tenderness, Organomegaly - Extremities Exam Extremities Exam: Pedal Edema. absent: Joint Swelling - Neurological Exam Neurological Exam: Alert, Awake, Oriented x3 - Skin Skin Exam: Normal Color Assessment and Plan - Assessment and Plan (Free Text) Assessment: 8 yo M with PMH CAD s/p 8 stents, HTN, HLD, systolic CHF, [place], DM2, iron- deficiency anemia, paroxysmal a-fib, bladder CA, and hepatitis C (treated) presents to [facility] [place] for tense ascites. Abdomen/Pelvis CT reviewed, showed nodular cirrhotic liver, hepatomegaly, splenomegaly, severe ascites. s/p paracentesis 06/15/2018 8.3L REMOVED 1. Decompensated Cirrhosis with tense ascites underlying cause unknown, DDx: BARAJAS vs Cardiac vs HCV (but reportedly treated) 2. Elevated AFP, HCC? 3. TIA vs CVA 4. Atrial fibrillation 5. H/o Hepatitis C, treated 6. H/o Bladder CA 7. H/o Iron deficiency anemia 8. CHF: EF 35-40% with RVSP 60 Plan: -unlikely SBP, based on fluid analysis -continue abx, ceftriaxone -s/p 50g albumin -recommend lactulose PO BID, titrate 2-3 BM daily - pain management as per primary team - due to portal vein thrombus, pt will likely reaccumalate D/W Dr. Mondragon <Rachelle Mondragon V - Last Filed: 06/16/18 23:58> Objective - Vital Signs/Intake and Output Vital Signs (last 24 hours): Temp Pulse Resp BP Pulse Ox 97.5 F L 72 18 105/66 95 06/16/18 22:00 06/16/18 22:00 06/16/18 22:00 06/16/18 22:00 06/16/18 22:00 Intake and Output: 06/16/18 06/17/18 18:59 06:59 Intake Total 420 Output Total 200 Balance 220 - Medications Medications: Current Medications Aspirin (Ecotrin) 81 mg PO DAILY [facility] Last Admin: 06/16/18 09:55 Dose: 81 mg Dabigatran (Pradaxa) 150 mg PO BID [facility]; Protocol Last Admin: 06/16/18 21:08 Dose: 150 mg Doxazosin Mesylate (Cardura) 4 mg PO DAILY [facility] Last Admin: 06/16/18 09:55 Dose: 4 mg Ceftriaxone Sodium (Rocephin 1 Gram Ivpb) 1 gm in 100 mls @ 100 mls/hr IVPB DAILY [facility]; Protocol Last Admin: 06/16/18 15:38 Dose: 100 mls/hr Insulin Human Regular (Humulin R Low) 0 units SC ACHS [facility]; Protocol Last Admin: 06/16/18 22:57 Dose: Not Given Lactulose (Enulose) 20 gm PO BID [facility] Last Admin: 06/16/18 17:08 Dose: 20 gm Morphine Sulfate (Morphine) 2 mg IVP Q4H PRN PRN Reason: Pain, severe (8-10) Last Admin: 06/15/18 08:15 Dose: 2 mg Sitagliptin Phosphate (Januvia) 50 mg PO DAILY [facility] Last Admin: 06/16/18 09:55 Dose: 50 mg - Labs Labs: 06/16/18 06:35 06/16/18 06:35 PT 18.2 SECONDS (9.4-12.5) H 06/14/18 08:30 INR 1.61 06/14/18 08:30 APTT 39.4 Seconds (26.9-38.3) H 06/14/18 08:30
[2018-06-17 07:08] LABS: BASO # 0.01 K/mm3 (0.0-2.0); BASO % 0.2 % (0.0-3.0); EOS # 0.1 (0.0-0.7); HEMOGLOBIN 10.8 g/dL (14.0-18.0); LYMPH # 1.1 (1.2-3.4); LYMPH % 25.3 % (22.0-35.0); MEAN CELL VOLUME 102.1 fl (80.0-105.0); MEAN CORPUSCULAR HEMOGLOBIN 32.4 pg (25.0-35.0); MEAN CORPUSCULAR HGB CONC 31.8 g/dl (31.0-37.0); MEAN PLATELET VOLUME 11.1 fl (7.0-11.0); MONO # 0.5 (0.1-0.6); MONO % 11.1 % (1.0-6.0); RBC 3.33 10^6/uL (3.5-6.1); RED CELL DISTRIBUTION WIDTH 15.1 % (11.5-14.5); WHITE BLOOD COUNT 4.3 10^3/uL (4.5-11.0)
[2018-06-17 07:52] LABS: ALB/GLOB RATIO 1.2 (1.1-1.8); ALBUMIN 3.6 g/dL (3.0-4.8); CALCIUM 9.3 mg/dL (8.4-10.5)
[2018-06-17] MEDS: Insulin Reg-LOW-Coverage SC SCH ×2 (08:37→12:13)
[2018-06-17 08:46] LABS: INR 1.44; PROTHROMBIN TIME 16.3 SECONDS (9.4-12.5)
[2018-06-17 09:14] VITALS: BP 101/57; PULSE 62; TEMP 98.4; O2SAT 96
--- NOTE | 2018-06-17 10:00 | CP.PCM.PN ---
Subjective - Date & Time of Evaluation Date of Evaluation: 06/17/18 Time of Evaluation: 09:15 - Subjective Subjective: PGY5 GI Follow-up Pt seen and examined bedside denies any abd pain more alert today and oriented x2 had only 1 BM yesterday ROS:12 point ROS conducted, neg other than above Objective - Vital Signs/Intake and Output Vital Signs (last 24 hours): Temp Pulse Resp BP Pulse Ox 98.4 F 62 18 101/57 L 96 06/17/18 06:00 06/17/18 06:00 06/17/18 06:00 06/17/18 06:00 06/17/18 06:00 Intake and Output: 06/17/18 06/17/18 06:59 18:59 Intake Total 420 Output Total 200 Balance 220 - Medications Medications: Current Medications Aspirin (Ecotrin) 81 mg PO DAILY [facility] Last Admin: 06/16/18 09:55 Dose: 81 mg Dabigatran (Pradaxa) 150 mg PO BID [facility]; Protocol Last Admin: 06/16/18 21:08 Dose: 150 mg Doxazosin Mesylate (Cardura) 4 mg PO DAILY [facility] Last Admin: 06/16/18 09:55 Dose: 4 mg Ceftriaxone Sodium (Rocephin 1 Gram Ivpb) 1 gm in 100 mls @ 100 mls/hr IVPB DA AJ [facility]; Protocol Last Admin: 06/16/18 15:38 Dose: 100 mls/hr Insulin Human Regular (Humulin R Low) 0 units SC ACHS [facility]; Protocol Last Admin: 06/17/18 08:37 Dose: Not Given Lactulose (Enulose) 20 gm PO BID [facility] Last Admin: 06/16/18 17:08 Dose: 20 gm Morphine Sulfate (Morphine) 2 mg IVP Q4H PRN PRN Reason: Pain, severe (8-10) Last Admin: 06/15/18 08:15 Dose: 2 mg Sitagliptin Phosphate (Januvia) 50 mg PO DAILY [facility] Last Admin: 06/16/18 09:55 Dose: 50 mg - Labs Labs: 06/17/18 06:55 06/17/18 06:55 PT 16.3 SECONDS (9.4-12.5) H 06/17/18 08:20 INR 1.44 06/17/18 08:20 APTT 39.4 Seconds (26.9-38.3) H 06/14/18 08:30 - Constitutional Appears: No Acute Distress, Chronically Ill - Head Exam Head Exam: ATRAUMATIC, NORMOCEPHALIC - Eye Exam Eye Exam: Normal appearance - ENT Exam ENT Exam: Mucous Membranes Moist, Normal Exam - Neck Exam Neck Exam: Normal Inspection - Respiratory Exam Respiratory Exam: Clear to Ausculation Bilateral, NORMAL BREATHING PATTERN. absent: Rales, Rhonchi, Wheezes, Respiratory Distress - Cardiovascular Exam Cardiovascular Exam: REGULAR RHYTHM, +S1, +S2 - GI/Abdominal Exam GI & Abdominal Exam: Distended, Soft, Normal Bowel Sounds. absent: Guarding, Rigid, Tenderness, Hypoactive Bowel Sounds, Mass, Organomegaly, Rebound - Extremities Exam Extremities Exam: absent: Joint Swelling, Pedal Edema - Neurological Exam Neurological Exam: Alert, Awake. absent: Oriented x3 - Psychiatric Exam Psychiatric exam: Normal Affect, Normal Mood - Skin Skin Exam: Dry, Intact, Normal Color, Warm Assessment and Plan - Assessment and Plan (Free Text) Assessment: 88 yo M with PMH CAD s/p 8 stents, HTN, HLD, systolic CHF, [place], DM2, iron- deficiency anemia, paroxysmal a-fib, bladder CA, and hepatitis C (treated) presents to [facility] [place] for tense ascites. Abdomen/Pelvis CT reviewed, showed nodular cirrhotic liver, hepatomegaly, splenomegaly, severe ascites. s/p paracentesis 06/15/2018 8.3L REMOVED 1. Decompensated Cirrhosis with tense ascites underlying cause unknown, DDx: BARAJAS vs Cardiac vs HCV (but reportedly treated)l; MELD-na: 14 06/17/2018 2. Elevated AFP, HCC? 3. TIA vs CVA 4. Atrial fibrillation 5. H/o Hepatitis C, treated 6. H/o Bladder CA 7. H/o Iron deficiency anemia 8. CHF: EF 35-40% with RVSP 60 Plan: -unlikely SBP, based on fluid analysis -can d/c abx -s/p 50g albumin -recommend lactulose PO BID, titrate 2-3 BM daily - pain management as per primary team - due to portal vein thrombus, pt will likely reaccumalate -needs to follow-up with Dr Mondragon as an oupt D/W Dr. mondragon
[2018-06-17] MEDS: cefTRIAXone 1 gm 1 GM/100 ML BAG IVPB SCH (10:24)
--- NOTE | 2018-06-17 10:32 | CP.PCM.DIS ---
<Silvino Richards - Last Filed: 06/17/18 10:39> Provider - Provider Date of Admission: 06/14/18 10:30 Attending physician: Jamarcus Coats MD Consults: 06/14/18 10:34 Consult [Physician Consult] Routine Comment: Consulting Provider: Rachelle Mondragon V Consulting Physician: Rachelle Mondragon V Reason for Consult: ascities 06/14/18 13:13 Consult [Physician Consult] Routine Comment: Consulting Provider: Flex Hilario Consulting Physician: Flex Hilario Reason for Consult: paracentesis 06/14/18 20:45 Nursing Referral for Palliative Care Routine Comment: baden score Physician Instructions: Reason For Exam: assess Social Work Referral Routine Comment: d/c plan Physician Instructions: Reason For Exam: eval 06/14/18 21:27 Case Management Referral Routine Comment: Physician Instructions: Reason For Exam: Reason for Referral: Discharge Planning Inpatient REAL ESTATE MANAGEMENT SPECIALIST Core Measures Referral Routine Comment: ascites Physician Instructions: Reason For Exam: assess Transition In Care/Readmission Reduction Routine Comment: ascites Physician Instructions: Reason For Exam: eval 06/15/18 10:48 Nursing Referral for Wound Care Routine Comment: Physician Instructions: Reason For Exam: n/a 06/16/18 18:14 TCU [Evaluation for TRCU] Routine Comment: Physician Instructions: Reason For Exam: deconditioned Time Spent in preparation of Discharge (in minutes): 45 Hospital Course - Lab Results Lab Results: Micro Results 06/15/18 15:20 Ascitic Fluid Body Fluid Culture - Preliminary NO GROWTH AFTER 24 HOURS 06/15/18 09:23 Urine,Clean Catch Urine Culture - Final No Growth (<1,000 CFU/ML) 06/15/18 15:20 Other: Please Indicate Fungal Culture - Preliminary Most Recent Lab Values WBC 4.3 10^3/uL (4.5-11.0) L 06/17/18 06:55 RBC 3.33 10^6/uL (3.5-6.1) L 06/17/18 06:55 Hgb 10.8 g/dL (14.0-18.0) L 06/17/18 06:55 Hct 34.0 % (42.0-52.0) L 06/17/18 06:55 MCV 102.1 fl (80.0-105.0) 06/17/18 06:55 MCH 32.4 pg (25.0-35.0) 06/17/18 06:55 MCHC 31.8 g/dl (31.0-37.0) 06/17/18 06:55 RDW 15.1 % (11.5-14.5) H 06/17/18 06:55 Plt Count 96 10^3/uL (120.0-450.0) L 06/17/18 06:55 MPV 11.1 fl (7.0-11.0) H 06/17/18 06:55 Neut % (Auto) 60.4 % (50.0-68.0) 06/17/18 06:55 Lymph % (Auto) 25.3 % (22.0-35.0) 06/17/18 06:55 [place] % (Auto) 11.1 % (1.0-6.0) H 06/17/18 06:55 Eos % (Auto) 3.0 % (1.5-5.0) 06/17/18 06:55 Baso % (Auto) 0.2 % (0.0-3.0) 06/17/18 06:55 Lymph # (Auto) 1.1 (1.2-3.4) L 06/17/18 06:55 [place] # (Auto) 0.5 (0.1-0.6) 06/17/18 06:55 Eos # (Auto) 0.1 (0.0-0.7) 06/17/18 06:55 Baso # (Auto) 0.01 K/mm3 (0.0-2.0) 06/17/18 06:55 Absolute Neuts (auto) 2.62 (1.4-6.5) 06/17/18 06:55 PT 16.3 SECONDS (9.4-12.5) H 06/17/18 08:20 INR 1.44 06/17/18 08:20 APTT 39.4 Seconds (26.9-38.3) H 06/14/18 08:30 Sodium 141 mmol/L (132-148) 06/17/18 06:55 Potassium 4.8 mmol/L (3.6-5.0) 06/17/18 06:55 Chloride 107 mmol/L (98-107) 06/17/18 06:55 Carbon Dioxide 25 mmol/L (21-33) 06/17/18 06:55 Anion Gap 14 (10-20) 06/17/18 06:55 BUN 42 mg/dL (7-21) H 06/17/18 06:55 Creatinine 1.5 mg/dl (0.8-1.5) 06/17/18 06:55 Est GFR ( Amer) 54 06/17/18 06:55 Est GFR (Non-Af Amer) 44 06/17/18 06:55 POC Glucose (mg/dL) 166 mg/dL (65-110) H 06/17/18 07:07 Random Glucose 157 mg/dL (70-110) H 06/17/18 06:55 Serum Osmolality 303 mosm/kg (272-300) H 06/14/18 08:30 Uric Acid 10.9 mg/dL (3.5-8.5) H 06/16/18 06:35 Calcium 9.3 mg/dL (8.4-10.5) 06/17/18 06:55 Phosphorus 3.9 mg/dL (2.5-4.5) 06/16/18 06:35 Magnesium 1.7 mg/dL (1.7-2.2) 06/16/18 06:35 Total Bilirubin 0.8 mg/dL (0.2-1.3) 06/17/18 06:55 AST 51 U/L (17-59) 06/17/18 06:55 ALT 37 U/L (7-56) 06/17/18 06:55 Alkaline Phosphatase 93 U/L (38-126) 06/17/18 06:55 Ammonia 29 umol/L (9-33) 06/16/18 06:35 NT-Pro-B Natriuret Pep 6010 pg/mL (0-450) H 06/14/18 08:30 Total Protein 6.7 g/dL (5.8-8.3) 06/17/18 06:55 Albumin 3.6 g/dL (3.0-4.8) 06/17/18 06:55 Globulin 3.1 gm/dL 06/17/18 06:55 Albumin/Globulin Ratio 1.2 (1.1-1.8) 06/17/18 06:55 Lipase 181 U/L (23-300) 06/14/18 08:30 Urine Color Yellow (YELLOW) 06/15/18 09:23 Urine Appearance Clear (CLEAR) 06/15/18 09:23 Urine pH 6.0 (4.7-8.0) 06/15/18 09:23 Ur Specific [place] 1.020 (1.005-1.035) 06/15/18 09:23 Urine Protein Negative mg/dL (<30 mg/dL) 06/15/18 09: Urine Glucose (UA) Negative mg/dL (NEGATIVE) 06/15/18 09: Urine Ketones Negative mg/dL (NEGATIVE) 06/15/18 09: Urine Blood Trace-lysed (NEGATIVE) H 06/15/18 09: Urine Nitrate Negative (NEGATIVE) 06/15/18 09: Urine Bilirubin Negative (NEGATIVE) 06/15/18 09: Urine Urobilinogen 0.2 E.U./dL (<1 E.U./dL) 06/15/18 09:23 Ur Leukocyte Esterase Negative Paresh/uL (NEGATIVE) 06/15/18 09:23 Urine RBC 2 - 5 /hpf (0-2) H 06/15/18 09:23 Urine WBC 0 - 2 /hpf (0-6) 06/15/18 09:23 Urine Bacteria Few /hpf (NONE) 06/15/18 09:23 Urine Osmolality 441 mosm/kg (300-1000) 06/16/18 14:10 Ur Random Creatinine 110 mg/dL 06/15/18 09:23 U Random Total Protein 9 mg/L 06/16/18 15:00 Ur Random Sodium 13 meq/L 06/16/18 14:10 Fluid Source Peritoneal/ascites 06/15/18 15:20 Fluid Appearance Clear (CLEAR) 06/15/18 15:20 Fluid WBC 318.0 /uL (0.0-300.0) H 06/15/18 15:20 Fluid RBC 435.0 /uL (0.0-0.0) H 06/15/18 15:20 Fluid Tot Cell Count 100 (0-0) H 06/15/18 15:20 Fluid Mononuclear Cell 94.7 % (0-0) H 06/15/18 15:20 Fl Polymorphonucl Cell 5.3 % (0-0) H 06/15/18 15:20 Fluid Comment Yellow 06/15/18 15:20 - Hospital Course Hospital Course: 88yo male PMHx CAD s/p 8 stents, HTN, HLD, CHF, [place], DM2, prior tobacco use, ESDRAS, bladder ca, Hep C (reportedly untreated "due to age"), and cirrhosis presents with abdominal pain and distension. In the ED basic lab work was performed. CT abdomen pelvis showed large ascites. Patient was admitted to do med/surgical floor for continued care. Gastroenterology was consulted. Upon admission patient did have an elevated creatinine 2.1 therefore diuretics, metformin, and glipizide were all held. Gastroenterology recommended a paracentesis. IR was consulted and performed a paracentesis with 8.3L removed with no complications. Fluid analysis was negative for SBP. Cultures were negative for SBP as well. Patient's creatinine trended down and today is 1.5. As per gastroenterology recommendations patient will be continued on Lasix, Aldactone and lactulose (to titrate to 2-3 bowel movements per day) at home. Patient and daughter states that they have or other medications at home. Today the patient states that he is doing well. Denies any abdominal pain nausea or vomiting. Dx: Abdominal pain with tense ascites r/o Spotaneous bacterial peritonitis Acute kidney injury Abdominal distention with ascites Cirrhosis Hx of CAD with stent placement HTN HLD CHF DM Bladder ca Hep C Discharge Exam - Head Exam Head Exam: ATRAUMATIC, NORMOCEPHALIC - Eye Exam Eye Exam: EOMI - Respiratory Exam Respiratory Exam: Clear to PA & Lateral. absent: Wheezes - Cardiovascular Exam Cardiovascular Exam: REGULAR RHYTHM, +S1, +S2 - GI/Abdominal Exam GI & Abdominal Exam: Normal Bowel Sounds, Soft. absent: Tenderness - Neurological Exam Neurological exam: Alert, Oriented x3 - Psychiatric Exam Psychiatric exam: Normal Mood - Skin Skin Exam: Dry, Warm Discharge Plan - Discharge Medications Prescriptions: RX: Spironolactone [Aldactone] 50 mg PO BID #30 tab RX: Lactulose [Enulose] 20 gm PO BID 30 Days udc Furosemide [Lasix] 40 mg PO DAILY #30 tab - Follow Up Plan Condition: IMPROVED Disposition: HOME/ ROUTINE Patient education suggested?: Yes Instructions: Fluid in the Belly (Ascites), Abdominal Paracentesis (DC) Additional Instructions: If your symptoms recur or come back to the ED Follow-up with your PMD within 3 days Follow-up with gastroenterology within 1 week Take your medications as prescribed Referrals: Rachelle Mondragon MD [Medical Doctor] - <Jamarcus Coats - Last Filed: 06/17/18 17:02> Provider - Provider Date of Admission: 06/14/18 10:30 Attending physician: Jamarcus Coats MD Consults: 06/14/18 10:34 Consult [Physician Consult] Routine Comment: Consulting Provider: Rachelle Mondragon V Consulting Physician: Rachelle Mondragon V Reason for Consult: ascities 06/14/18 13:13 Consult [Physician Consult] Routine Comment: Consulting Provider: Flex Hilario Consulting Physician: Flex Hilario Reason for Consult: paracentesis 06/14/18 20:45 Nursing Referral for Palliative Care Routine Comment: baden score Physician Instructions: Reason For Exam: assess Social Work Referral Routine Comment: d/c plan Physician Instructions: Reason For Exam: eval 06/14/18 21:27 Case Management Referral Routine Comment: Physician Instructions: Reason For Exam: Reason for Referral: Discharge Planning Inpatient REAL ESTATE MANAGEMENT SPECIALIST Core Measures Referral Routine Comment: ascites Physician Instructions: Reason For Exam: assess Transition In Care/Readmission Reduction Routine Comment: ascites Physician Instructions: Reason For Exam: eval 06/15/18 10:48 Nursing Referral for Wound Care Routine Comment: Physician Instructions: Reason For Exam: n/a 06/16/18 18:14 TCU [Evaluation for TRCU] Routine Comment: Physician Instructions: Reason For Exam: deconditioned Hospital Course - Lab Results Lab Results: Micro Results 06/15/18 15:20 Ascitic Fluid Body Fluid Culture - Preliminary NO GROWTH AFTER 2 DAYS 06/15/18 09:23 Urine,Clean Catch Urine Culture - Final No Growth (<1,000 CFU/ML) 06/15/18 15:20 Other: Please Indicate Fungal Culture - Preliminary Most Recent Lab Values WBC 4.3 10^3/uL (4.5-11.0) L 06/17/18 06:55 RBC 3.33 10^6/uL (3.5-6.1) L 06/17/18 06:55 Hgb 10.8 g/dL (14.0-18.0) L 06/17/18 06:55 Hct 34.0 % (42.0-52.0) L 06/17/18 06:55 MCV 102.1 fl (80.0-105.0) 06/17/18 06:55 MCH 32.4 pg (25.0-35.0) 06/17/18 06:55 MCHC 31.8 g/dl (31.0-37.0) 06/17/18 06:55 RDW 15.1 % (11.5-14.5) H 06/17/18 06:55 Plt Count 96 10^3/uL (120.0-450.0) L 06/17/18 06:55 MPV 11.1 fl (7.0-11.0) H 06/17/18 06:55 Neut % (Auto) 60.4 % (50.0-68.0) 06/17/18 06:55 Lymph % (Auto) 25.3 % (22.0-35.0) 06/17/18 06:55 [place] % (Auto) 11.1 % (1.0-6.0) H 06/17/18 06:55 Eos % (Auto) 3.0 % (1.5-5.0) 06/17/18 06:55 Baso % (Auto) 0.2 % (0.0-3.0) 06/17/18 06:55 Lymph # (Auto) 1.1 (1.2-3.4) L 06/17/18 06:55 [place] # (Auto) 0.5 (0.1-0.6) 06/17/18 06:55 Eos # (Auto) 0.1 (0.0-0.7) 06/17/18 06:55 Baso # (Auto) 0.01 K/mm3 (0.0-2.0) 06/17/18 06:55 Absolute Neuts (auto) 2.62 (1.4-6.5) 06/17/18 06:55 PT 16.3 SECONDS (9.4-12.5) H 06/17/18 08:20 INR 1.44 06/17/18 08:20 APTT 39.4 Seconds (26.9-38.3) H 06/14/18 08:30 Sodium 141 mmol/L (132-148) 06/17/18 06:55 Potassium 4.8 mmol/L (3.6-5.0) 06/17/18 06:55 Chloride 107 mmol/L (98-107) 06/17/18 06:55 Carbon Dioxide 25 mmol/L (21-33) 06/17/18 06:55 Anion Gap 14 (10-20) 06/17/18 06:55 BUN 42 mg/dL (7-21) H 06/17/18 06:55 Creatinine 1.5 mg/dl (0.8-1.5) 06/17/18 06:55 Est GFR ( Amer) 54 06/17/18 06:55 Est GFR (Non-Af Amer) 44 06/17/18 06:55 POC Glucose (mg/dL) 198 mg/dL (65-110) H 06/17/18 11:41 Random Glucose 157 mg/dL (70-110) H 06/17/18 06:55 Serum Osmolality 303 mosm/kg (272-300) H 06/14/18 08:30 Uric Acid 10.9 mg/dL (3.5-8.5) H 06/16/18 06:35 Calcium 9.3 mg/dL (8.4-10.5) 06/17/18 06:55 Phosphorus 3.9 mg/dL (2.5-4.5) 06/16/18 06:35 Magnesium 1.7 mg/dL (1.7-2.2) 06/16/18 06:35 Total Bilirubin 0.8 mg/dL (0.2-1.3) 06/17/18 06:55 AST 51 U/L (17-59) 06/17/18 06:55 ALT 37 U/L (7-56) 06/17/18 06:55 Alkaline Phosphatase 93 U/L (38-126) 06/17/18 06:55 Ammonia 29 umol/L (9-33) 06/16/18 06:35 NT-Pro-B Natriuret Pep 6010 pg/mL (0-450) H 06/14/18 08:30 Total Protein 6.7 g/dL (5.8-8.3) 06/17/18 06:55 Albumin 3.6 g/dL (3.0-4.8) 06/17/18 06:55 Globulin 3.1 gm/dL 06/17/18 06:55 Albumin/Globulin Ratio 1.2 (1.1-1.8) 06/17/18 06:55 Lipase 181 U/L (23-300) 06/14/18 08:30 Urine Color Yellow (YELLOW) 06/15/18 09:23 Urine Appearance Clear (CLEAR) 06/15/18 09:23 Urine pH 6.0 (4.7-8.0) 06/15/18 09:23 Ur Specific [place] 1.020 (1.005-1.035) 06/15/18 09:23 Urine Protein Negative mg/dL (<30 mg/dL) 06/15/18 09:23 Urine Glucose (UA) Negative mg/dL (NEGATIVE) 06/15/18 09:23 Urine Ketones Negative mg/dL (NEGATIVE) 06/15/18 09:23 Urine Blood Trace-lysed (NEGATIVE) H 06/15/18 09:23 Urine Nitrate Negative (NEGATIVE) 06/15/18 09:23 Urine Bilirubin Negative (NEGATIVE) 06/15/18 09:23 Urine Urobilinogen 0.2 E.U./dL (<1 E.U./dL) 06/15/18 09:23 Ur Leukocyte Esterase Negative Paresh/uL (NEGATIVE) 06/15/18 09:23 Urine RBC 2 - 5 /hpf (0-2) H 06/15/18 09:23 Urine WBC 0 - 2 /hpf (0-6) 06/15/18 09:23 Urine Bacteria Few /hpf (NONE) 06/15/18 09:23 Urine Osmolality 441 mosm/kg (300-1000) 06/16/18 14:10 Ur Random Creatinine 110 mg/dL 06/15/18 09:23 U Random Total Protein 9 mg/L 06/16/18 15:00 Ur Random Sodium 13 meq/L 06/16/18 14:10 Fluid Source Peritoneal/ascites 06/15/18 15:20 Fluid Appearance Clear (CLEAR) 06/15/18 15:20 Fluid WBC 318.0 /uL (0.0-300.0) H 06/15/18 15:20 Fluid RBC 435.0 /uL (0.0-0.0) H 06/15/18 15:20 Fluid Tot Cell Count 100 (0-0) H 06/15/18 15:20 Fluid Mononuclear Cell 94.7 % (0-0) H 06/15/18 15:20 Fl Polymorphonucl Cell 5.3 % (0-0) H 06/15/18 15:20 Fluid Comment Yellow 06/15/18 15:20 - Hospital Course Hospital Course: Patient was seen and examined by me. I have reviewed the note of the medical tech and have gone over the plan of care. I agree with the note. I have reviewed the medications and the last labs. Pt with improved Abd pain and NEMESIO. He is eating better. He will continue his anticoagulation for his a fib. He will f/u with GI for the ascites. He has been started on Aldactone. Spoke to daughter. She will f/u with PMD.
== END 2018-06-17 14:38 | disposition home or self-care (01) | DRG 432 ==
LOC: ED 08:04 → ERH 10:30 → 5RNO 16:59
PROVIDERS: ADMIT Internal Medicine Nephrology; ATTEND Internal Medicine Nephrology
PROC: BW40ZZZ Ultrasonography of Abdomen (ICD-10-PCS; 2018-06-15)
PROC: 0W9G3ZX Drainage of Peritoneal Cavity, Percutaneous Approach, Diagnostic (ICD-10-PCS; principal; 2018-06-15 12:00)
DX: K74.60 Unspecified cirrhosis of liver (principal); I81 Portal vein thrombosis; R18.8 Other ascites; N39.0 Urinary tract infection, site not specified; N17.9 Acute kidney failure, unspecified; I50.22 Chronic systolic (congestive) heart failure; I13.0 Hypertensive heart and chronic kidney disease with heart failure and stage 1 through stage 4 chronic kidney disease, or unspecified chronic kidney disease; Z79.82 Long term (current) use of aspirin; R14.0 Abdominal distension (gaseous); I48.0 Paroxysmal atrial fibrillation; B19.20 Unspecified viral hepatitis C without hepatic coma; E10.22 Type 1 diabetes mellitus with diabetic chronic kidney disease; Z87.891 Personal history of nicotine dependence; Z85.51 Personal history of malignant neoplasm of bladder; E78.5 Hyperlipidemia, unspecified; Z95.5 Presence of coronary angioplasty implant and graft; I25.10 Atherosclerotic heart disease of native coronary artery without angina pectoris; D50.9 Iron deficiency anemia, unspecified; I25.2 Old myocardial infarction; N18.9 Chronic kidney disease, unspecified; Z86.010 Personal history of colon polyps; Z86.73 Personal history of transient ischemic attack (TIA), and cerebral infarction without residual deficits; Z87.01 Personal history of pneumonia (recurrent); Z86.19 Personal history of other infectious and parasitic diseases; Z88.1 Allergy status to other antibiotic agents; Z88.5 Allergy status to narcotic agent

== ENCOUNTER 2018-08-30 16:32 | Outpatient (CLI) | payer MEDICARE, BC | END 2018-08-30 16:33 | disposition home or self-care (01) | LOC: RAD 16:32 ==

== ENCOUNTER 2018-09-21 14:00 | Observation (INO) | payer MEDICARE, BC ==
[2018-09-21 14:00] VITALS: BMI 31.6
--- NOTE | 2018-09-21 14:28 | ED PDOC ---
Arrival/HPI - General Chief Complaint: Abdominal Pain Time Seen by Provider: 09/21/18 14:03 Historian: Patient, Family - History of Present Illness Narrative History of Present Illness (Text): 09/21/18 14:26 88 year old male, whose past medical history includes CAD s/p 8 stents, HTN, HLD, CHF, NH, DM2, prior tobacco use, ESDRAS, bladder ca, Hep C (reportedly untreated "due to age"), and cirrhosis, presents to the emergency department accompanied by family complaining of abdominal distention, abdominal discomfort, and urinary retention for the past few weeks. As per family, they attempted to get in contact with Dr. Flex Hilario, but was unable to. STAFF DEVELOPMENT MANAGER Dr. Hooker covering Dr. Monreal who told patient to go the ER for evaluation since also Dr. Alexander notified patient about elevated Potassium levels. Patient last had fluid removed was approximately 3 weeks ago. Patient denies any fever, chills, chest pain, shortness of breath, nausea, vomiting, diarrhea, urinary symptoms, back pain, neck pain, headache, dizziness, or any other complaints. PMD: Dr. Hernandez Vascular surgeon: Dr. Flex Hilario Oncologist: Dr. Alexander Symptom Onset: Gradual Activities at Onset: Light Context: Home Past Medical History - Provider Review Nursing Documentation Reviewed: Yes Primary Care Provider: Nadir Monreal - Past History Past History: No Previous - Infectious Disease Hx of Infectious Diseases: None - Tetanus Immunization Tetanus Immunization: Unknown - Cardiac Hx Cardiac Disorders: Yes (CAD, prior NH, a fib, tachycardia) Hx Congestive Heart Failure: Yes Hx Hypertension: Yes - Pulmonary Hx Respiratory Disorders: Yes (respiratory distress) Hx Bronchitis: Yes (Chronic) Hx Pneumonia: Yes - Neurological Hx Neurological Disorder: No - HEENT Hx HEENT Disorder: Yes (eyeglasses) - Renal Hx Renal Disorder: Yes Other/Comment: Bladder Ca remission - Endocrine/Metabolic Hx Diabetes Mellitus Type 1: Yes - Hematological/Oncological Hx Blood Disorders: Yes (sepsis) Hx Anemia: Yes (iron deficiency) Hx Cancer: Yes (bladder dx 10 yrs ago) Hx Chemotherapy: No Hx Hepatitis C: Yes Other/Comment: iron infusions dr Alexander and b12 shots. cystos were every 6 months now once a year has appt sched with dr payne in june as f/u with bladder ca, pt had to cancel his appt with dr parisi this month due to pt's physical condition - Integumentary Hx Dermatological Disorder: Yes (red buttocks) Other/Comment: multiple skin discolorations both arms - Musculoskeletal/Rheumatological Hx Falls: No - Gastrointestinal Hx Gastrointestinal Disorders: Yes (colon polyps, obese) Hx Liver Failure: Yes (ascites) Other/Comment: abd grossly distended and firm to touch small umbilical hernia noted - Genitourinary/Gynecological Hx Genitourinary Disorders: Yes Hx Urinary Tract Infection: Yes - Psychiatric Hx Psychophysiologic Disorder: No Hx Substance Use: No - Past Surgical History Past Surgical History: Non-Contributing - Surgical History Hx Cardiac Catheterization: Yes Hx Coronary Stent: Yes (x8 ptca) Other/Comment: tooth extraction 3 months ago, cysto turbt x 3 or 4 - Anesthesia Hx Anesthesia: Yes Hx Anesthesia Reactions: Yes (DIFF WAKING UP AFTER A PROCEDURE IN HOSPITAL) Hx Malignant Hyperthermia: No - Suicidal Assessment Feels Threatened In Home Enviroment: No Family/Social History - Physician Review Nursing Documentation Reviewed: Yes Family/Social History: No Known Family HX Smoking Status: Former Smoker Hx Alcohol Use: No Hx Substance Use: No Hx Substance Use Treatment: No Allergies/Home Meds Allergies/Adverse Reactions: Allergies ciprofloxacin [From Cipro] Allergy (Verified 09/21/18 14:14) RASH codeine Allergy (Verified 09/21/18 14:14) FATIGUE Home Medications: Home Meds Medication Instructions Recorded Confirmed Aspirin [Ecotrin] 81 mg PO DAILY 07/21/15 06/14/18 SITagliptin [Januvia] 50 mg PO DAILY 07/21/15 06/14/18 Simvastatin [Zocor] 20 mg PO DAILY 07/21/15 06/14/18 Sucralfate [Carafate] 1 gm PO TID 12/26/16 06/14/18 Doxazosin [Cardura] 4 mg PO DAILY 05/31/17 06/14/18 GlipiZIDE [Glucotrol] 10 mg PO BID 05/31/17 06/14/18 Metformin HCl [Glucophage] 1,000 mg PO BID 05/31/17 06/14/18 Nitroglycerin [Nitrostat] 0.4 mg SL Q4 PRN 05/31/17 06/14/18 Mecobal/Levomefolat Ca/B6 Phos 2 mg PO DAILY 05/31/18 06/14/18 [Foltanx Tablet] Sacubitril/Valsartan [Entresto 49 1 tab PO DAILY 05/31/18 06/14/18 mg-51 mg] Albuterol HFA [Ventolin HFA 90 2 puff IH Q6 PRN 06/14/18 06/14/18 mcg/actuation (8 g)] Travoprost [Travatan Z] 1 drop EACHEYE DAILY 06/14/18 06/14/18 Review of Systems - Physician Review All systems were reviewed & negative as marked: Yes - Review of Systems Constitutional: absent: Fevers, Other (chills) Respiratory: absent: SOB Cardiovascular: absent: Chest Pain Gastrointestinal: Abdominal Pain (and distention). absent: Diarrhea, Nausea, Vomiting Genitourinary Male: Urinary Output Changes. absent: Dysuria, Frequency, Hematuria Musculoskeletal: absent: Back Pain, Neck Pain Neurological: absent: Headache, Dizziness Physical Exam Vital Signs Reviewed: Yes Vital Signs Pulse Resp BP Pulse Ox 09/21/18 14:01 60 18 129/72 98 Blood Pressure: Normal Pulse: Regular Respiratory Rate: Normal Appearance: Positive for: Well-Appearing, Non-Toxic, Comfortable Pain Distress: None Mental Status: Positive for: Alert and Oriented X 3 - Systems Exam Head: Present: Atraumatic, Normocephalic Pupils: Present: PERRL Extroacular Muscles: Present: EOMI Conjunctiva: Present: Normal Mouth: Present: Moist Mucous Membranes Neck: Present: Normal Range of Motion Respiratory/Chest: Present: Clear to Auscultation, Good Air Exchange. No: Respiratory Distress, Accessory Muscle Use Cardiovascular: Present: Regular Rate and Rhythm, Normal S1, S2. No: Murmurs Abdomen: Present: Distention (abdominal distention), Other (positive fluid wave). No: Tenderness, Peritoneal Signs Back: Present: Normal Inspection Upper Extremity: Present: Normal Inspection. No: Cyanosis, Edema Lower Extremity: Present: Edema (2+ LE edema) Neurological: Present: GCS=15, Speech Normal Skin: Present: Warm, Dry, Normal Color. No: Rashes Psychiatric: Present: Alert, Oriented x 3, Normal Insight, Normal Concentration Medical Decision Making ED Course and Treatment: 09/21/18 14:26 Impression: 88 yea old male presents complaining of abdominal distention, abdominal discomfort, and urinary retention for the past few weeks. Plan: -- CT Abd & pelvis w/o contrast -- EKG -- Labs -- Reassess and disposition Prior Visits: Notes and results from previous visits were reviewed. Progress Notes: EKG shows Sinus at 61 BPM with afib, LBBB. Interpreted by me. - Lab Interpretations I have reviewed the lab results: Yes - RAD Interpretation Radiology Orders: 09/21/18 14:22 ABD & PELVIS W/O PO OR IV CONT [CT] Stat Rose Grader: Radiologist - EKG Interpretation Interpreted by ED Physician: Yes Type: 12 lead EKG - Scribe Statement The provider has reviewed the documentation as recorded by the Yeyo Langston Provider Scribe Attestation: All medical record entries made by the Eduardoibjeri were at my direction and personally dictated by me. I have reviewed the chart and agree that the record accurately reflects my personal performance of the history, physical exam, medical decision making, and the department course for this patient. I have also personally directed, reviewed, and agree with the discharge instructions and disposition. Disposition/Present on Arrival - Present on Arrival Any Indicators Present on Arrival: No History of DVT/PE: No History of Uncontrolled Diabetes: No Urinary Catheter: No History of Decub. Ulcer: No History Surgical Site Infection Following: None - Disposition Have Diagnosis and Disposition been Completed?: Yes Diagnosis: Acute renal failure, Ascites Disposition: HOSPITALIZED Disposition Time: 15:30 Condition: GUARDED
[2018-09-21 14:45] LABS: BASO # 0.01 K/mm3 (0.0-2.0); BASO % 0.2 % (0.0-3.0); EOS % 0.6 % (1.5-5.0); HEMOGLOBIN 9.7 g/dL (14.0-18.0); LYMPH % 20.9 % (22.0-35.0); MEAN CELL VOLUME 104.8 fl (80.0-105.0); MEAN CORPUSCULAR HEMOGLOBIN 33.2 pg (25.0-35.0); MEAN CORPUSCULAR HGB CONC 31.7 g/dl (31.0-37.0); MEAN PLATELET VOLUME 10.9 fl (7.0-11.0); MONO # 0.3 (0.1-0.6); MONO % 6.8 % (1.0-6.0); RBC 2.92 10^6/uL (3.5-6.1); RED CELL DISTRIBUTION WIDTH 14.7 % (11.5-14.5); WHITE BLOOD COUNT 4.9 10^3/uL (4.5-11.0)
[2018-09-21 14:54] LABS: ALBUMIN 3.5 g/dL (3.0-4.8); CALCIUM 8.8 mg/dL (8.4-10.5)
[2018-09-21 14:56] LABS: INR 1.24; PARTIAL THROMBOPLASTIN TIME 29.9 Seconds (26.9-38.3); PROTHROMBIN TIME 13.8 SECONDS (9.4-12.5)
--- NOTE | 2018-09-21 15:21 | CT ---
Date of service: 09/21/2018 PROCEDURE: CT Abdomen and Pelvis without intravenous contrast HISTORY: increasing abd distension- h/o ascites COMPARISON: 06/14/2018 CT scan TECHNIQUE: CT scan of the abdomen and pelvis was performed without contrast.. Contrast dose: None Radiation dose: Total exam DLP = 1149.81 mGy-cm. This CT exam was performed using one or more of the following dose reduction techniques: Automated exposure control, adjustment of the mA and/or kV according to patient size, and/or use of iterative reconstruction technique. FINDINGS: LOWER THORAX: Very small bilateral pleural effusions or pleural thickening is noted. There is additionally mild pericardial fluid, minimally increased from prior study. Mild subsegmental atelectasis and/or scarring is seen at the lung bases. LIVER: Noncontrast imaging of the liver reveals previously identified moderate heterogeneous appearance and nodular contour suggestive of cirrhosis. There are focal areas of low density seen in the right lobe of the liver, probably increased in size from prior study and representing metastatic disease although limited on this noncontrast examination. There is also the suggestion of some increased left liver lobe low-density lesions. No definite intrahepatic ductal dilatation is seen. GALLBLADDER AND BILE DUCTS: Gallbladder is obscured by adjacent ascites but is otherwise normal in size and outline. Common bile duct is unchanged from the prior study. PANCREAS: Visualized pancreas is moderately atrophied with scattered calcification noted. No new focal pancreatic mass is seen. SPLEEN: Unchanged. ADRENALS: Unchanged. KIDNEYS AND URETERS: No new hydronephrosis is seen. Stable nonspecific chronic appearing perinephric changes seen. VASCULATURE: No abdominal aortic aneurysm is seen. Moderate calcific atherosclerotic change of the aorta. BOWEL: Bowel is limited in evaluation due to moderate amounts of abdominal and pelvic ascites no new bowel obstruction is seen. Moderate residual food or debris is seen within the stomach, increased from prior study. APPENDIX: No CT scan evidence of appendicitis. PERITONEUM: Large amount of abdominal and pelvic ascites is once again appreciated this is mildly increased from prior study there is additionally some probable mild amounts of mesenteric induration or edema. LYMPH NODES: A number of small scattered [place]abella celiac and portal hepatis lymph nodes are noted. Additional scattered lymph nodes within the mesentery are not excluded. No new large retroperitoneal lymph nodes or pelvic lymph nodes are seen elsewhere. No inguinal adenopathy is seen. BLADDER: Unremarkable. REPRODUCTIVE: Enlarged prostate gland. BONES: Moderate degenerative changes are seen in the spine. No appreciable new pathologic fracture. OTHER FINDINGS: None. IMPRESSION: Probable interval increase in hepatic metastatic disease although limited by the lack of contrast. Mild increase in large amounts of abdominal and pelvic ascites.
[2018-09-21] MEDS: Lactated Ringer's 1,000 ML IV SCH (21:29)
[2018-09-21] MEDS: Insulin Reg-LOW-Coverage SC SCH (22:00)
[2018-09-22 07:19] LABS: HEMOGLOBIN 8.8 g/dL (14.0-18.0); MEAN CELL VOLUME 103.4 fl (80.0-105.0); MEAN CORPUSCULAR HEMOGLOBIN 33.2 pg (25.0-35.0); MEAN CORPUSCULAR HGB CONC 32.1 g/dl (31.0-37.0); MEAN PLATELET VOLUME 10.7 fl (7.0-11.0); RBC 2.65 10^6/uL (3.5-6.1); RED CELL DISTRIBUTION WIDTH 14.5 % (11.5-14.5); WHITE BLOOD COUNT 4.7 10^3/uL (4.5-11.0)
[2018-09-22 08:09] LABS: ALBUMIN 2.9 g/dL (3.0-4.8); CALCIUM 8.4 mg/dL (8.4-10.5)
[2018-09-22] MEDS: Insulin Reg-LOW-Coverage SC SCH ×3 (08:30→18:04)
--- NOTE | 2018-09-22 09:06 | CARD ---
APPROVED REPORT Date of service: 09/21/2018 EKG Measurement Heart [id number] <Conclusion> Atrial fibrillation Left bundle branch block Abnormal ECG
[2018-09-22] MEDS: Lactated Ringer's 1,000 ML IV SCH (12:23)
--- NOTE | 2018-09-22 16:05 | HP ---
DATE OF EXAM: 09/22/2018 CHIEF COMPLAINT AND HISTORY OF PRESENT ILLNESS: This is an 88-year-old male who has come in to the hospital with complaints of abdominal distension and bloating. The patient had called his primary care doctor, Dr. Monreal's office and he was started on Cipro for UTI. The patient did not start taking his medications. He was advised to go to ER, and got evaluated for paracentesis. The patient has chronic ascites. He has a history of hepatitis C. The patient has no complaints of any chest pain. No abdominal pain. He has lower extremity edema. He has been eating well. REVIEW OF SYSTEMS: He has no fevers or chills. No weakness in the arms or legs. The patient has no diplopia, no dysarthria, no dysphagia. All the review of symptoms are within normal limits except what is mentioned. ALLERGIES: CODEINE, MUSHROOMS, AND VANCOMYCIN. MEDICATIONS: Reviewed in the records. PAST MEDICAL HISTORY: 1. Coronary artery disease status post stent x8. 2. Hepatitis C. 3. Bladder cancer. 4. Diabetes type 2. 5. CHF secondary to systolic dysfunction. 6. Cirrhosis. SOCIAL HISTORY: He was a smoker of 30 years, quit. He denies alcohol or drugs. The patient lives with his . PHYSICAL EXAMINATION: VITAL SIGNS: Temperature is 97.7, pulse of 60, blood pressure 100/59, respirations 20, O2 saturation 99%. Height is 5 feet 7 inches, weight is 202 pounds, BMI is 31.6. GENERAL: The patient is lying in bed, comfortable, and in no acute distress. HEENT: Atraumatic and normocephalic. Anicteric sclerae. Moist mucosa. [place] conjunctivae. No oral lesions. NECK: No JVD, anterior and posterior adenopathy, thyromegaly, or bruits. CARDIOVASCULAR: S1 and S2 regular. No murmurs, rubs or gallops. LUNGS: Clear to auscultation bilaterally. No wheezes, rales, or rhonchi. ABDOMEN: There is no rebound or guarding. It is distended. EXTREMITIES: Lower extremities, there is 1+ edema. NEUROLOGIC: No facial asymmetry. Tongue is midline. No uvula deviation. Power is 5/5 upper extremities and lower extremities. Sensation intact in upper extremities and lower extremities. PSYCHIATRIC: She is awake, alert and oriented x3. No anxiety or depression. She has normal affect. GENITOURINARY: No CVA tenderness. VASCULAR: 2+ pulses in the carotid pulses and pedal pulses. SKIN: No erythema or nodules. SPINE: Shows normal curvature. LABORATORY DATA: White count of 4.9, hemoglobin of 9.7, platelet count is 115. INR is 1.24. Sodium is 135, potassium is 5.1, creatinine is 2.2. Repeat is 2.0. CT of abdomen and pelvis done shows probable interval increase in the hepatic metastatic disease, although it is limited. There is mild increase in large amount of abdominal and pelvic ascites. EKG shows atrial fibrillation at 61. ASSESSMENT: 1. Ascites. 2. Acute kidney injury, improving. 3. Cirrhosis. 4. Coronary artery disease. 5. Hypertension. 6. Dyslipidemia. 7. Bladder cancer. 8. Hepatitis C. 9. Atrial fibrillation, on Coumadin. PLAN: Patient has been on lactated Ringer's because of his acute kidney injury and Januvia for his diabetes. He is on insulin sliding scale. I will restart his Eliquis tomorrow. He is due for his , he will most likely be discharged. Jamarcus Coats MD
[2018-09-22 17:02] VITALS: BP 102/54; PULSE 76; RESP 18; TEMP 97.3; O2SAT 96
--- NOTE | 2018-09-22 17:18 | US ---
PROCEDURE: Ultrasound guided paracentesis. HISTORY: Cirrhosis. Recurrent ascites with abdominal pain and distension. Needs diagnostic and therapeutic paracentesis PHYSICIAN(S): Flex Hilario MD. TECHNIQUE: The relative risks and indications for the procedure were explained to the patient and his family and informed written consent obtained. Sonography of the abdomen was performed in a supine position. This revealed a moderate to large amount of non-loculated ascites, greatest in the right lower quadrant. A puncture site was selected and the area was prepped and draped in the usual sterile fashion. 1% Xylocaine was used to anesthetize the skin and soft tissues. A 7 [place] paracentesis catheter was trocared into the right lower quadrantand 7800 cc of clear straw-colored fluid aspirated. The appropriate labs were sent IMPRESSION: Ultrasound-guided paracentesis in the right lower quadrant. 7800 cc of fluid were aspirated. Labs were sent
[2018-09-22 17:24] LABS: BODY FLUID TYPE PERITONEAL/ASCITES
[2018-09-22 18:23] LABS: BF GROSS APPEARANCE SL CLOUDY (CLEAR)
[2018-09-22 19:13] LABS: BODY FLUID TOTAL COUNT 100 (0-0)
== END 2018-09-22 19:02 | disposition home or self-care (01) ==
LOC: ED 14:00 → ERH 16:49 → 5RSO 19:25
PROVIDERS: ADMIT Internal Medicine Nephrology; ATTEND Internal Medicine Nephrology
DX: N17.9 Acute kidney failure, unspecified (principal); R18.8 Other ascites; B19.20 Unspecified viral hepatitis C without hepatic coma; E11.9 Type 2 diabetes mellitus without complications; E78.5 Hyperlipidemia, unspecified; I11.0 Hypertensive heart disease with heart failure; I25.10 Atherosclerotic heart disease of native coronary artery without angina pectoris; I48.91 Unspecified atrial fibrillation; I50.22 Chronic systolic (congestive) heart failure; K74.60 Unspecified cirrhosis of liver; N39.0 Urinary tract infection, site not specified; Z79.01 Long term (current) use of anticoagulants; Z79.82 Long term (current) use of aspirin; Z85.51 Personal history of malignant neoplasm of bladder; Z87.891 Personal history of nicotine dependence; Z95.5 Presence of coronary angioplasty implant and graft
CPT/HCPCS: 36415; 49083; 74176; 80053; 82140; 82948; 83690; 83735; 84100; 85025; 85027; 85610; 85730; 87070; 87075; 89051; 93005; 99285; G0378; J7120